=== PATIENT | female | born 1955 | race Caucasian/White ===

== ENCOUNTER 2019-12-24 14:16 | Outpatient (CLI) | payer MEDICARE, BC, SELFPAY ==
--- NOTE | ~2019-12-24 | CT_ITS ---
EXAMINATION: CT lung screening EXAM DATE: 12/24/2019 14:44 INDICATION: Personal history of nicotine dependence. TECHNIQUE: Spiral low dose CT of the chest without contrast. Axial, coronal and sagittal images were reviewed. The dose-length product (DLP) for this examination was 81.55 mGy-cm. The exposure was ta ilored according to patient size (auto mA exposure control), and iterative reconstruction (ASIR) was used as additional dose reduction technique. Comparison is made to prior examination from 12/05/2018. FINDINGS: Interval decrease in size of previously seen right upper lobe reticulonodular opacities. T here is moderate emphysema. Tracheobronchial tree is patent. There is no mediastinal, hilar or axi llary lymphadenopathy. There are no pleural or pericardial effusions. There is no pneumothorax. Heart normal in size. There is mild coronary arterial calcification, arterial sclerosis. Upper abd omen is unremarkable. There is mild to moderate thoracic spondylosis without osteoblastic or osteol ytic lesions identified. IMPRESSION: Lung-RADS category 2, benign appearance or behavior (<1% chance of malignancy); recommend continued LDCT screening in 1 year. Reviewed, dictated and finalized at location B. L CADD TECHNICIAN
== END 2019-12-24 14:17 | disposition home or self-care (01) ==
PROVIDERS: PCP Family Medicine; Visit Provider Nurse Practitioner Family
DX: Z12.2 Encounter for screening for malignant neoplasm of respiratory organs (principal); Z87.891 Personal history of nicotine dependence
CPT/HCPCS: G0297

== ENCOUNTER 2022-05-10 15:09 | Outpatient (CLI) | payer MEDICARE, OTHER, SELFPAY ==
--- NOTE | ~2022-05-10 | CT_ITS ---
EXAMINATION: CT lung screening DATE: 05/10/2022 15:40 INDICATION: Hypoxia. Shortness of breath. TECHNIQUE: Computed tomography (CT) of the chest was performed without intravenous contrast. The dose -length product was 67.67 mGy-cm. Automated exposure control and iterative reconstruction technique w ere employed. COMPARISON: CT dated 12/24/2019 FINDINGS: Heart size normal. No significant pleural or pericardial effusion. No thoracic lymphadenopa thy. Upper abdomen is unremarkable. There is atherosclerosis of the aorta and coronary arteries. Ther e are small nodules in the right upper lobe with peripheral scarring. Largest nodules measure approxi mately 2-3 mm. No endobronchial lesions. There is focal scarring/atelectasis in the right lower lobe which is unchanged. No endobronchial lesions. Severe bullous emphysema. There is evidence for chronic granulomatous disease. There is dextroscoliosis. No focal lytic or blastic lesions. Moderate thoraci c spondylosis. IMPRESSION: 1. Lung-RADS category 2: Benign appearance or behavior. Continue annual screening with noncontrast lo w-dose chest CT in 12 months. Reviewed, dictated and finalized at location A. IMPRESSION: 1. Lung-RADS category 2: Benign appearance or behavior. Continue annual screeni ng with noncontrast low-dose chest CT in 12 months.
== END 2022-05-10 15:10 | disposition home or self-care (01) ==
LOC: ANHIMG 15:10
PROVIDERS: PCP Nurse Practitioner Family; Visit Provider Nurse Practitioner Family
DX: Z12.2 Encounter for screening for malignant neoplasm of respiratory organs (principal); Z87.891 Personal history of nicotine dependence
CPT/HCPCS: 71271

== ENCOUNTER 2022-10-05 14:16 | Outpatient (CLI) | payer MEDICARE, OTHER, SELFPAY ==
[2022-10-05 19:11] LABS: Basophils Percent Auto 0.5 % (0.2-1.2); Eosinophils Absolute Auto 0.2 K/mm3 (0-0.3); Eosinophils Percent Auto 1.9 % (0-4.4); Hematocrit 38.1 % (37.0-47.0); Hemoglobin 11.3 g/dL (12.0-15.0); Immature Granulocyte Absolute 0.01 K/mm3 (0.00-0.031); Immature Granulocyte Percent A 0.1 % (0-0.5); Lymphocytes Absolute Auto 3.24 K/mm3 (0.9-3.2); Lymphocytes Percent Auto 41.8 % (18.3-44.2); Mean Corpuscular HGB Conc 29.7 g/dl (32-36); Mean Corpuscular Hemoglobin 26.6 pg (26-34); Mean Corpuscular Volume 89.6 fl (80-100); Mean Platelet Volume 11.7 fl (7.4-10.4); Monocytes Absolute Auto 0.7 K/mm3 (0.1-0.6); Monocytes Percent Auto 9.4 % (2.6-8.5); Neutrophils Absolute Auto 3.6 K/mm3 (1.3-6.7); Neutrophils Percent Auto 46.3 % (45.5-73.1); Platelet Count Result 248 k/mm3 (150-375); Red Blood Count 4.25 M/mm3 (4.2-5.4); Red Cell Distribution Width 14.1 % (11.5-14.5); White Blood Count 7.8 K/mm3 (4.5-10.0)
[2022-10-05 19:34] LABS: Hypochromasia 1+ (NORMAL); Platelet Estimate Adequate (Adequate)
[2022-10-05 19:38] LABS: Alanine Aminotransferase 17 U/L (6-35); Albumin Level 3.8 g/dL (3.5-5.1); Alkaline Phosphatase 107 U/L (38-126); Anion Gap 1 mmol/L (8-16); Aspartate Amino Transferase 31 U/L (14-36); Bilirubin,Total 0.2 mg/dL (0.2-1.3); Blood Urea Nitrogen 8 mg/dL (7-17); Calcium 8.5 mg/dL (8.4-10.2); Carbon Dioxide 39 mmol/L (22-30); Chloride 98 mmol/L (98-107); Cholesterol 156 mg/dL (0-200); Estimated Glomerular Filt Rate > 60; Glucose 93 mg/dL (65-110); HDL Direct 64 mg/dL; Potassium 4.1 mmol/L (3.4-5.0); Sodium 138 mmol/L (137-145); Triglycerides 77 mg/dL (<150)
[2022-10-05 19:49] LABS: LDL Cholesterol Direct 54 mg/dL
== END 2022-10-05 14:17 | disposition home or self-care (01) ==
LOC: ANHGOSHLAB 14:18
PROVIDERS: PCP Nurse Practitioner Family; Visit Provider Nurse Practitioner Family
DX: E78.5 Hyperlipidemia, unspecified (principal); I10 Essential (primary) hypertension
CPT/HCPCS: 36415; 80053; 80061; 84443; 85025

== ENCOUNTER 2022-12-03 14:47 | Outpatient (CLI) | payer MEDICARE, OTHER, SELFPAY ==
--- NOTE | ~2022-12-03 | MM_ITS ---
EXAMINATION: MM screening ana BI w sally HISTORY: Screening mammogram TECHNIQUE: Craniocaudal and mediolateral oblique 3-D tomosynthesis images were obtained and synthetic 2-D images were generated. CAD analysis was submitted and interpreted. COMPARISON: 10/08/2018, 10/26/2016 bilateral screening mammogram examinations BREAST PARENCHYMAL COMPOSITION: There are scattered areas of fibroglandular density. FINDINGS: There is no evidence of suspicious mass, calcification, or architectural distortion to sugg est malignancy in either breast. There has been no suspicious interval change. IMPRESSION: 1. No mammographic evidence of malignancy. 2. Recommend routine screening mammography in one year. BI-RADS Category 1: Negative Reviewed, dictated and finalized at location A. PULLER
--- NOTE | ~2022-12-03 | DEXA_ITS ---
Bone Density Report Name: KAROL DUNBAR Age: 67 Sex: Female Ethnicity: White Date of : 1955 Indication: postmenopausal; screening for osteoporosis; height loss; asthma or emphysema; secondary osteoporosis; Referring Provider: OLIVERIO RO Study: Bone densitometry was performed. Exam Date: December 03, 2022 Accession number: [id number] Bone Density: Region BMD T-score Z-score Classification AP Spine(L1-L4) 0.942 -1.0 1.0 Normal Femoral Neck (Left) 0.611 -2.1 -0.5 Osteopenia Total Hip (Left) 0.617 -2.7 -1.3 Osteoporosis Femoral Neck (Right) 0.436 -3.7 -2.1 Osteoporosis Total Hip (Right) 0.515 -3.5 -2.1 Osteoporosis Total Hip Mean 0.566 -3.1 -1.7 Osteoporosis World Health Organization criteria for BMD impression classify patients as: Normal (T-score at or above -1.0), Osteopenia (T-score between -1.0 and -2.5), or Osteoporosis (T-score at or below -2.5). 10-year Fracture Risk: FRAX not reported because: Some T-score for Spine Total or Hip Total or Femoral Neck at or below -2.5 Clinical Information Provided by Patient: Has secondary osteoporosis Has the following medical conditions: Asthma or Emphysema Patient maximum height was 62 Menopause Age: 44 No regular weight bearing exercise Drinks caffeinated beverages Onset of menses at age 11 Number of children 0 Impression: The patient has osteoporosis, based on the Right Femoral Neck T-score. Discussion: HIGH RISK OF FRACTURE. BONE DENSITY IS UNDESIRABLY LOW AT ONE OR MORE SKELETAL SITES, CONSISTENT WITH OSTEOPOROSIS. ALSO, BONE DENSITY IS LOWER THAN EXPECTED FOR AGE AND SEX AT ONE OR MORE SKELETAL SITES; RECOMMEND A DILIGENT SEARCH FOR SECONDARY CAUSES OF BONE LOSS. This patient's lowest T-score meets the World Health Organization's (WHO) criteria for osteoporosis at one or more sites (T-score -2.5 or below). In untreated patients, the risk of osteoporotic fracture increases approximately two-fold for each 1.0 SD decrease in T-score. Low bone density is not the only risk factor for fracture; also consider factors such as patient's age, frailty or poor health, risk of falling, risk of injury, previous osteoporotic fracture, family history of osteoporosis, cigarette smoking, low body weight, etc. Not everyone with low bone mineral density has osteoporosis; osteomalacia and other metabolic bone disorders should also be considered. Patients who have osteoporosis should be evaluated for specific diseases and conditions (secondary causes) that may cause or contribute to bone loss. The [place] Association of Clinical Endocrinologists (AACE) and National Osteoporosis Foundation (NOF) recommend pharmacologic intervention for all postmenopausal women whose T-score is in this range. Also, this patient's bone mineral density is below the range consid
== END 2022-12-03 14:48 | disposition home or self-care (01) ==
LOC: ANHIMG 14:48
PROVIDERS: PCP Nurse Practitioner Family; Visit Provider Nurse Practitioner Family
DX: Z12.31 Encounter for screening mammogram for malignant neoplasm of breast (principal); Z78.0 Asymptomatic menopausal state; M85.852 Other specified disorders of bone density and structure, left thigh; M81.0 Age-related osteoporosis without current pathological fracture
CPT/HCPCS: 77063; 77067; 77080

== ENCOUNTER 2023-04-17 13:59 | Outpatient (CLI) | payer MEDICARE, OTHER, SELFPAY ==
[2023-04-17 17:00] LABS: Basophils Absolute Auto 0.1 K/mm3 (0.0-0.1); Basophils Percent Auto 0.6 % (0.2-1.2); Eosinophils Absolute Auto 0.1 K/mm3 (0-0.3); Eosinophils Percent Auto 1.1 % (0-4.4); Hematocrit 38.9 % (37.0-47.0); Hemoglobin 11.7 g/dL (12.0-15.0); Immature Granulocyte Absolute 0.02 K/mm3 (0.00-0.031); Immature Granulocyte Percent A 0.2 % (0-0.5); Lymphocytes Absolute Auto 3.15 K/mm3 (0.9-3.2); Lymphocytes Percent Auto 38.5 % (18.3-44.2); Mean Corpuscular HGB Conc 30.1 g/dl (32-36); Mean Corpuscular Hemoglobin 26.7 pg (26-34); Mean Corpuscular Volume 88.6 fl (80-100); Monocytes Absolute Auto 0.9 K/mm3 (0.1-0.6); Monocytes Percent Auto 11.2 % (2.6-8.5); Neutrophils Percent Auto 48.4 % (45.5-73.1); Platelet Count Result 336 k/mm3 (150-375); Red Blood Count 4.39 M/mm3 (4.2-5.4); Red Cell Distribution Width 13.9 % (11.5-14.5); White Blood Count 8.2 K/mm3 (4.5-10.0)
[2023-04-17 17:16] LABS: Cholesterol 155 mg/dL (0-200); HDL Direct 70 mg/dL; Triglycerides 72 mg/dL (<150)
[2023-04-17 17:28] LABS: LDL Cholesterol Direct 63 mg/dL
[2023-04-17 17:48] LABS: Thyroid Stimulating Hormone 0.698 uIU/mL (0.465-4.680)
[2023-04-17 22:13] LABS: Vitamin D 25 Hydroxy < 12.8 ng/mL
== END 2023-04-17 14:00 | disposition home or self-care (01) ==
LOC: ANHGOSHLAB 14:01
PROVIDERS: PCP Nurse Practitioner Family; Visit Provider Nurse Practitioner Family
DX: Z00.00 Encounter for general adult medical examination without abnormal findings (principal); Z13.21 Encounter for screening for nutritional disorder; I10 Essential (primary) hypertension; Z13.220 Encounter for screening for lipoid disorders; Z13.29 Encounter for screening for other suspected endocrine disorder
CPT/HCPCS: 36415; 80061; 82306; 84443; 85025

== ENCOUNTER 2023-05-13 12:47 | Outpatient (CLI) | payer MEDICARE, OTHER, SELFPAY ==
--- NOTE | ~2023-05-13 | CT_ITS ---
CT Scan of the Chest without Contrast: Clinical Indication: Lung cancer screening, personal history of nicotine dependence Technique: Contiguous sections were acquired throughout the chest without intravenous contrast. Dose reduction technique was used on this scan by utilizing automated exposure control and iterative recon struction technique. The dose-length product (DLP) was 57.88 mGy-cm. COMPARISON: 05/10/2022, 12/24/2019 Findings: There is no evidence of any significant mediastinal, hilar or axillary lymphadenopathy. Small calcifi ed mediastinal and right hilar lymph nodes are present. There are atherosclerotic calcifications of t he aorta and coronary arteries. There is no evidence of pleural or pericardial effusion. There is severe emphysema. Stable focal areas of right pleural scarring. Calcified right lower lobe g ranuloma present. Images through the upper abdomen reveal no abnormalities. Impression: Lung RADS 2: Benign appearance. 12 month follow-up screening CT advised. Severe emphysema, unchanged. Reviewed, dictated and finalized at [facility]. Impression: Lung RADS 2: Benign appearance. 12 month follow-up screening CT advised. Severe emphysema, unchanged.
== END 2023-05-13 12:48 | disposition home or self-care (01) ==
PROVIDERS: PCP Nurse Practitioner Family; Visit Provider Nurse Practitioner Family
DX: Z12.2 Encounter for screening for malignant neoplasm of respiratory organs (principal); Z87.891 Personal history of nicotine dependence
CPT/HCPCS: 71271

== ENCOUNTER 2024-05-21 12:15 | Outpatient (CLI) | payer MEDICARE, OTHER, SELFPAY ==
--- NOTE | ~2024-05-21 | CT_ITS ---
CT Scan of the Chest without Contrast: Clinical Indication: Lung cancer screening, nicotine dependence COMPARISON: 05/13/2023 Technique: Contiguous sections were acquired throughout the chest without intravenous contrast. Dose reduction technique was used on this scan by utilizing automated exposure control and iterative recon struction technique. The dose-length product (DLP) was 63.34 mGy-cm. Findings: There is no evidence of any significant mediastinal, hilar or axillary lymphadenopathy. Small calcifi ed mediastinal lymph nodes are present. Mild coronary artery calcifications are present. There is no evidence of pleural or pericardial effusion. Advanced emphysema and right apical bullous changes are again present. Stable focal irregular probabl e scarring in the right upper lobe peripherally. Stable right lower lobe scarring. No suspicious pulm onary nodule seen. Images through the upper abdomen reveal no abnormalities. Impression: Lung RADS 2: Benign appearance. 12 month follow-up screening CT advised. Reviewed, dictated and finalized at [facility]. Impression: Lung RADS 2: Benign appearance. 12 month follow-up screening CT advised.
== END 2024-05-21 12:16 | disposition home or self-care (01) ==
LOC: ANHIMG 12:18
PROVIDERS: PCP Nurse Practitioner Family; Visit Provider Nurse Practitioner Family
DX: Z12.2 Encounter for screening for malignant neoplasm of respiratory organs (principal); Z87.891 Personal history of nicotine dependence
CPT/HCPCS: 71271

== ENCOUNTER 2025-02-25 12:29 | Outpatient (CLI) | payer MEDICARE, OTHER, SELFPAY ==
--- NOTE | ~2025-02-25 | XR_ITS ---
XR chest 2V 02/25/2025 12:52 Indication: Dyspnea Procedure: 2 view chest Comparison: 01/28/2012 Findings: The lungs are hyperinflated which is consistent with, but not diagnostic of chronic obstruc tive pulmonary disease. There is evidence of chronic granulomatous disease. Heart size normal. There is atherosclerosis of the aorta. No focal air space disease, pulmonary edema, pleural effusion or brian pected pneumothorax. There is scoliosis. There is moderate-severe thoracic spondylosis. Impression: 1: No acute cardiopulmonary disease. Reviewed, dictated and finalized at location A. Impression: 1: No acute cardiopulmonary disease.
== END 2025-02-25 12:30 | disposition home or self-care (01) ==
LOC: GOSHIMG 12:31
PROVIDERS: PCP Family Medicine; Visit Provider Nurse Practitioner Family
DX: R06.00 Dyspnea, unspecified (principal)
CPT/HCPCS: 71046

== ENCOUNTER 2025-05-03 14:22 | Outpatient (CLI) | payer MEDICARE, OTHER, SELFPAY ==
--- OUTSIDE RECORDS SUMMARY | 2025-05-03 14:29 | XMS_ITS | Clinical Summary ---
Author Organization [facility] Physician Office Building [address] [place] [id number] Care Team Providers Care Editorial Cartoonist Name Role Phone Gianna Cruz MD Primary Care Provider Allergies No known active allergies Medications roflumilast (DALIRESP) 500 mcg tabletIndications :Prevention of Bronchospasm with Chronic Bronchitis Take 1 tablet (500 mcg total) by mouth daily 90 tablet 3 0 Active buPROPion (WELLBUTRIN) 100 mg tablet Take 1 tablet (100 mg total) by mouth 2 (two) times a day 180 tablet 3 0 Active albuterol HFA (PROVENTIL HFA,VENTOLIN HFA,PROAIR HFA) 90 mcg/actuation inhaler Inhale 2 puffs every 6 (six) hours as needed for wheezing 1 Inhaler 3 0 Active aspirin 81 mg enteric coated tablet Take 1 tablet (81 mg total) by mouth daily 90 tablet 3 0 Active atorvastatin (LIPITOR) 80 mg tablet TAKE 1 TABLET(80 MG) BY MOUTH DAILY 90 tablet 3 4 Active carvediloL (COREG) 6.25 mg tablet TAKE 1 TABLET(6.25 MG) BY MOUTH TWICE DAILY WITH MEALS 180 tablet 1 5 Active lisinopriL (PRINIVIL,ZESTRIL ) 5 mg tablet TAKE 1 TABLET(5 MG) BY MOUTH DAILY 90 tablet 1 5 Active Active Problems Problem Noted Date Diagnosed Date Primary hypertension 04/16/2023 Assessment & Plan (05/04/2024 2:05 PM CDT): Well controlled with carvedilol and lisinopril. Continue to monitor blood pressure and may adjust as needed. Assessment & Plan (11/08/2023 2:54 PM CASE MANAGERS): Controlled with carvedilol and lisinopril. No changes recommended. Assessment & Plan (04/16/2023 3:20 PM CDT): Controlled. Continue carvedilol and lisinopril. Chronic obstructive pulmonary disease 11/14/2021 Assessment & Plan (11/14/2021 2:08 PM CASE MANAGERS): Stable on home O2. Hyperlipidemia 11/14/2021 Assessment & Plan (05/04/2024 2:05 PM CDT): Continue high-intensity statin, atorvastatin 80 mg daily. Assessment & Plan (11/08/2023 2:54 PM CASE MANAGERS): Continue high-intensity statin, atorvastatin 80 mg daily Assessment & Plan (04/16/2023 3:18 PM CDT): Stable, continue atorvastatin Assessment & Plan (09/14/2022 3:31 PM CASE MANAGERS): Continue atorvastatin. Assessment & Plan (11/14/2021 2:08 PM CASE MANAGERS): Check Lipids, continue atorvastatin Coronary artery disease invo lving [place] coronary artery of [place] heart without angina pectoris 05/17/2020 Assessment & Plan (05/04/2024 2:05 PM CDT): The patient remains asymptomatic. Continue aspirin and carvedilol. Assessment & Plan (11/08/2023 2:54 PM CASE MANAGERS): Doing well. Continue aspirin and carvedilol. Assessment & Plan (04/16/2023 3:18 PM CDT): No angina, continue ASA and carvedilol. Assessment & Plan (09/14/2022 3:31 PM CASE MANAGERS): Remains asymptomatic. Continue aspirin. Assessment & Plan (11/14/2021 2:08 PM CASE MANAGERS): Remains asymptomatic now a decade post stent. Assessment & Plan (05/16/2021 1:30 PM CDT): Cardiac stable. No changes recommended History of percutaneous coronary intervention Immunizations Immunization Administration Dates Next Due Pfizer SARS-CoV-2 Monovalent Vaccination (12+ Yrs) PURPLE 01/10/2021,12/20/2020 Social History Tobacco Use Types Packs/Day Years Used Date Smoking Tobacco: Former Smokeless Tobacco: Never Tobacco Cessation:Counseling Given: Not Answered Personal Safety Answer Date Recorded Getting School Help Needed Not on file 11/01 Comments Unknown Sex and Gender Information Value Date Recorded Sex Assigned at Not on file Legal Sex Female 11:02 AM CASE MANAGERS Gender Identity Not on file Sexual Orientation Not on file Obstetrics History Last Filed Vital Signs Vital Sign Reading Time Taken Comments Blood Pressure 134/69 05/04/2024 1:37 PM CDT Pulse 73 05/04/2024 1:37 PM CDT Temperature 36.6 C (97.8 F) 05/17/2020 1:04 PM CDT Respiratory Rate 16 05/04/2024 1:37 PM CDT Oxygen Saturation 98% 05/04/2024 1:37 PM CDT Inhaled Oxygen Concentration - - Weight 50.3 kg (111 lb) 05/04/2024 1:37 PM CDT Height 152.4 cm (5') 11/08/2023 2:01 PM CASE MANAGERS Body Mass Index 21.68 11/08/2023 2:01 PM CASE MANAGERS Plan of Treatment Health Maintenance Due Date Last Done Comments Breast Cancer Screening-Mammogram 1955 Colon Cancer Screening-Colonoscopy 1955 Depression Screening 1955 Fall Risk Assessment 1955 Hepatitis C Screening 1955 Osteoporosis Screening-Bone Density Scan 1955 Hepatitis B Screening 1973 Pneumococcal vaccine 65+ (1 of 2 - PCV) 1974 Zoster Vaccine (1 of 2) 2005 Well Visit 65+ 2020 DTaP/Tdap/Td Vaccine (2 - Td or Tdap) 10/28/2023 10/28/2013 Covid-19 Vaccine (3 - 2023-2 5 season) 2024 01/10/2021, 12/20/2020 Influenza Vaccine (Season Ended) 2025 08/16/2019, 08/25/2018, 08/30/2016, Additional history exists Insurance MEDICARE [facility] Address: [address] [address] [place] [address] [employer] [facility] Address: [address] [address] [facility] MEDICARE [facility] Independent Space INSURANCE [employer] Care Teams Editorial Cartoonist Relationship Specialty Start Date End Date Gianna Cruz MD PCP - General Family Practice 05/16/21
--- OUTSIDE RECORDS SUMMARY | 2025-05-03 14:29 | XMS_ITS | Referral Summary ---
Author Organization [facility] Physician Office Building [address] [place] [id number] Care Team Providers Care Manager Cardiovascular Name Role Phone Gianna Cruz MD Primary [...] needed. Assessment & Plan (11/08/2023 2:54 PM SUPERVISOR ADVICE): Controlled with carvedilol and lisinopril. No changes recommended. Assessment & Plan (04/16/2023 3:20 PM CDT): Controlled. Continue carvedilol and lisinopril. Chronic obstructive pulmonary disease 11/14/2021 Assessment & Plan (11/14/2021 2:08 PM SUPERVISOR ADVICE): Stable on home O2. Hyperlipidemia 11/14/2021 Assessment & Plan (05/04/2024 2:05 PM CDT): Continue high-intensity statin, atorvastatin 80 mg daily. Assessment & Plan (11/08/2023 2:54 PM SUPERVISOR ADVICE): Continue high-intensity statin, atorvastatin 80 mg daily Assessment & Plan (04/16/2023 3:18 PM CDT): Stable, continue atorvastatin Assessment & Plan (09/14/2022 3:31 PM SUPERVISOR ADVICE): Continue atorvastatin. Assessment & Plan (11/14/2021 2:08 PM SUPERVISOR ADVICE): Check Lipids, continue atorvastatin Coronary artery disease invo lving [place] coronary artery of [place] heart without angina pectoris 05/17/2020 Assessment & Plan (05/04/2024 2:05 PM CDT): The patient remains asymptomatic. Continue aspirin and carvedilol. Assessment & Plan (11/08/2023 2:54 PM SUPERVISOR ADVICE): Doing well. Continue aspirin and carvedilol. Assessment & Plan (04/16/2023 3:18 PM CDT): No angina, continue ASA and carvedilol. Assessment & Plan (09/14/2022 3:31 PM SUPERVISOR ADVICE): Remains asymptomatic. Continue aspirin. Assessment & Plan (11/14/2021 2:08 PM SUPERVISOR ADVICE): Remains asymptomatic now a decade post stent. [...] on file Legal Sex Female 11:02 AM SUPERVISOR ADVICE Gender Identity Not on file Sexual Orientation Not on file Last Filed Vital Signs Vital Sign Reading [...] Height 152.4 cm (5') 11/08/2023 2:01 PM SUPERVISOR ADVICE Body Mass Index 21.68 11/08/2023 2:01 PM SUPERVISOR ADVICE Plan of Treatment Not on file Insurance MEDICARE [employer] [facility] MEDICARE [facility] Member Subscriber Plan / Payer (Ef fective 2022-Present) Name:Abbey Benavides Relation to Subscriber:Spouse Name:MITCH BENAVIDES Date of :1953 (Home) Address: [address] [place] [address] Payer ID:[id number] (NAIC) Type:COMMERCIAL Address: [place] [id number] [employer] INSURANCE [employer] Care Teams Manager Cardiovascular Relationship Specialty Start Date End Date Gianna Cruz MD PCP - General Family Practice 05/16/21
[2025-05-03 18:39] LABS: Hematocrit 36.3 % (37.0-47.0); Hemoglobin 10.1 g/dL (12.0-15.0); Mean Corpuscular HGB Conc 27.8 g/dl (32-36); Mean Corpuscular Hemoglobin 28.4 pg (26-34); Mean Corpuscular Volume 102.0 fl (80-100); Platelet Count Result 202 k/mm3 (150-375); Red Blood Count 3.56 M/mm3 (4.2-5.4); White Blood Count 5.6 K/mm3 (4.5-10.0)
[2025-05-03 19:09] LABS: Alanine Aminotransferase 16 U/L (6-35); Albumin Level 3.3 g/dL (3.5-5.1); Alkaline Phosphatase 76 U/L (38-126); Aspartate Amino Transferase 29 U/L (14-36); Bilirubin,Total 0.1 mg/dL (0.2-1.3); Blood Urea Nitrogen 11 mg/dL (7-17); Calcium 8.7 mg/dL (8.4-10.2); Chloride 92 mmol/L (98-107); Cholesterol 158 mg/dL (0-200); Estimated Glomerular Filt Rate > 60; Glucose 93 mg/dL (65-110); HDL Direct 71 mg/dL; Potassium 4.2 mmol/L (3.4-5.0); Sodium 140 mmol/L (137-145); Total Protein 6.2 g/dL (6.3-8.2); Triglycerides 69 mg/dL (<150)
[2025-05-03 19:13] LABS: Carbon Dioxide > 40 mmol/L (22-30)
[2025-05-03 19:23] LABS: Hemoglobin A1C 4.9 % (<5.7)
[2025-05-03 19:42] LABS: Thyroid Stimulating Hormone 1.430 uIU/mL (0.465-4.680)
[2025-05-03 20:01] LABS: Vitamin B12 232.0 pg/mL (239-931)
[2025-05-08 15:48] LABS: Vitamin D 1,25 (OH)2 Total 46 pg/mL (18-72); Vitamin D2 1,25 (OH)2 <8 pg/mL; Vitamin D3 1,25 (OH)2 46 pg/mL
== END 2025-05-03 14:23 | disposition home or self-care (01) ==
LOC: ANHGOSHLAB 14:24
PROVIDERS: PCP Nurse Practitioner Family; Visit Provider Nurse Practitioner Family
DX: E55.9 Vitamin D deficiency, unspecified (principal); I10 Essential (primary) hypertension; R73.03 Prediabetes; R09.02 Hypoxemia; E78.5 Hyperlipidemia, unspecified; E53.8 Deficiency of other specified B group vitamins
CPT/HCPCS: 36415; 80053; 80061; 82607; 82652; 83036; 84443; 85027

== ENCOUNTER 2025-05-14 13:37 | Inpatient (IN) | payer MEDICARE, OTHER, SELFPAY ==
--- NOTE | ~2025-05-14 | XR_ITS ---
XR abdomen/kub 1V 05/19/2025 10:18 INDICATION: Obstruction versus constipation TECHNIQUE: KUB COMPARISON: None FINDINGS: Bowel gas pattern is normal. There is no evidence of free air, mass, organomegaly, ascites or obstruction. There is moderate fecal impaction in the colon. No abnormal calculi are seen. There is a intertrochanteric nail of the right femur. Severe osteoarthritis of the hips. There is moderate lower thoracic and lumbar spondylosis with levoscoliosis. IMPRESSION: 1: Moderate fecal impaction of the colon.. Reviewed, dictated and finalized at location A.
--- NOTE | ~2025-05-14 | XR_ITS ---
XR chest 1V 05/14/2025 14:29 Indication: Possible hip fracture Procedure: AP view of the chest Comparison: 02/25/2025 Findings: Heart size normal. No focal air space disease, pulmonary edema, pleural effusion or suspect ed pneumothorax. The lungs are hyperinflated which is consistent with, but not diagnostic of chronic obstructive pulmonary disease. No acute osseous abnormality. Impression: 1: No acute cardiopulmonary disease. Reviewed, dictated and finalized at location B. Impression: 1: No acute cardiopulmonary disease.
--- NOTE | ~2025-05-14 | XR_ITS ---
XR hip RT 2V w AP pelvis, XR femur RT min 2V 05/14/2025 14:29 Indication: Possible hip fracture. Procedure: AP pelvis and 2 views right hip and 2 views of the right femur Comparison: No prior studies for comparison. Findings: There is a displaced right femoral intertrochanteric fracture with varus angulation. Osteop enia. There is osteoarthritis of the hips which appear symmetric. There is lower lumbar spondylosis. Pelvic rings intact. No focal soft tissue abnormality. No foreign bodies. Impression: 1: Displaced right femoral intertrochanteric fracture with varus angulation. Reviewed, dictated and finalized at location B. Impression: 1: Displaced right femoral intertrochanteric fracture with varus angulation. Impression: 1: Displaced right femoral intertrochanteric fracture with varus angulation.
--- NOTE | ~2025-05-14 | XR_ITS ---
XR surgery orthopedic 05/15/2025 10:59 Indication: Right IT nail placement Procedure: 6 fluoroscopic images of the right hip. 1 minute 10 seconds of fluoroscopy time. Comparison: Right hip series dated 05/14/2025 Findings: Interval placement of intertrochanteric nail with dynamic compression screw transfixing the right femoral neck. Fracture fragments in near-anatomic alignment post reduction. There is a single distal interlocking screw. Impression: 1: Near-anatomic alignment of right femoral intertrochanteric fracture status post reduction with an IT nail. Reviewed, dictated and finalized at location A. Impression: 1: Near-anatomic alignment of right femoral intertrochanteric fracture status p ost reduction with an IT nail.
[2025-05-14 13:37] VITALS: BP 149/60; PULSE 81; RESP 18; TEMP 36.8; O2SAT 100
--- OUTSIDE RECORDS SUMMARY | 2025-05-14 14:06 | XMS_ITS | Referral Summary ---
Author Organization [facility] Physician Office Building [address] [place] [id number] Care Team Providers Care Web Master Name Role Phone Gianna Cruz MD Primary [...] needed. Assessment & Plan (11/08/2023 2:54 PM SPIRITUAL CARE COORDINATOR): Controlled with carvedilol and lisinopril. No changes recommended. Assessment & Plan (04/16/2023 3:20 PM CDT): Controlled. Continue carvedilol and lisinopril. Chronic obstructive pulmonary disease 11/14/2021 Assessment & Plan (11/14/2021 2:08 PM SPIRITUAL CARE COORDINATOR): Stable on home O2. Hyperlipidemia 11/14/2021 Assessment & Plan (05/04/2024 2:05 PM CDT): Continue high-intensity statin, atorvastatin 80 mg daily. Assessment & Plan (11/08/2023 2:54 PM SPIRITUAL CARE COORDINATOR): Continue high-intensity statin, atorvastatin 80 mg daily Assessment & Plan (04/16/2023 3:18 PM CDT): Stable, continue atorvastatin Assessment & Plan (09/14/2022 3:31 PM SPIRITUAL CARE COORDINATOR): Continue atorvastatin. Assessment & Plan (11/14/2021 2:08 PM SPIRITUAL CARE COORDINATOR): Check Lipids, continue atorvastatin Coronary artery disease invo lving [place] coronary artery of [place] heart without angina pectoris 05/17/2020 Assessment & Plan (05/04/2024 2:05 PM CDT): The patient remains asymptomatic. Continue aspirin and carvedilol. Assessment & Plan (11/08/2023 2:54 PM SPIRITUAL CARE COORDINATOR): Doing well. Continue aspirin and carvedilol. Assessment & Plan (04/16/2023 3:18 PM CDT): No angina, continue ASA and carvedilol. Assessment & Plan (09/14/2022 3:31 PM SPIRITUAL CARE COORDINATOR): Remains asymptomatic. Continue aspirin. Assessment & Plan (11/14/2021 2:08 PM SPIRITUAL CARE COORDINATOR): Remains asymptomatic now a decade post stent. [...] on file Legal Sex Female 11:02 AM SPIRITUAL CARE COORDINATOR Gender Identity Not on file Sexual Orientation [...] Height 152.4 cm (5') 11/08/2023 2:01 PM SPIRITUAL CARE COORDINATOR Body Mass Index 21.68 11/08/2023 2:01 PM SPIRITUAL CARE COORDINATOR Plan of Treatment Not on file Insurance MEDICARE [employer] [facility] MEDICARE [facility] Member Subscriber Plan / Payer (Ef fective 2022-Present) Name:Abbey Benavides Relation to Subscriber:Spouse Name:MITCH BENAVIDES Date of :1953 (Home) Address: [address] [place] [address] Payer ID:[id number] (NAIC) Type:COMMERCIAL Address: [place] [id number] [employer] INS[employer]ANCE [employer] Care Teams Web Master Relationship Specialty Start Date End Date Gianna Cruz MD PCP - General Family Practice 05/16/21
--- OUTSIDE RECORDS SUMMARY | 2025-05-14 14:06 | XMS_ITS | Clinical Summary ---
Author Organization [facility] Physician Office Building [address] [place] [phone] Care Team Providers Care Field Sales Representative Name Role Phone Gianna Cruz MD Primary [...] needed. Assessment & Plan (11/08/2023 2:54 PM HEALTH CARE ANALYST): Controlled with carvedilol and lisinopril. No changes recommended. Assessment & Plan (04/16/2023 3:20 PM CDT): Controlled. Continue carvedilol and lisinopril. Chronic obstructive pulmonary disease 11/14/2021 Assessment & Plan (11/14/2021 2:08 PM HEALTH CARE ANALYST): Stable on home O2. Hyperlipidemia 11/14/2021 Assessment & Plan (05/04/2024 2:05 PM CDT): Continue high-intensity statin, atorvastatin 80 mg daily. Assessment & Plan (11/08/2023 2:54 PM HEALTH CARE ANALYST): Continue high-intensity statin, atorvastatin 80 mg daily Assessment & Plan (04/16/2023 3:18 PM CDT): Stable, continue atorvastatin Assessment & Plan (09/14/2022 3:31 PM HEALTH CARE ANALYST): Continue atorvastatin. Assessment & Plan (11/14/2021 2:08 PM HEALTH CARE ANALYST): Check Lipids, continue atorvastatin Coronary artery disease invo lving [place] coronary artery of [place] heart without angina pectoris 05/17/2020 Assessment & Plan (05/04/2024 2:05 PM CDT): The patient remains asymptomatic. Continue aspirin and carvedilol. Assessment & Plan (11/08/2023 2:54 PM HEALTH CARE ANALYST): Doing well. Continue aspirin and carvedilol. Assessment & Plan (04/16/2023 3:18 PM CDT): No angina, continue ASA and carvedilol. Assessment & Plan (09/14/2022 3:31 PM HEALTH CARE ANALYST): Remains asymptomatic. Continue aspirin. Assessment & Plan (11/14/2021 2:08 PM HEALTH CARE ANALYST): Remains asymptomatic now a decade post stent. [...] on file Legal Sex Female 11:02 AM HEALTH CARE ANALYST Gender Identity Not on file Sexual Orientation [...] Height 152.4 cm (5') 11/08/2023 2:01 PM HEALTH CARE ANALYST Body Mass Index 21.68 11/08/2023 2:01 PM HEALTH CARE ANALYST Plan of Treatment Health Maintenance Due Date [...] 5 season) 2024 01/10/2021, 12/20/2020 Influenza Vaccine (#1) 2025 9, 08/25/2018, 08/30/2016, Additional history exists Insurance MEDICARE [facility] Address: [address] [address] [place] [address] [employer] [facility] Address: [address] [phone] [facility] Member Subscriber Plan / Payer (Ef fective 2022-Present) Name:Abbey Benavides Relation to Subscriber:Spouse Name:MITCH BENAVIDES Date of :1953 (Home) Address: [address] [place] [address] Payer ID:[id number] (NAIC) Type:COMMERCIAL Address: [place] [phone] MEDICARE [facility] [employer] Care Teams Field Sales Representative Relationship Specialty Start Date End Date Gianna Cruz MD PCP - General Family Practice 05/16/21
--- NOTE | 2025-05-14 14:49 | ECG_ITS ---
Test Date: 2025-05-14 15:05:29 Measurements Intervals [place] Rate: 80 P: 85 WA: 151 QRS: 60 QRSD: 89 T: 75 QT: 354 QTc: 409 Interpretive Statements SINUS RHYTHM NORMAL ELECTROCARDIOGRAM No previous ECG available for comparison Electronically Signed On 05-15-2025 08:44:39 CDT by Mir Rodriguez M.D.
--- NOTE | 2025-05-14 14:51 | ED.FALL ---
HPI - Fall General Chief Complaint: Fall <Promise Miles PA-C - Last Filed: 05/14/25 19:12> Stated Complaint: fall <Promise Miles PA-C - Last Filed: 05/14/25 19:12> Time Seen by Provider: 05/14/25 13:48 <Promise Miles PA-C - Last Filed: 05/14/25 19:12> Source: patient <KALEY Leone Last Filed: 05/14/25 19:12> Mode of arrival: EMS <Promise Miles PA-C - Last Filed: 05/14/25 19:12> Limitations: no limitations <Promise Miles PA-C - Last Filed: 05/14/25 19:12> History of Present Illness HPI Narrative: Patient is a 70-year-old female who presents the ED via EMS with report of a fall. Patient reports she fell around 1:00 a.m. this morning while going to the bathroom. She states she fell on to her right side/hip. She was able to ambulate initially after the fall back to bed, but has not been able to ambulate since waking up this morning. She did not hit her head or lose consciousness. She is not on any anticoagulation. Denies syncope. Sustained some abrasions to her right forearm, but denies pain. Denies numbness. Patient has history of hypertension, CAD, COPD, chronically wears 4 L nasal cannula at baseline. <Promise Miles PA-C - Last Filed: 05/14/25 19:12> Related Data Home Medications: Home Medications ?Medication ?Instructions ?Recorded ?Confirmed ?Last Taken ?Type aspirin 81 mg tablet,delayed 81 mg PO DAILY 12/23/19 05/14/25 Unknown History release (Adult Aspirin Regimen) atorvastatin 80 mg tablet (Lipitor) 80 mg PO DAILY 12/23/19 05/14/25 Unknown History vitamin B complex (B 1 tablet PO DAILY 12/23/19 05/14/25 Unknown History Complex-Vitamin B12 tablet) carvedilol 12.5 mg tablet 6.25 mg PO Q12H 02/21/21 05/14/25 Unknown History <Promise Miles PA-C - Last Filed: 05/14/25 19:12> Allergies/Adverse Reactions: Allergies Allergy/AdvReac Type Severity Reaction Status Date / Time No Known Allergies Allergy Verified 05/14/25 13:48 <Promise Miles PA-C - Last Filed: 05/14/25 19:12> Review of Systems Review of Systems: All systems reviewed & are unremarkable except as noted in HPI. <Promise Miles PA-C - Last Filed: 05/14/25 19:12> All systems reviewed & are unremarkable except as noted in HPI and below <Promise Miles PA-C - Last Filed: 05/14/25 19:12> [facility] Past Medical History Medical History: Medical History Post herpetic neuralgia Neck and shoulder pain Depression Essential (primary) hypertension Dependence on continuous supplemental oxygen Hx of myocardial infarction stent placement - Follows with Dr King Glenroy CRUZ cardiology Lung nodule Osteoporosis HLD (hyperlipidemia) CAD (coronary artery disease) Chronic obstructive pulmonary disease Hypoxemia Former smoker Quit smoking in 2009, 30 pack years. <Promise Miles PA-C - Last Filed: 05/14/25 19:12> Family History Family History: Family History Sibling Family history of cardiovascular disease Mother Family history of cardiovascular disease, Onset Age: 71 Family history of dementia, Onset Age: 71 <Promise Miles PA-C - Last Filed: 05/14/25 19:12> Social History Social History: Social History Smoking packs per day: 1 Smoking cigarettes per day: 20.0 Years smoked: 30 Smoking pack-years: 30.00 Smoking status: Former smoker Second hand tobacco smoke exposure: Yes Alcohol intake: current Do You Feel Safe in your Home?: Yes Lack of Transportation: No Lack of Food: Never True Current Housing: I Have Housing Concerned About Future Housing: No Difficulty Paying Gas/Electric Bills: No Difficulty Paying for Meds: No Currently Unemployed: No Education: Associate Degree Difficulty w/ Childcare or Family Care: No Spiritual care concerns: No <Promise Miles PA-C - Last Filed: 05/14/25 19:12> Exam Narrative: GENERAL: Elderly, chronically ill-appearing, frail/thin, non-toxic, in no acute distress. HEAD: Normocephalic, atraumatic. RESPIRATORY: Airway patent, respirations nonlabored. Coarse lung sounds bilaterally. Occasional wheezing. On 4 L nasal cannula. CARDIOVASCULAR: Regular rate and rhythm without murmurs, rubs, or gallops. Pedal pulses are intact and easily palpable. MUSCULOSKELETAL: Shortening and external rotation noted of right lower extremity. Unable to perform any range of motion at right hip joint. Tenderness to palpation right anterior lateral hip joint. Sensation intact throughout right lower extremity. Able to wiggle toes. Abrasions/bruising to right forearm without focal tenderness. No tenderness over wrist. SKIN: Warm, dry, normal color. NEURO: A&O X3. Speech clear. No ataxic movements. PSYCHIATRIC: Appropriate mood and affect. Normal interaction. <KALEY Leone Last Filed: 05/14/25 19:12> Course SENIOR SALES DIRECTOR/PA Physician Supervision For this patient encounter, I reviewed the SENIOR SALES DIRECTOR or PA documentation, treatment plan, and medical decision making; and I had [id number] time with this patient. <Jose Ritchie MD - Last Filed: 05/14/25 22:03> Vital Signs Vital signs: Vital Signs Temperature 98.3 F 05/14/25 13:37 Pulse Rate 81 05/14/25 13:37 Respiratory Rate 18 05/14/25 13:37 Blood Pressure 149/60 H 05/14/25 13:37 Pulse Oximetry 100 05/14/25 13:37 Oxygen Delivery Nasal Cannula 05/14/25 13:37 Oxygen Flow Rate 4 05/14/25 13:37 Temperature 97.7 F 05/14/25 19:38 Pulse Rate 80 05/14/25 19:38 Respiratory Rate 18 05/14/25 19:38 Blood Pressure 133/61 05/14/25 19:38 Pulse Oximetry 98 05/14/25 20:56 Oxygen Delivery Nasal Cannula 05/14/25 20:56 Oxygen Flow Rate 3 05/14/25 20:56 <Promise Miles PA-C - Last Filed: 05/14/25 19:12> Vital Signs Temperature 98.3 F 05/14/25 13:37 Pulse Rate 81 05/14/25 13:37 Respiratory Rate 18 05/14/25 13:37 Blood Pressure 149/60 H 05/14/25 13:37 Pulse Oximetry 100 05/14/25 13:37 Oxygen Delivery Nasal Cannula 05/14/25 13:37 Oxygen Flow Rate 4 05/14/25 13:37 Temperature 97.7 F 05/14/25 19:38 Pulse Rate 80 05/14/25 19:38 Respiratory Rate 18 05/14/25 19:38 Blood Pressure 133/61 05/14/25 19:38 Pulse Oximetry 98 05/14/25 20:56 Oxygen Delivery Nasal Cannula 05/14/25 20:56 Oxygen Flow Rate 3 05/14/25 20:56 <Jose Ritchie MD - Last Filed: 05/14/25 22:03> MDM - Fall MDM Narrative Medical decision making narrative: Patient presented to ED status post fall last night with pain to right hip. Unable to ambulate this morning. Denies any other injuries with the fall. Denies head injury or LOC. Vital signs are stable upon arrival. Patient chronically wears 4 L nasal cannula. Oxygen saturation is stable on this currently. Patient denying shortness breath. She did ask for something for pain, but reported that she does not handle IV pain medication well. She takes oxycodone at home. Given dose of this. X-ray of right hip: Displaced right femoral intertrochanteric fracture with varus angulation. Consistent with clinical picture. Preop workup obtained. Chest x-ray clear. Discussed case with Dr. Burch, orthopedics, down in the ED to see patient. Will consult with anesthesiology to determine timing of surgery. Laboratory studies were fairly unremarkable. CMP did show bicarb greater than 40 which does appear fairly chronic for patient. ABG was obtained and showing mostly chronic hypercapnic hypoxic respiratory failure with compensation. Patient is resting very comfortably on her home oxygen. She is not in any respiratory distress. Is fully awake and alert and oriented. Did not feel she requires BiPAP at this time. Per respiratory, will decrease oxygen down to 3 L given significantly elevated PO2. EKG is without ischemic changes. Troponin is undetectable. Discussed case with Angelina OSHEA Hospitalist, accepted patient for admission. Patient and family are in agreement with plan and admission. <Promise Miles PA-C - Last Filed: 05/14/25 19:12> Medical Records Attestation: I reviewed the patient's medical records. <Promise Miles PA-C - Last Filed: 05/14/25 19:12> Lab Data Attestation: I reviewed the patient's lab results. <Promise Miles PA-C - Last Filed: 05/14/25 19:12> Result diagrams: 05/14/25 14:59 05/14/25 14:59 <Promise Miles PA-C - Last Filed: 05/14/25 19:12> Labs: Lab Results 05/14/25 05/14/25 05/14/25 Range/Units 14:59 14:59 14:59 WBC 9.1 (4.5-10.0) K/mm3 RBC 3.59 L (4.2-5.4) M/mm3 Hgb 10.3 L (12.0-15.0) g/dL Hct 34.7 L (37.0-47.0) % MCV 96.7 (80-100) fl MCH 28.7 (26-34) pg MCHC 29.7 L (32-36) g/dl RDW 14.1 (11.5-14.5) % Plt Count 144 L (150-375) k/mm3 MPV 11.2 H (7.4-10.4) fl Immature Gran % (Auto) 0.4 (0-0.5) % Neut % (Auto) 75.5 H (45.5-73.1) % Lymph % (Auto) 14.4 L (18.3-44.2) % [place] % (Auto) 9.5 H (2.6-8.5) % Eos % (Auto) 0.1 (0-4.4) % Baso % (Auto) 0.1 L (0.2-1.2) % Lymph # (Auto) 1.31 (0.9-3.2) K/mm3 [place] # (Auto) 0.9 H (0.1-0.6) K/mm3 Eos # (Auto) 0.0 (0-0.3) K/mm3 Baso # (Auto) 0.0 (0.0-0.1) K/mm3 Abs Immat Gran (auto) 0.04 H (0.00-0.031) K/mm3 Absolute Neuts (auto) 6.9 H (1.3-6.7) K/mm3 Absolute Nucleated RBC 0.000 (0.0-0.012) K/mm3 Band Neutrophils % Not Reportable Nucleated RBC % 0.0 (0.0-0.2) % Platelet Estimate Decreased (Adequate) Hypochromasia 1+ Schistocytes None seen PT 12.1 (11.1-14.7) Seconds INR 0.9 APTT 25.8 (22.3-36.8) Seconds Methemoglobin (0-1.5) %THb Sodium 138 (137-145) mmol/L Potassium 4.5 (3.4-5.0) mmol/L Chloride 94 L (98-107) mmol/L Carbon Dioxide > 40 H (22-30) mmol/L Anion Gap (4-12) mmol/L BUN 15 (7-17) mg/dL Creatinine 0.56 L (0.7-1.0) mg/dL Estim Creat Clear Calc Not Reportable Estimated GFR > 60 (59 - ) Glucose 99 (65-110) mg/dL Calcium 8.5 (8.4-10.2) mg/dL Magnesium 1.9 Cancelled (1.6-2.3) mg/dL Total Bilirubin 0.2 (0.2-1.3) mg/dL AST 26 (14-36) U/L ALT 19 (6-35) U/L Alkaline Phosphatase 75 (38-126) U/L Troponin I < 0.012 Cancelled (0.000-0.034) ng/mL Total Protein 6.1 L (6.3-8.2) g/dL Albumin 3.2 L (3.5-5.1) g/dL // Range/Units 16:31 WBC (4.5-10.0) K/mm3 RBC (4.2-5.4) M/mm3 Hgb (12.0-15.0) g/dL Hct (37.0-47.0) % MCV (80-100) fl MCH (26-34) pg MCHC (32-36) g/dl RDW (11.5-14.5) % Plt Count (150-375) k/mm3 MPV (7.4-10.4) fl Immature Gran % (Auto) (0-0.5) % Neut % (Auto) (45.5-73.1) % Lymph % (Auto) (18.3-44.2) % [place] % (Auto) (2.6-8.5) % Eos % (Auto) (0-4.4) % Baso % (Auto) (0.2-1.2) % Lymph # (Auto) (0.9-3.2) K/mm3 [place] # (Auto) (0.1-0.6) K/mm3 Eos # (Auto) (0-0.3) K/mm3 Baso # (Auto) (0.0-0.1) K/mm3 Abs Immat Gran (auto) (0.00-0.031) K/mm3 Absolute Neuts (auto) (1.3-6.7) K/mm3 Absolute Nucleated RBC (0.0-0.012) K/mm3 Band Neutrophils % Nucleated RBC % (0.0-0.2) % Platelet Estimate (Adequate) Hypochromasia Schistocytes PT (11.1-14.7) Seconds INR APTT (22.3-36.8) Seconds Methemoglobin 0.3 (0-1.5) %THb Sodium (137-145) mmol/L Potassium (3.4-5.0) mmol/L Chloride (98-107) mmol/L Carbon Dioxide (22-30) mmol/L Anion Gap (4-12) mmol/L BUN (7-17) mg/dL Creatinine (0.7-1.0) mg/dL Estim Creat Clear Calc Estimated GFR (59 - ) Glucose (65-110) mg/dL Calcium (8.4-10.2) mg/dL Magnesium (1.6-2.3) mg/dL Total Bilirubin (0.2-1.3) mg/dL AST (14-36) U/L ALT (6-35) U/L Alkaline Phosphatase (38-126) U/L Troponin I (0.000-0.034) ng/mL Total Protein (6.3-8.2) g/dL Albumin (3.5-5.1) g/dL <Promise Miles PA-C - Last Filed: 05/14/25 19:12> Lab Results 05/14/25 05/14/25 05/14/25 Range/Units 14:59 14:59 14:59 WBC 9.1 (4.5-10.0) K/mm3 RBC 3.59 L (4.2-5.4) M/mm3 Hgb 10.3 L (12.0-15.0) g/dL Hct 34.7 L (37.0-47.0) % MCV 96.7 (80-100) fl MCH 28.7 (26-34) pg MCHC 29.7 L (32-36) g/dl RDW 14.1 (11.5-14.5) % Plt Count 144 L (150-375) k/mm3 MPV 11.2 H (7.4-10.4) fl Immature Gran % (Auto) 0.4 (0-0.5) % Neut % (Auto) 75.5 H (45.5-73.1) % Lymph % (Auto) 14.4 L (18.3-44.2) % [place] % (Auto) 9.5 H (2.6-8.5) % Eos % (Auto) 0.1 (0-4.4) % Baso % (Auto) 0.1 L (0.2-1.2) % Lymph # (Auto) 1.31 (0.9-3.2) K/mm3 [place] # (Auto) 0.9 H (0.1-0.6) K/mm3 Eos # (Auto) 0.0 (0-0.3) K/mm3 Baso # (Auto) 0.0 (0.0-0.1) K/mm3 Abs Immat Gran (auto) 0.04 H (0.00-0.031) K/mm3 Absolute Neuts (auto) 6.9 H (1.3-6.7) K/mm3 Absolute Nucleated RBC 0.000 (0.0-0.012) K/mm3 Band Neutrophils % Not Reportable Nucleated RBC % 0.0 (0.0-0.2) % Platelet Estimate Decreased (Adequate) Hypochromasia 1+ Schistocytes None seen PT 12.1 (11.1-14.7) Seconds INR 0.9 APTT 25.8 (22.3-36.8) Seconds Methemoglobin (0-1.5) %THb Sodium 138 (137-145) mmol/L Potassium 4.5 (3.4-5.0) mmol/L Chloride 94 L (98-107) mmol/L Carbon Dioxide > 40 H (22-30) mmol/L Anion Gap (4-12) mmol/L BUN 15 (7-17) mg/dL Creatinine 0.56 L (0.7-1.0) mg/dL Estim Creat Clear Calc Not Reportable Estimated GFR > 60 (59 - ) Glucose 99 (65-110) mg/dL Calcium 8.5 (8.4-10.2) mg/dL Magnesium 1.9 Cancelled (1.6-2.3) mg/dL Total Bilirubin 0.2 (0.2-1.3) mg/dL AST 26 (14-36) U/L ALT 19 (6-35) U/L Alkaline Phosphatase 75 (38-126) U/L Troponin I < 0.012 Cancelled (0.000-0.034) ng/mL Total Protein 6.1 L (6.3-8.2) g/dL Albumin 3.2 L (3.5-5.1) g/dL 05/14/25 Range/Units 16:31 WBC (4.5-10.0) K/mm3 RBC (4.2-5.4) M/mm3 Hgb (12.0-15.0) g/dL Hct (37.0-47.0) % MCV (80-100) fl MCH (26-34) pg MCHC (32-36) g/dl RDW (11.5-14.5) % Plt Count (150-375) k/mm3 MPV (7.4-10.4) fl Immature Gran % (Auto) (0-0.5) % Neut % (Auto) (45.5-73.1) % Lymph % (Auto) (18.3-44.2) % [place] % (Auto) (2.6-8.5) % Eos % (Auto) (0-4.4) % Baso % (Auto) (0.2-1.2) % Lymph # (Auto) (0.9-3.2) K/mm3 [place] # (Auto) (0.1-0.6) K/mm3 Eos # (Auto) (0-0.3) K/mm3 Baso # (Auto) (0.0-0.1) K/mm3 Abs Immat Gran (auto) (0.00-0.031) K/mm3 Absolute Neuts (auto) (1.3-6.7) K/mm3 Absolute Nucleated RBC (0.0-0.012) K/mm3 Band Neutrophils % Nucleated RBC % (0.0-0.2) % Platelet Estimate (Adequate) Hypochromasia Schistocytes PT (11.1-14.7) Seconds INR APTT (22.3-36.8) Seconds Methemoglobin 0.3 (0-1.5) %THb Sodium (137-145) mmol/L Potassium (3.4-5.0) mmol/L Chloride (98-107) mmol/L Carbon Dioxide (22-30) mmol/L Anion Gap (4-12) mmol/L BUN (7-17) mg/dL Creatinine (0.7-1.0) mg/dL Estim Creat Clear Calc Estimated GFR (59 - ) Glucose (65-110) mg/dL Calcium (8.4-10.2) mg/dL Magnesium (1.6-2.3) mg/dL Total Bilirubin (0.2-1.3) mg/dL AST (14-36) U/L ALT (6-35) U/L Alkaline Phosphatase (38-126) U/L Troponin I (0.000-0.034) ng/mL Total Protein (6.3-8.2) g/dL Albumin (3.5-5.1) g/dL <Jose Ritchie MD - Last Filed: 05/14/25 22:03> ABG Data ABG results: 05/14/25 16:31 Puncture Site Left brachial ABG pH 7.329 L ABG pCO2 80.7 H* ABG pO2 144.6 H ABG PO2/FiO2 Ratio 4.02 ABG HCO3 41.5 H ABG O2 Saturation 98.6 ABG O2 Content 15.2 L ABG Base Excess 12.7 A-a Gradient 18.5 Oxyhemoglobin 97.6 Carboxyhemoglobin 1.0 Reduced Hemoglobin 1.1 Total Hemoglobin 10.9 L O2 Delivery Device Nasal cannula O2 Liters/Min 4.0 FiO2 36 <Promise Miles PA-C - Last Filed: 05/14/25 19:12> 05/14/25 16:31 Puncture Site Left brachial ABG pH 7.329 L ABG pCO2 80.7 H* ABG pO2 144.6 H ABG PO2/FiO2 Ratio 4.02 ABG HCO3 41.5 H ABG O2 Saturation 98.6 ABG O2 Content 15.2 L ABG Base Excess 12.7 A-a Gradient 18.5 Oxyhemoglobin 97.6 Carboxyhemoglobin 1.0 Reduced Hemoglobin 1.1 Total Hemoglobin 10.9 L O2 Delivery Device Nasal cannula O2 Liters/Min 4.0 FiO2 36 <Jose Ritchie MD - Last Filed: 05/14/25 22:03> Attestation: I personally reviewed and interpreted this ABG as follows: <Promise Miles PA-C - Last Filed: 05/14/25 19:12> Imaging Data Attestation: I personally reviewed and interpreted this imaging study as follows: <KALEY Leone Last Filed: 05/14/25 19:12> Radiologist's impression: ITS Impressions Femur X-Ray 05/14/25 14:32 Impression: 1: Displaced right femoral intertrochanteric fracture with varus angulation. Hip/Pelvis X-Ray 05/14/25 14:32 Impression: 1: Displaced right femoral intertrochanteric fracture with varus angulation. Chest X-Ray 05/14/25 14:34 Impression: 1: No acute cardiopulmonary disease. <Promise Miles PA-C - Last Filed: 05/14/25 19:12> ECG Data EKG #1: Attestation: I personally reviewed and interpreted this ECG as follows: <KALEY Leone Last Filed: 05/14/25 19:12> ECG completion date: 05/14/25 <Promise Miles PA-C - Last Filed: 05/14/25 19:12> ECG completion time: 15:05 <KALEY Leone Last Filed: 05/14/25 19:12> EKG Interpretation: normal rate (80), sinus rhythm, PVCs and no ST changes <KALEY Leone Last Filed: 05/14/25 19:12> Discharge Plan Discharge Clinical Impression: Fall from ground level, Chronic respiratory failure with hypoxia and hypercapnia Closed intertrochanteric fracture of femur Qualifiers: Encounter type: initial encounter Fracture alignment: displaced Laterality: right Qualified Code(s): S72.141A - Displaced intertrochanteric fracture of right femur, initial encounter for closed fracture <KALEY Leone Last Filed: 05/14/25 19:12> Patient Disposition: Still a Patient <KALEY Leone Last Filed: 05/14/25 19:12> Condition: Stable <KALEY Leone Last Filed: 05/14/25 19:12>
[2025-05-14 15:12] LABS: Hematocrit 34.7 % (37.0-47.0); Hemoglobin 10.3 g/dL (12.0-15.0); Immature Granulocyte Percent A 0.4 % (0-0.5); Lymphocytes Absolute Auto 1.31 K/mm3 (0.9-3.2); Mean Corpuscular HGB Conc 29.7 g/dl (32-36); Mean Corpuscular Hemoglobin 28.7 pg (26-34); Mean Corpuscular Volume 96.7 fl (80-100); Nucleated Red Blood Cells Absolute Auto 0.000 K/mm3 (0.0-0.012); Nucleated Red Blood Cells Perc 0.0 % (0.0-0.2); Platelet Count Result 144 k/mm3 (150-375); Red Blood Count 3.59 M/mm3 (4.2-5.4); White Blood Count 9.1 K/mm3 (4.5-10.0)
[2025-05-14 15:33] LABS: INR 0.9; Partial Thromboplastin Time 25.8 Seconds (22.3-36.8); Prothrombin Time 12.1 Seconds (11.1-14.7)
[2025-05-14 15:35] LABS: Alanine Aminotransferase 19 U/L (6-35); Albumin Level 3.2 g/dL (3.5-5.1); Alkaline Phosphatase 75 U/L (38-126); Aspartate Amino Transferase 26 U/L (14-36); Bilirubin,Total 0.2 mg/dL (0.2-1.3); Blood Urea Nitrogen 15 mg/dL (7-17); Calcium 8.5 mg/dL (8.4-10.2); Chloride 94 mmol/L (98-107); Estimated Glomerular Filt Rate > 60; Glucose 99 mg/dL (65-110); Magnesium 1.9 mg/dL (1.6-2.3); Potassium 4.5 mmol/L (3.4-5.0); Sodium 138 mmol/L (137-145); Total Protein 6.1 g/dL (6.3-8.2)
[2025-05-14 15:36] LABS: Carbon Dioxide > 40 mmol/L (22-30)
[2025-05-14 15:42] LABS: Troponin I < 0.012 ng/mL (0.000-0.034)
[2025-05-14 16:07] LABS: Hypochromasia 1+; Schistocytes None Seen
[2025-05-14 16:36] LABS: Alveolar/Arterial O2 Gradient 18.5 mmHg; Carboxyhemoglobin 1.0 % THb (0-2.0); Fractional Inspired Oxygen 36 %; HCO3 ABG 41.5 mEq/l (22.0-26.0); Methemoglobin ABG 0.3 %THb (0-1.5); Oxygen Content ABG 15.2 %vol (16.0-22.0); Oxygen Saturation ABG 98.6 % (95.0-100.0); PO2 ABG 144.6 mmHg (80.0-100.0); PO2 FiO2 Ratio Arterial Blood 4.02 %; Reduced Hemoglobin 1.1 %THb (0-5.0)
[2025-05-14 16:40] VITALS: O2SAT 100
[2025-05-14 16:40] LABS: Liters per Minute 4.0 LPM; PCO2 ABG 80.7 mmHg (35.0-45.0); Site Drawn LEFT BRACHIAL
--- NOTE | 2025-05-14 16:54 | PC.NURSE ---
2 RN's attempted narvaez insertion as well as one PCT. No narvaez was able to be placed at this time.
[2025-05-14 17:00] VITALS: O2SAT 98
[2025-05-14] MEDS: HYDROcodone/acetaminophen (*CRX) 5-325 MG TABLET 1 TAB PO (17:05)
--- NOTE | 2025-05-14 17:11 | P.HP_ITS ---
H&P: HPI History of Present Illness Date/Time: 05/14/25 17:11 Chief Complaint: Fall with hip pain Narrative: 70-year-old female past medical history of severe COPD, CAD, hypertension, hyperlipidemia, home O2, history of NE with stent placement presents the hospital with hip pain after fall. She states that she got up in the middle the night go the bathroom when she fell landing on her right side. Patient states that she was unable to get up by herself the fall the fire department they had recommended that she go to the hospital she had refused at that time. They placed her on her couch which is where she spent all night. After house edema from his chemo appointment she let EMS taken to the hospital. Right lower extremity is shortened and externally rotated. Patient has not been able walk on it since the fall. Lab work shows anemia at 10.3 which is around baseline, ABG is 7.32 pCO2 80, PO2 144, bicarb 41.5, chloride 49 carbon dioxide over 40 creatinine 0.56, chest x- ray shows no acute process. Right femur x-ray shows displaced right femoral intertrochanteric fracture with varus angulation. EKG shows sinus rhythm with PVCs. Review of Systems Review of Systems: 12 systems were reviewed and are negativ e except for as per HPI. [facility] Past Medical History Medical History Post herpetic neuralgia Neck and shoulder pain Depression Essential (primary) hypertension Dependence on continuous supplemental oxygen Hx of myocardial infarction stent placement - Follows with Dr King [place] [facility] cardiology Lung nodule Osteoporosis HLD (hyperlipidemia) CAD (coronary artery disease) Chronic obstructive pulmonary disease Hypoxemia Former smoker Quit smoking in 2009, 30 pack years. Family History Family History Sibling Family history of cardiovascular disease Mother Family history of cardiovascular disease, Onset Age: 71 Family history of dementia, Onset Age: 71 Social History Social History Smoking packs per day: 1 Smoking cigarettes per day: 20.0 Years smoked: 30 Smoking pack-years: 30.00 Smoking status: Former smoker Second hand tobacco smoke exposure: Yes Alcohol intake: current Do You Feel Safe in your Home?: Yes Lack of Transportation: No Lack of Food: Never True Current Housing: I Have Housing Concerned About Future Housing: No Difficulty Paying Gas/Electric Bills: No Difficulty Paying for Meds: No Currently Unemployed: No Education: Associate Degree Difficulty w/ Childcare or Family Care: No Spiritual care concerns: No Meds Home Medications and Allergies Home Medications ?Medication ?Instructions ?Recorded ?Confirmed ?Type aspirin 81 mg tablet,delayed 81 mg PO DAILY 12/23/19 05/14/25 History release (Adult Aspirin Regimen) atorvastatin 80 mg tablet (Lipitor) 80 mg PO DAILY 12/23/19 05/14/25 History vitamin B complex (B 1 tablet PO DAILY 12/23/19 05/14/25 History Complex-Vitamin B12 tablet) carvedilol 12.5 mg tablet 6.25 mg PO Q12H 02/21/21 05/14/25 History bupropion HCl 300 mg 24 hr tablet, 300 mg PO QAM #90 tabs 06/15/24 05/14/25 Rx extended release levalbuterol HCl 1.25 mg/3 mL See Rx Instructions .Route 07/08/24 05/14/25 Rx solution for nebulization .COMPLEX #750 mL albuterol sulfate 90 mcg/actuation See Rx Instructions .Route 12/17/24 05/14/25 Rx aerosol inhaler .COMPLEX #25.5 grams Ohtuvayre 3 mg/2.5 mL suspension 2.5 ml inhalation QAM AND QPM #150 12/21/24 05/14/25 Rx for nebulization (ensifentrine) mL Breztri Aerosphere 160 2 inh inhalation QAM AND QPM #10.7 04/23/25 05/14/25 Rx mcg-9mcg-4.8mcg/actuation HFA grams aerosol inhaler (sbbwevjmmy-hsrxytny-ikwedxcwkz) hydrocodone 5 mg-acetaminophen 325 1 tablet PO BID PRN pain #40 tabs 05/03/25 05/14/25 Rx mg tablet ferrous sulfate 325 mg (65 mg 325 mg PO DAILY #90 tabs 05/07/25 05/14/25 Rx iron) tablet Allergies Allergy/AdvReac Type Severity Reaction Status Date / Time No Known Allergies Allergy Verified 05/14/25 13:48 Vital Signs Vital Signs - 24 hr 05/14/25 13:37 Temperature 98.3 F Pulse Rate 81 Respiratory Rate 18 Blood Pressure 149/60 H Pulse Oximetry 100 Oxygen Delivery Nasal Cannula Oxygen Flow Rate 4 Exam Narrative: General: No distress noted, cachectic HEENT: normocephalic, atraumatic. Mucous membranes moist. EOMI, PERRLA, bilateral sclera anicteric, no conjunctival injection. Neck supple without JVD, lymphadenopathy, or bruit. Respiratory: clear to ascultation bilaterally. No rales/rhonic/wheezes. Cardiovascular: Regular rate and rhythm, normal S1-S2 upon ascultation. No murmurs, rubs, or clicks. PMI is nondisplaced, capillary refill less than 3 second. Abdomen: Soft, round, no pulsatile masses, nondistended and nontender. No rebound, no guarding. No CVA tenderness, no hepatosplenomegaly. Bowel sounds present to all four quadrants. No high pitch or tinkling sounds, resonant to percussion. Extremities: No cyanosis, clubbing, or edema present. Pulses are palpable 2/2. Right lower extremity shortened and externally rotated limited range of motion Neuro: Alert and orientated x 4. PERRLA. Cranial nerves 2-12 intact without focal deficit. Skin: Warm, dry, and intact, without rash, erythema, or lesion. Psych: pleasant, cooperative, normal speech, normal affect, no hallucinations, no dysarthia H&P: Results Labs Labs: Short CBC 05/14/25 Range/Units 14:59 WBC 9.1 (4.5-10.0) K/mm3 Hgb 10.3 L (12.0-15.0) g/dL Hct 34.7 L (37.0-47.0) % Plt Count 144 L (150-375) k/mm3 BMP 05/14/25 14:59 Sodium 138 Potassium 4.5 Chloride 94 L Carbon Dioxide > 40 H BUN 15 Creatinine 0.56 L Glucose 99 Calcium 8.5 Cardiac Enzymes 05/14/25 05/14/25 Range/Units 14:59 14:59 Troponin I < 0.012 Cancelled (0.000-0.034) ng/mL Liver Function 05/14/25 Range/Units 14:59 Total Bilirubin 0.2 (0.2-1.3) mg/dL AST 26 (14-36) U/L ALT 19 (6-35) U/L Alkaline Phosphatase 75 (38-126) U/L Albumin 3.2 L (3.5-5.1) g/dL Assessment and Plan Assessment and plan (1) Fall from ground level: Code(s): W18.30XA - Fall on same level, unspecified, initial encounter Status: Acute Assessment and Plan: PT and OT after surgery Urine is negative for infection (2) Closed intertrochanteric fracture of femur: Qualifiers: Encounter type: initial encounter Fracture alignment: displaced Laterality: right Qualified Code(s): S72.141A - Displaced intertrochanteric fracture of right femur, initial encounter for closed fracture Code(s): S72.143A - Displaced intertrochanteric fracture of unspecified femur, initial encounter for closed fracture Status: Acute Assessment and Plan: Orthopedics consulted Plan for OR tomorrow morning NPO status with meds Pain management bowel protocol (3) CAD (coronary artery disease): Qualifiers: Associated angina: without angina Coronary Disease-Associated Artery/Lesion type: unspecified vessel or lesion type [place] vs. transplanted heart: [place] heart Qualified Code(s): I25.10 - Atherosclerotic heart disease of [place] coronary artery without angina pectoris Code(s): I25.10 - Atherosclerotic heart disease of [place] coronary artery without angina pectoris Status: Acute Assessment and Plan: Continue aspirin, Lipitor, and Coreg Telemetry monitoring (4) Chronic hypoxic respiratory failure, on home oxygen therapy: Code(s): J96.11 - Chronic respiratory failure with hypoxia; Z99.81 - Dependence on supplemental oxygen Assessment and Plan: ABG shows the patient is compensated however she is also over oxygen needed will decrease home O2 from 4 L to 2 L Home meds restarted (5) Depression: Qualifiers: Depression Type: unspecified Qualified Code(s): F32.9 - Major depressive disorder, single episode, unspecified Code(s): F32.9 - Major depressive disorder, single episode, unspecified Status: Acute Assessment and Plan: Continue Wellbutrin Quality VTE Prophylaxis VTE prophylaxis: mechanical ordered Hospitalist MIPS Advance Care Plan I have confirmed that the patient's Advanced Care Plan is present, code status is documented, or surrogate decision maker is listed in patient medical record.: Yes Medication Reconciliation I have utilized all available resources to obtain, update and review the patients current medications (includes all prescriptions, OTC, herbals, cannabis, and nutritional supplements).: Yes
[2025-05-14 18:37] VITALS: BMI 18.1
[2025-05-14 19:38] VITALS: BP 133/61; PULSE 80; RESP 18; TEMP 36.5; O2SAT 100
[2025-05-14 20:00] VITALS: PULSE 90; O2SAT 95
--- NOTE | 2025-05-14 20:21 | PM.CNOR ---
Assessment and Plan Assessment and plan (1) Closed intertrochanteric fracture of femur: Qualifiers: Encounter type: initial encounter Fracture alignment: displaced Laterality: right Qualified Code(s): S72.141A - Displaced intertrochanteric fracture of right femur, initial encounter for closed fracture Code(s): S72.143A - Displaced intertrochanteric fracture of unspecified femur, initial encounter for closed fracture Status: Acute Plan Displaced intertrochanteric fracture. Increased risk due to COPD. I reviewed the proposed procedure. Risks, benefits, and alternatives discussed. Proceed with ORIF right hip with IM nail. History of Present Illness HPI Consult date: 05/14/25 Chief complaint: R Intertrochanteric Femur F/Chronic Hypoxic/Hyperc Narrative: Patient complains of acute hip pain. Fell from standing height. Admitted through the emergency room for definitive management. No previous hip pain. Comfortable at rest. No numbness, tingling, or other associated symptoms. COPD with chronic 4L O2 at home. Review of Systems Review of Systems: Denies loss of consciousness. All systems reviewed & are unremarkable except as noted in HPI and below PMFSH Past Medical History Medical History Post herpetic neuralgia Neck and shoulder pain Depression Essential (primary) hypertension Dependence on continuous supplemental oxygen Hx of myocardial infarction stent placement - Follows with Dr King [place] [facility] cardiology Lung nodule Osteoporosis HLD (hyperlipidemia) CAD (coronary artery disease) Chronic obstructive pulmonary disease Hypoxemia Former smoker Quit smoking in 2009, 30 pack years. Family History Family History Sibling Family history of cardiovascular disease Mother Family history of cardiovascular disease, Onset Age: 71 Family history of dementia, Onset Age: 71 Social History Social History Smoking packs per day: 1 Smoking cigarettes per day: 20.0 Years smoked: 30 Smoking pack-years: 30.00 Smoking status: Former smoker Second hand tobacco smoke exposure: Yes Alcohol intake: current Do You Feel Safe in your Home?: Yes Lack of Transportation: No Lack of Food: Never True Current Housing: I Have Housing Concerned About Future Housing: No Difficulty Paying Gas/Electric Bills: No Difficulty Paying for Meds: No Currently Unemployed: No Education: Associate Degree Difficulty w/ Childcare or Family Care: No Spiritual care concerns: No Meds Home Medications and Allergies Home Medications ?Medication ?Instructions ?Recorded ?Confirmed ?Type aspirin 81 mg tablet,delayed 81 mg PO DAILY 12/23/19 05/14/25 History release (Adult Aspirin Regimen) atorvastatin 80 mg tablet (Lipitor) 80 mg PO DAILY 12/23/19 05/14/25 History vitamin B complex (B 1 tablet PO DAILY 12/23/19 05/14/25 History Complex-Vitamin B12 tablet) carvedilol 12.5 mg tablet 6.25 mg PO Q12H 02/21/21 05/14/25 History bupropion HCl 300 mg 24 hr tablet, 300 mg PO QAM #90 tabs 06/15/24 05/14/25 Rx extended release levalbuterol HCl 1.25 mg/3 mL See Rx Instructions .Route 07/08/24 05/14/25 Rx solution for nebulization .COMPLEX #750 mL albuterol sulfate 90 mcg/actuation See Rx Instructions .Route 12/17/24 05/14/25 Rx aerosol inhaler .COMPLEX #25.5 grams Ohtuvayre 3 mg/2.5 mL suspension 2.5 ml inhalation QAM AND QPM #150 12/21/24 05/14/25 Rx for nebulization (ensifentrine) mL Breztri Aerosphere 160 2 inh inhalation QAM AND QPM #10.7 04/23/25 05/14/25 Rx mcg-9mcg-4.8mcg/actuation HFA grams aerosol inhaler (dgnjfxzcsw-gpqaaeze-pshdgogyvb) hydrocodone 5 mg-acetaminophen 325 1 tablet PO BID PRN pain #40 tabs 05/03/25 05/14/25 Rx mg tablet ferrous sulfate 325 mg (65 mg 325 mg PO DAILY #90 tabs 05/07/25 05/14/25 Rx iron) tablet Allergies Allergy/AdvReac Type Severity Reaction Status Date / Time No Known Allergies Allergy Verified 05/14/25 13:48 Vital Signs Vital Signs - 24 hr 05/14/25 13:37 05/14/25 16:40 05/14/25 17:00 Temperature 36.8 C Pulse Rate 81 Respiratory Rate 18 Blood Pressure 149/60 H Pulse Oximetry 100 100 98 Oxygen Delivery Nasal Cannula Nasal Cannula Nasal Cannula Oxygen Flow Rate 4 4 3 05/14/25 19:38 Temperature 36.5 C Pulse Rate 80 Respiratory Rate 18 Blood Pressure 133/61 Pulse Oximetry 100 Oxygen Delivery Oxygen Flow Rate Exam Narrative: Lower extremity shortened and externally rotated. Const: General: no acute distress Eyes: General: appearance normal, both eyes and all related structures GI: GI Palp: Yes Soft to palpation and No Guarding due to palpation present (GI) Urinary Catheter: Urinary Catheter: patent and draining and urine clear Skin: General skin exam: no rashes or lesions noted Neuro: Speech: normal speech Other: Wiggles toes well. Capillary refill brisk. Distal light touch sensation intact. Dorsalis pedis pulse palpable. Extrem: Other: No edema. Psych: Mental Status: mental status grossly normal Results Labs 05/14/25 14:59 05/14/25 14:59 Labs: Abnormal lab results 05/14/25 05/14/25 Range/Units 14:59 16:31 RBC 3.59 L (4.2-5.4) M/mm3 Hgb 10.3 L (12.0-15.0) g/dL Hct 34.7 L (37.0-47.0) % MCHC 29.7 L (32-36) g/dl Plt Count 144 L (150-375) k/mm3 MPV 11.2 H (7.4-10.4) fl Neut % (Auto) 75.5 H (45.5-73.1) % Lymph % (Auto) 14.4 L (18.3-44.2) % [place] % (Auto) 9.5 H (2.6-8.5) % Baso % (Auto) 0.1 L (0.2-1.2) % [place] # (Auto) 0.9 H (0.1-0.6) K/mm3 Abs Immat Gran (auto) 0.04 H (0.00-0.031) K/mm3 Absolute Neuts (auto) 6.9 H (1.3-6.7) K/mm3 ABG pH 7.329 L (7.350-7.450) ABG pCO2 80.7 H* (35.0-45.0) mmHg ABG pO2 144.6 H (80.0-100.0) mmHg ABG HCO3 41.5 H (22.0-26.0) mEq/l ABG O2 Content 15.2 L (16.0-22.0) %vol Total Hemoglobin 10.9 L (12.0-18.0) g/dL Chloride 94 L (98-107) mmol/L Carbon Dioxide > 40 H (22-30) mmol/L Creatinine 0.56 L (0.7-1.0) mg/dL Total Protein 6.1 L (6.3-8.2) g/dL Albumin 3.2 L (3.5-5.1) g/dL H & H 05/14/25 Range/Units 14:59 Hgb 10.3 L (12.0-15.0) g/dL Hct 34.7 L (37.0-47.0) % Coagulation 05/14/25 Range/Units 14:59 INR 0.9 All other labs normal. Quality VTE Prophylaxis VTE prophylaxis: mechanical ordered
[2025-05-14] MEDS: KETOROLAC 15 MG/ML VIAL (*BKC) IV PUSH (20:33)
[2025-05-14 20:56] VITALS: O2SAT 98
[2025-05-14 22:20] LABS: Add Urine Microscopic? YES; Appearance Urine Clear (Clear); Glucose Urine UA Negative (Negative); Leukocyte Esterase Ur Negative LEU/UL (Negative); Need Manual Microscopic Reviewed; Nitrate Urine Negative (Negative); Non Pathogenic Casts 0-2; Specific Grav Ur 1.021 (1.001-1.035)
[2025-05-15] VITALS (18 sets, daily range): BP systolic 111–155; BP diastolic 58–98; PULSE 70–109; RESP 12–18; TEMP 36.2–36.7; O2SAT 95–100
[2025-05-15] MEDS: ACETAMINOPHEN 325 MG TABLET 650 MG PO ×2 (02:05→13:03)
--- NOTE | 2025-05-15 08:15 | WPDHPUPDATE1 ---
History and Physical Update Update Date/Time: 05/15/25 08:15 History and Physical has been reviewed, including an updated exam of the patient. There are NO changes in the patient's condition. Risks, benefits, and alternatives have been discussed and questions answered. Patient agrees to proceed with procedure.
--- NOTE | 2025-05-15 09:04 | P.PNAN_ITS ---
Anes - Initial Pre Proc Eval Procedure: Operation Date: 05/15/25 08:00 Proposed Procedures p Right Intertrochanteric Nail - Hermilo Burch MD Date/Time: 05/15/25 09:04 Surgeon: Dior Woodruff MD Pre Op Diagnosis: R Intertrochanteric Femur F/Chronic Hypoxic/Hyperc Patient Data Age: 70 Gender: F Height: 1.57 m Weight: 45 kg Last Vital Signs Temp 36.5 C 05/15/25 05:08 Pulse 79 05/15/25 05:08 Resp 16 05/15/25 05:08 BP 111/58 L 05/15/25 05:08 Pulse Ox 100 05/15/25 05:08 O2 Del Method Nasal Cannula 05/14/25 20:56 O2 Flow Rate 3 05/14/25 20:56 Allergies Allergy/AdvReac Type Severity Reaction Status Date / Time No Known Allergies Allergy Verified 05/14/25 13:48 Home Medications ?Medication ?Instructions ?Recorded ?Confirmed ?Type aspirin 81 mg tablet,delayed 81 mg PO DAILY 12/23/19 05/14/25 History release (Adult Aspirin Regimen) atorvastatin 80 mg tablet (Lipitor) 80 mg PO DAILY 12/23/19 05/14/25 History vitamin B complex (B 1 tablet PO DAILY 12/23/19 05/14/25 History Complex-Vitamin B12 tablet) carvedilol 12.5 mg tablet 6.25 mg PO Q12H 02/21/21 05/14/25 History bupropion HCl 300 mg 24 hr tablet, 300 mg PO QAM #90 tabs 06/15/24 05/14/25 Rx extended release levalbuterol HCl 1.25 mg/3 mL See Rx Instructions .Route 07/08/24 05/14/25 Rx solution for nebulization .COMPLEX #750 mL albuterol sulfate 90 mcg/actuation See Rx Instructions .Route 12/17/24 05/14/25 Rx aerosol inhaler .COMPLEX #25.5 grams Ohtuvayre 3 mg/2.5 mL suspension 2.5 ml inhalation QAM AND QPM #150 12/21/24 05/14/25 Rx for nebulization (ensifentrine) mL Breztri Aerosphere 160 2 inh inhalation QAM AND QPM #10.7 04/23/25 05/14/25 Rx mcg-9mcg-4.8mcg/actuation HFA grams aerosol inhaler (jsxnrlfvwm-wqaaexmi-cwmkrxnzom) hydrocodone 5 mg-acetaminophen 325 1 tablet PO BID PRN pain #40 tabs 05/03/25 05/14/25 Rx mg tablet ferrous sulfate 325 mg (65 mg 325 mg PO DAILY #90 tabs 05/07/25 05/14/25 Rx iron) tablet Laboratory Tests 05/14/25 05/14/25 05/14/25 14:59 14:59 14:59 WBC 9.1 K/mm3 (4.5-10.0) RBC 3.59 L M/mm3 (4.2-5.4) Hgb 10.3 L g/dL (12.0-15.0) Hct 34.7 L % (37.0-47.0) MCV 96.7 fl (80-100) MCH 28.7 pg (26-34) MCHC 29.7 L g/dl (32-36) RDW 14.1 % (11.5-14.5) Plt Count 144 L k/mm3 (150-375) MPV 11.2 H fl (7.4-10.4) Immature Gran % (Auto) 0.4 % (0-0.5) Neut % (Auto) 75.5 H % (45.5-73.1) Lymph % (Auto) 14.4 L % (18.3-44.2) [place] % (Auto) 9.5 H % (2.6-8.5) Eos % (Auto) 0.1 % (0-4.4) Baso % (Auto) 0.1 L % (0.2-1.2) Lymph # (Auto) 1.31 K/mm3 (0.9-3.2) [place] # (Auto) 0.9 H K/mm3 (0.1-0.6) Eos # (Auto) 0.0 K/mm3 (0-0.3) Baso # (Auto) 0.0 K/mm3 (0.0-0.1) Abs Immat Gran (auto) 0.04 H K/mm3 (0.00-0.031) Absolute Neuts (auto) 6.9 H K/mm3 (1.3-6.7) Absolute Nucleated RBC 0.000 K/mm3 (0.0-0.012) Band Neutrophils % Not Reportable Nucleated RBC % 0.0 % (0.0-0.2) Platelet Estimate Decreased (Adequate) Hypochromasia 1+ Schistocytes None seen PT 12.1 Seconds (11.1-14.7) INR 0.9 APTT 25.8 Seconds (22.3-36.8) Puncture Site ABG pH ABG pCO2 ABG pO2 ABG PO2/FiO2 Ratio ABG HCO3 ABG O2 Saturation ABG O2 Content ABG Base Excess A-a Gradient Oxyhemoglobin Carboxyhemoglobin Methemoglobin Reduced Hemoglobin Total Hemoglobin O2 Delivery Device O2 Liters/Min FiO2 Sodium 138 mmol/L (137-145) Potassium 4.5 mmol/L (3.4-5.0) Chloride 94 L mmol/L (98-107) Carbon Dioxide > 40 H mmol/L (22-30) Anion Gap mmol/L (4-12) BUN 15 mg/dL (7-17) Creatinine 0.56 L mg/dL (0.7-1.0) Estim Creat Clear Calc Not Reportable Estimated GFR > 60 (59 - ) Glucose 99 mg/dL (65-110) Calcium 8.5 mg/dL (8.4-10.2) Magnesium 1.9 mg/dL Cancelled (1.6-2.3) Total Bilirubin 0.2 mg/dL (0.2-1.3) AST 26 U/L (14-36) ALT 19 U/L (6-35) Alkaline Phosphatase 75 U/L (38-126) Troponin I < 0.012 ng/mL Cancelled (0.000-0.034) Total Protein 6.1 L g/dL (6.3-8.2) Albumin 3.2 L g/dL (3.5-5.1) Urine Color Urine Appearance Urine pH Ur Specific [place] Urine Protein Urine Glucose (UA) Urine Ketones Ur Blood (Man) Urine Nitrate Urine Bilirubin Urine Urobilinogen Add Ur Microanalysis Leukocyte Esterase Rfl Urine RBC Urine WBC Ur Squamous Epith Cells Urine Bacteria Urine Casts Urine Mucus Blood Type Antibody Screen 05/14/25 05/14/25 05/14/25 16:31 20:44 22:02 WBC RBC Hgb Hct MCV MCH MCHC RDW Plt Count MPV Immature Gran % (Auto) Neut % (Auto) Lymph % (Auto) [place] % (Auto) Eos % (Auto) Baso % (Auto) Lymph # (Auto) [place] # (Auto) Eos # (Auto) Baso # (Auto) Abs Immat Gran (auto) Absolute Neuts (auto) Absolute Nucleated RBC Band Neutrophils % Nucleated RBC % Platelet Estimate Hypochromasia Schistocytes PT INR APTT Puncture Site Left brachial ABG pH 7.329 L (7.350-7.450) ABG pCO2 80.7 H* mmHg (35.0-45.0) ABG pO2 144.6 H mmHg (80.0-100.0) ABG PO2/FiO2 Ratio 4.02 % ABG HCO3 41.5 H mEq/l (22.0-26.0) ABG O2 Saturation 98.6 % (95.0-100.0) ABG O2 Content 15.2 L %vol (16.0-22.0) ABG Base Excess 12.7 mEq/l (+/-2.0) A-a Gradient 18.5 mmHg Oxyhemoglobin 97.6 % THb (90.0-100.0) Carboxyhemoglobin 1.0 % THb (0-2.0) Methemoglobin 0.3 %THb (0-1.5) Reduced Hemoglobin 1.1 %THb (0-5.0) Total Hemoglobin 10.9 L g/dL (12.0-18.0) O2 Delivery Device Nasal cannula O2 Liters/Min 4.0 LPM FiO2 36 % Sodium Potassium Chloride Carbon Dioxide Anion Gap BUN Creatinine Estim Creat Clear Calc Estimated GFR Glucose Calcium Magnesium Total Bilirubin AST ALT Alkaline Phosphatase Troponin I Total Protein Albumin Urine Color Yellow (Yellow) Urine Appearance Clear (Clear) Urine pH 6.5 (5.0-9.0) Ur Specific [place] 1.021 (1.001-1.035) Urine Protein Trace mg/dL (Negative) Urine Glucose (UA) Negative mg/dL (Negative) Urine Ketones 1+ H mg/dL (Negative) Ur Blood (Man) Negative (Negative) Urine Nitrate Negative (Negative) Urine Bilirubin Negative (Negative) Urine Urobilinogen 1.0 mg/dL (<2.0) Add Ur Microanalysis Reviewed Leukocyte Esterase Rfl Negative AIDEN/UL (Negative) Urine RBC 0-2 /hpf (0-2) Urine WBC 0-5 /hpf (0-3) Ur Squamous Epith Cells None seen /hpf (Few) Urine Bacteria None seen /hpf Urine Casts 0-2 Urine Mucus Present /lpf Blood Type A Positive Antibody Screen Negative Patient hx anesthesia problems: none Family hx anesthesia problems: none Results Review: All pre-operative results and documents have been reviewed as part of the pre-op erative evaluation. [facility] Past Medical History Medical History Post herpetic neuralgia Neck and shoulder pain Depression Essential (primary) hypertension Dependence on continuous supplemental oxygen Hx of myocardial infarction stent placement - Follows with Dr King [place] CRUZ cardiology Lung nodule Osteoporosis HLD (hyperlipidemia) CAD (coronary artery disease) Chronic obstructive pulmonary disease Hypoxemia Former smoker Quit smoking in 2009, 30 pack years. Family History Family History Sibling Family history of cardiovascular disease Mother Family history of cardiovascular disease, Onset Age: 71 Family history of dementia, Onset Age: 71 Social History Social History Smoking packs per day: 1 Smoking cigarettes per day: 20.0 Years smoked: 30 Smoking pack-years: 30.00 Smoking status: Former smoker Second hand tobacco smoke exposure: Yes Alcohol intake: current Do You Feel Safe in your Home?: Yes Lack of Transportation: No Lack of Food: Never True Current Housing: I Have Housing Concerned About Future Housing: No Difficulty Paying Gas/Electric Bills: No Difficulty Paying for Meds: No Currently Unemployed: No Education: Associate Degree Difficulty w/ Childcare or Family Care: No Spiritual care concerns: No Anes - Eval Final PreProcedure Day of Procedure 05/15/25 09:04 Patient weight: cachectic Heart: regular rate and rhythm Lungs: clear to auscultation Airway: Mallampati scale class II Neurological: alert and oriented Last oral intake: >/= 8 hours ASA classification: IV Emergent: no Anesthetic plan: proceed Anesthesia type and monitoring: general LMA and standard monitoring Results Review: All pre-operative results and documents have been reviewed as part of the pre- operative evaluation. Informed Consent: The patient's anesthetic plan and its attendant risks and benefits were discussed with the patient/family/POA. Questions were solicited and answers provided to the satisfaction of the patient/family/POA.
[2025-05-15] MEDS: BUPIVACAINE/EPINEPHRINE 0.5% 50 ML VIAL 30 ML INFILTRATE (10:29)
--- NOTE | 2025-05-15 11:05 | W.PM.PROC2 ---
Procedure Note - Detailed Date of Procedure 05/15/25 Pre-op Diagnosis Right Displaced intertrochanteric hip fracture Post-op Diagnosis Same Procedure Performed ORIF femur intertrochanteric fracture with cephalomedullary nail, right. Surgeon Hermilo Burch MD Anesthesia General Description of Procedure The patient was given a general anesthetic, then carefully placed in fracture table. Sterile prep and drape performed in the usual fashion. Sterile curtain was used. Gentle traction was utilized to reduce the fracture. Fluoroscopy was used to confirm anatomic reduction and a proper placement of the implants. A longitudinal incision was created at the tip of the trochanter. The deep fascia was incised. The cannulated awl was used to open the proximal femur. The guidewire was placed across the fracture. The reamer was used to open the canal. The nail was placed across the fracture site. A separate incision was made for placement of the cannulated guide sleeve. The guide pin was placed in the center of the femoral head. Appropriate measurement was taken. The pin was over reamed. The screw was placed with excellent purchase. The mid-shaft locking screw was placed through the jig. The jig was removed. The wounds were irrigated and closed. The deep fascia was closed with #1 Vicryl suture followed by 2-0 Vicryl suture and pranay. Sterile dressing was applied. The patient was transferred to the recovery room in stable condition. There were no complications. Implants Arthrex hip short trochanteric fracture nail 10 x 380 mm. 130?. 80 mm lag screw. 32 mm locking screw. Estimated Blood Loss 50 Drains No Packing No Pathology None sent Complications No immediate complications Condition Stable Disposition PACU [facility] Billing Surgery - Charge Forward: Surgery Billing
[2025-05-15] MEDS: LACTATED RINGERS 1,000 ML 30 ML IV CONT (11:14)
[2025-05-15] MEDS: buPROPion HCL XL (24 HR) 150 MG TABCR 300 MG PO (13:01)
[2025-05-15] MEDS: FERROUS SULFATE 325 MG TABLET DR PO (13:03)
--- NOTE | 2025-05-15 15:47 | P.PNIM_ITS ---
Progress Note: A&P Assessment and Plan (1) Fall from ground level: Code(s): W18.30XA - Fall on same level, unspecified, initial encounter Status: Acute Assessment and Plan: PT and OT after surgery Urine is negative for infection (2) Closed intertrochanteric fracture of femur: Qualifiers: Encounter type: initial encounter Fracture alignment: displaced Laterality: right Qualified Code(s): S72.141A - Displaced intertrochanteric fracture of right femur, initial encounter for closed fracture Code(s): S72.143A - Displaced intertrochanteric fracture of unspecified femur, initial encounter for closed fracture Status: Acute Assessment and Plan: Orthopedics consulted Plan for OR tomorrow morning NPO status with meds Pain management bowel protocol (3) CAD (coronary artery disease): Qualifiers: Coronary Disease-Associated Artery/Lesion type: unspecified vessel or lesion type [place] vs. transplanted heart: [place] heart Associated angina: without angina Qualified Code(s): I25.10 - Atherosclerotic heart disease of [place] coronary artery without angina pectoris Code(s): I25.10 - Atherosclerotic heart disease of [place] coronary artery without angina pectoris Status: Acute Assessment and Plan: Continue aspirin, Lipitor, and Coreg Telemetry monitoring (4) Chronic hypoxic respiratory failure, on home oxygen therapy: Code(s): J96.11 - Chronic respiratory failure with hypoxia; Z99.81 - Dependence on supplemental oxygen Assessment and Plan: ABG shows the patient is compensated however she is also over oxygen needed will decrease home O2 from 4 L to 2 L Home meds restarted (5) Depression: Qualifiers: Depression Type: unspecified Qualified Code(s): F32.9 - Major depressive disorder, single episode, unspecified Code(s): F32.9 - Major depressive disorder, single episode, unspecified Status: Acute Assessment and Plan: Continue Wellbutrin Plan patient with fall, x-ray showed displaced right femoral intertrochanteric fracture with varus angulation. patient was seen by Dr. Burch, an orthopedic surgeon, and patient had ORIF today, patient stats feels much better compared to when she arrived, currently sitting in the chair, did participate with PT, will monitor and have healthcare business analyst arrange for rehab. Subjective Date/time seen: 05/15/25 15:47 Interval history: Fall with hip pain H&P-Narrative: 70-year-old female past medical history of severe COPD, CAD, hypertension, hyperlipidemia, home O2, history of NV with stent placement presents the hospital with hip pain after fall. She states that she got up in the middle the night go the bathroom when she fell landing on her right side. Patient states that she was unable to get up by herself the fall the fire department they had recommended that she go to the hospital she had refused at that time. They plac ed her on her couch which is where she spent all night. After house edema from his chemo appointment she let EMS taken to the hospital. Right lower extremity is shortened and externally rotated. Patient has not been able walk on it since the fall. Lab work shows anemia at 10.3 which is around baseline, ABG is 7.32 pCO2 80, PO2 144, bicarb 41.5, chloride 49 carbon dioxide over 40 creatinine 0.56, chest x- ray shows no acute process. Right femur x-ray shows displaced right femoral intertrochanteric fracture with varus angulation. EKG shows sinus rhythm with PVCs. patient with fall, x-ray showed displaced right femoral intertrochanteric fracture with varus angulation. patient was seen by Dr. Burch, an orthopedic surgeon, and patient had ORIF today, patient stats feels much better compared to when she arrived, currently sitting in the chair, did participate with PT, will monitor and have healthcare business analyst arrange for rehab. Review of Systems Review of Systems: Denies loss of consciousness. All systems reviewed & are unremarkable except as noted in HPI and below Exam Narrative: Patient is comfortable, NAD HEENT: eyes are clear and none icteric LUNGS:CTA HEART: RR S1S2 ABD: BS+, Soft and nontender Lower extremities: no edema SKIN: nonjaundiced Neuro: grossly intact. Objective Data Vital Signs Vital Signs: Vital Signs - 24 hr 05/14/25 16:40 05/14/25 17:00 05/14/25 19:38 Temperature 36.5 C Pulse Rate 80 Respiratory Rate 18 Blood Pressure 133/61 Pulse Oximetry 100 98 100 Oxygen Delivery Nasal Cannula Nasal Cannula Oxygen Flow Rate 4 3 05/14/25 20:00 05/14/25 20:00 05/14/25 20:56 Temperature Pulse Rate 90 Respiratory Rate Blood Pressure Pulse Oximetry 95 98 Oxygen Delivery Nasal Cannula Nasal Cannula Oxygen Flow Rate 4 3 05/15/25 00:00 05/15/25 04:00 05/15/25 05:08 Temperature 36.5 C Pulse Rate 78 83 79 Respiratory Rate 16 Blood Pressure 111/58 L Pulse Oximetry 100 Oxygen Delivery Oxygen Flow Rate 05/15/25 08:00 05/15/25 11:14 05/15/25 11:25 Temperature 36.3 C L Pulse Rate 82 73 73 Respiratory Rate 12 16 Blood Pressure 140/63 145/64 H Pulse Oximetry 100 95 Oxygen Delivery Room Air Nasal Cannula Oxygen Flow Rate 4 05/15/25 11:40 05/15/25 11:55 05/15/25 12:10 Temperature Pulse Rate 72 70 71 Respiratory Rate 16 14 18 Blood Pressure 150/60 H 144/98 H 144/98 H Pulse Oximetry 100 100 100 Oxygen Delivery Nasal Cannula Nasal Cannula Nasal Cannula Oxygen Flow Rate 4 4 4 05/15/25 12:19 05/15/25 12:37 05/15/25 12:53 Temperature 36.2 C L 36.2 C L 36.3 C L Pulse Rate 72 80 82 Respiratory Rate 16 16 18 Blood Pressure 143/66 H 147/69 H 155/72 H Pulse Oximetry 100 98 99 Oxygen Delivery Nasal Cannula Oxygen Flow Rate 4 05/15/25 13:02 05/15/25 13:25 05/15/25 13:49 Temperature Pulse Rate 82 Respiratory Rate Blood Pressure Pulse Oximetry Oxygen Delivery Nasal Cannula Nasal Cannula Oxygen Flow Rate 4 4 Intake/Output Intake/Output: Intake & Output 05/12/25 05/13/25 05/14/25 05/15/25 23:59 23:59 23:59 23:59 Intake Total 290 Output Total 200 Balance 90 Meds/Results Medications: Active Medications Generic Name Dose Route Start Last Admin Trade Name Freq PRN Reason Stop Dose Admin Acetaminophen 650 mg 05/15/25 02:00 05/15/25 13:03 Acetaminophen 325 Mg Tablet PO 650 mg Q12H PRASANTH Administration Hydrocodone Bitart/Acetaminophen 1 tab 05/14/25 16:52 05/14/25 17:05 Hydrocodone/Acetaminophen (*Crx) 5-325 Mg Tablet PO 1 tab Q4H PRN Administration Pain Rated 4-6 Albuterol 0 puff 05/14/25 20:05 Albuterol Sulfate (*Sp) Aerosol 1 Puff INHALATION Q6H PRN Wheezing Aspirin 81 mg 05/15/25 09:00 05/15/25 13:08 Aspirin 81 Mg Enteric Tablet PO Not Given DAILY PRASANTH Atorvastatin Calcium 80 mg 05/15/25 21:00 Atorvastatin 40 Mg Tablet PO HS PRASANTH Bupropion HCl 300 mg 05/15/25 09:00 05/15/25 13:01 Bupropion Hcl Xl (24 Hr) 150 Mg Tabcr PO 300 mg QAM PRASANTH Administration Carvedilol 6.25 mg 05/14/25 21:00 05/15/25 13:02 Carvedilol 6.25 Mg Tablet PO 6.25 mg Q12H PRASANTH Administration Dextrose 12.5 gm 05/14/25 16:56 Dextrose 50% 25 Gm/50 Ml Syringe IV PUSH PRN PRN Hypoglycemia Protocol Fentanyl Citrate 25 mcg 05/15/25 10:41 Fentanyl Citrate Inj (*Crx) 100 Mcg/2 Ml Vial IV PUSH Q2M PRN Pain Ferrous Sulfate 325 mg 05/15/25 09:00 05/15/25 13:03 Ferrous Sulfate [address] PO 325 mg DAILY PRASANTH Administration Glucagon 1 mg 05/14/25 16:56 Glucagon For Inj 1 Mg Vial IM PRN PRN Hypoglycemia Protocol Glucose 15 gm 05/14/25 16:56 Glucose Oral Gel 15 Gm Of Glucse In 37.5 Gm Tube PO PRN PRN Hypoglycemia Protocol Dextrose 1,000 mls @ 100 mls/hr 05/14/25 16:56 Dextrose 5% 1,000 Ml IVPB PRN PRN Hypoglycemia Protocol Lactated Ringer's 1,000 mls @ 30 mls/hr 05/15/25 07:00 05/15/25 13:03 Lr - Lactated Ringers Iv IV CONT Not Given .Q24H PRASANTH Lactated Ringer's 1,000 mls @ 30 mls/hr 05/15/25 10:45 05/15/25 12:12 Lr - Lactated Ringers Iv IV CONT Infused .Q24H PRASANTH Infusion Cefazolin Sodium 1 gm/ Sodium 50 mls @ 100 mls/hr 05/15/25 18:00 Chloride IVPB 05/16/25 10:29 Q8H PRASANTH Ketorolac Tromethamine 15 mg 05/15/25 08:00 05/15/25 12:55 Ketorolac 15 Mg/Ml Vial (*Bkc) IV PUSH Not Given Q12H PRASANTH Levalbuterol HCl 1.25 mg 05/15/25 00:00 Levalbuterol Neb 1.25 Mg/3 Ml INHALATION Q8HRT PRN SHORTNESS OF BREATH/WHEEZING Miscellaneous Information 1 each 05/15/25 00:01 Please Send Home Med Breztri Inhaler To Pharmacy For Verification When Available XX 06/14/25 00:00 CLARIFY PRASANTH Miscellaneous Information 1 each 05/15/25 00:01 [place]/Oxycodone Duplicate Pain Scales XX 06/14/25 00:00 CLARIFY [facility] Miscellaneous Information 1 each 05/14/25 00:01 Please Send Levalbuterol Neb 1.25 Mg/3 Ml To Pharmacy For Verification If Using From Home XX 06/13/25 00:00 CLARIFY [facility] Miscellaneous Information 1 each 05/14/25 00:01 Ensifentrine [Ohtuvayre] 3 Mg/2.5 Ml Suspension For Nebulization - Please Send To Pharmacy XX 06/13/25 00:00 CLARIFY [facility] Naloxone HCl 0.1 mg 05/15/25 12:21 Naloxone Hcl 0.4 Mg/Ml Vial IV PUSH Q2M PRN Opiate Reversal Non-Formulary Medication 2 inhalation 05/14/25 20:15 Lauvnkhjui-Iahyypnv-Elxwmfnxkh [Breztri Aerosphere] INHALATION 06/13/25 20:14 QAM AND QPM [facility] Non-Formulary Medication 2.5 ml 05/14/25 23:00 Ensifentrine [[place]htuvayre] INHALATION 06/13/25 22:59 QAM AND QPM [facility] Ondansetron HCl 4 mg 05/14/25 16:52 Ondansetron Inj 4 Mg/2 Ml Vial IV PUSH Q4H PRN Nausea Ondansetron HCl 4 mg 05/15/25 10:41 Ondansetron Inj 4 Mg/2 Ml Vial IV PUSH ONCE PRN Nausea Oxycodone HCl 5 mg 05/14/25 20:06 Oxycodone Hcl (*Crx) 5 Mg Tab Ir PO Q4H PRN Pain Rated 5 or Less Oxycodone HCl 10 mg 05/14/25 20:06 Oxycodone Hcl (*Crx) 5 Mg Tab Ir PO Q4H PRN Pain Rated 6 or Greater Perflutren Lipid Microsphere 0 ml 05/14/25 17:34 Perflutren Lipid Microspheres 1.5 Ml Vial Diluted To 10 Ml Total Volume IV PUSH 05/17/25 17:34 ONCE PRN adequate visualization Protocol Polyethylene Glycol 17 gm 05/16/25 09:00 Polyethylene Glycol 3350 17 Gm Powd.Pack PO QAM PRASANTH Senna/Docusate Sodium 2 tab 05/15/25 17:00 Senna/Docusate Sodium Tablet PO BID [facility] Radiology Results: ITS Impressions Femur X-Ray 05/14/25 14:32 Impression: 1: Displaced right femoral intertrochanteric fracture with varus angulation. Hip/Pelvis X-Ray 05/14/25 14:32 Impression: 1: Displaced right femoral intertrochanteric fracture with varus angulation. Chest X-Ray 05/14/25 14:34 Impression: 1: No acute cardiopulmonary disease. Labs Labs: Laboratory Results - last 24 hr 05/14/25 05/14/25 05/14/25 14:59 16:31 20:44 Band Neutrophils % Not Reportable Platelet Estimate Decreased Hypochromasia 1+ Schistocytes None seen Puncture Site Left brachial ABG pH 7.329 L ABG pCO2 80.7 H* ABG pO2 144.6 H ABG PO2/FiO2 Ratio 4.02 ABG HCO3 41.5 H ABG O2 Saturation 98.6 ABG O2 Content 15.2 L ABG Base Excess 12.7 A-a Gradient 18.5 Oxyhemoglobin 97.6 Carboxyhemoglobin 1.0 Methemoglobin 0.3 Reduced Hemoglobin 1.1 Total Hemoglobin 10.9 L O2 Delivery Device Nasal cannula O2 Liters/Min 4.0 FiO2 36 Urine Color Urine Appearance Urine pH Ur Specific [place] Urine Protein Urine Glucose (UA) Urine Ketones Ur Blood (Man) Urine Nitrate Urine Bilirubin Urine Urobilinogen Add Ur Microanalysis Leukocyte Esterase Rfl Urine RBC Urine WBC Ur Squamous Epith Cells Urine Bacteria Urine Casts Urine Mucus Blood Type A Positive Antibody Screen Negative 05/14/25 22:02 Band Neutrophils % Platelet Estimate Hypochromasia Schistocytes Puncture Site ABG pH ABG pCO2 ABG pO2 ABG PO2/FiO2 Ratio ABG HCO3 ABG O2 Saturation ABG O2 Content ABG Base Excess A-a Gradient Oxyhemoglobin Carboxyhemoglobin Methemoglobin Reduced Hemoglobin Total Hemoglobin O2 Delivery Device O2 Liters/Min FiO2 Urine Color Yellow Urine Appearance Clear Urine pH 6.5 Ur Specific [place] 1.021 Urine Protein Trace Urine Glucose (UA) Negative Urine Ketones 1+ H Ur Blood (Man) Negative Urine Nitrate Negative Urine Bilirubin Negative Urine Urobilinogen 1.0 Add Ur Microanalysis Reviewed Leukocyte Esterase Rfl Negative Urine RBC 0-2 Urine WBC 0-5 Ur Squamous Epith Cells None seen Urine Bacteria None seen Urine Casts 0-2 Urine Mucus Present Blood Type Antibody Screen Quality VTE Prophylaxis VTE prophylaxis: mechanical ordered
--- NOTE | 2025-05-15 17:42 | PHAR ---
The following home meds have been verified by pharmacy: Levalbuterol 1.25 mg/3 ml nebulizer soln Breztri Aerosphere 160 mcg/9 mcg/4.8 mcg MDI Ensifentrine 3 mg/2.5 ml Inhalation susp.
[2025-05-15] MEDS: ceFAZolin 1 GM in SODIUM CHLORIDE 0.9% IV 50 ML 100 ML IVPB (17:52)
[2025-05-15] MEDS: ATORVASTATIN 40 MG TABLET 80 MG PO (20:12)
[2025-05-15] MEDS: KETOROLAC 15 MG/ML VIAL (*BKC) IV PUSH (20:13)
[2025-05-16] VITALS (13 sets, daily range): BP systolic 113–134; BP diastolic 47–60; PULSE 70–86; RESP 16–20; TEMP 36.1–36.8; O2SAT 98–100
[2025-05-16] MEDS: ACETAMINOPHEN 325 MG TABLET 650 MG PO ×2 (01:57→16:30)
[2025-05-16] MEDS: ceFAZolin 1 GM in SODIUM CHLORIDE 0.9% IV 50 ML 100 ML IVPB ×2 (02:00→09:30)
[2025-05-16 05:01] LABS: Hematocrit 29.4 % (37.0-47.0); Hemoglobin 8.5 g/dL (12.0-15.0); Immature Granulocyte Percent A 0.4 % (0-0.5); Immature Platelet Fraction Pct 11.7 % (0.9-11.2); Lymphocytes Absolute Auto 1.10 K/mm3 (0.9-3.2); Mean Corpuscular HGB Conc 28.9 g/dl (32-36); Mean Corpuscular Hemoglobin 28.4 pg (26-34); Mean Corpuscular Volume 98.3 fl (80-100); Nucleated Red Blood Cells Absolute Auto 0.000 K/mm3 (0.0-0.012); Nucleated Red Blood Cells Perc 0.0 % (0.0-0.2); Platelet Count Result 120 k/mm3 (150-375); Red Blood Count 2.99 M/mm3 (4.2-5.4); White Blood Count 9.9 K/mm3 (4.5-10.0)
[2025-05-16 05:28] LABS: Blood Urea Nitrogen 30 mg/dL (7-17); Calcium 8.1 mg/dL (8.4-10.2); Chloride 92 mmol/L (98-107); Estimated CRCL calculation 48 ml/min; Estimated Glomerular Filt Rate > 60; Glucose 135 mg/dL (65-110); Potassium 4.5 mmol/L (3.4-5.0); Sodium 132 mmol/L (137-145)
[2025-05-16 05:30] LABS: Carbon Dioxide > 40 mmol/L (22-30); Hypochromasia 1+
[2025-05-16 05:31] LABS: Anisocytosis 1+; Ovalocytes 1+; Schistocytes None Seen
[2025-05-16] MEDS: FERROUS SULFATE 325 MG TABLET DR PO (08:26)
[2025-05-16] MEDS: ASPIRIN 81 MG ENTERIC TABLET PO (08:26)
[2025-05-16] MEDS: buPROPion HCL XL (24 HR) 150 MG TABCR 300 MG PO (08:26)
[2025-05-16] MEDS: KETOROLAC 15 MG/ML VIAL (*BKC) IV PUSH ×2 (08:26→20:43)
--- NOTE | 2025-05-16 09:17 | P.CONCA_ITS ---
Assessment and Plan Assessment and plan (1) CAD (coronary artery disease): Qualifiers: Coronary Disease-Associated Artery/Lesion type: unspecified vessel or lesion type [place] vs. transplanted heart: [place] heart Associated angina: w ithout angina Qualified Code(s): I25.10 - Atherosclerotic heart disease of [place] coronary artery without angina pectoris Code(s): I25.10 - Atherosclerotic heart disease of [place] coronary artery without angina pectoris Status: Acute Plan Upon arrival to see this patient as consult was requested yesterday she was already out of the room and in the operating room he is undergoing hip surgery. Obviously it was decided that preop consultation/clearance was not necessary. The patient was therefore not seen and will not be seen in charge for consultation since it was he apparently determined to be unnecessary Mir Rodriguez MD [facility] History of Present Illness History of Present Illness Consult date/time: 05/16/25 09:17 Reason For Visit: R Intertrochanteric Femur F/Chronic Hypoxic/Hyperc PMFSH Past Medical History Medical History Post herpetic neuralgia Neck and shoulder pain Depression Essential (primary) hypertension Dependence on continuous supplemental oxygen Hx of myocardial infarction stent placement - Follows with Dr King [place] CRUZ cardiology Lung nodule Osteoporosis HLD (hyperlipidemia) CAD (coronary artery disease) Chronic obstructive pulmonary disease Hypoxemia Former smoker Quit smoking in 2009, 30 pack years. Family History Family History Sibling Family history of cardiovascular disease Mother Family history of cardiovascular disease, Onset Age: 71 Family history of dementia, Onset Age: 71 Social History Social History Smoking packs per day: 1 Smoking cigarettes per day: 20.0 Years smoked: 30 Smoking pack-years: 30.00 Smoking status: Former smoker Second hand tobacco smoke exposure: Yes Alcohol intake: current Do You Feel Safe in your Home?: Yes Lack of Transportation: No Lack of Food: Never True Current Housing: I Have Housing Concerned About Future Housing: No Difficulty Paying Gas/Electric Bills: No Difficulty Paying for Meds: No Currently Unemployed: No Education: Associate Degree Difficulty w/ Childcare or Family Care: No Spiritual care concerns: No Meds Home Medications and Allergies Home Medications ?Medication ?Instructions ?Recorded ?Confirmed ?Type aspirin 81 mg tablet,delayed 81 mg PO DAILY 12/23/19 05/14/25 History release (Adult Aspirin Regimen) atorvastatin 80 mg tablet (Lipitor) 80 mg PO DAILY 12/23/19 05/14/25 History vitamin B complex (B 1 tablet PO DAILY 12/23/19 05/14/25 History Complex-Vitamin B12 tablet) carvedilol 12.5 mg tablet 6.25 mg PO Q12H 02/21/21 05/14/25 History bupropion HCl 300 mg 24 hr tablet, 300 mg PO QAM #90 tabs 06/15/24 05/14/25 Rx extended release levalbuterol HCl 1.25 mg/3 mL See Rx Instructions .Route 07/08/24 05/14/25 Rx solution for nebulization .COMPLEX #750 mL albuterol sulfate 90 mcg/actuation See Rx Instructions .Route 12/17/24 05/14/25 Rx aerosol inhaler .COMPLEX #25.5 grams Ohtuvayre 3 mg/2.5 mL suspension 2.5 ml inhalation QAM AND QPM #150 12/21/24 05/14/25 Rx for nebulization (ensifentrine) mL Breztri Aerosphere 160 2 inh inhalation QAM AND QPM #10.7 04/23/25 05/14/25 Rx mcg-9mcg-4.8mcg/actuation HFA grams aerosol inhaler (bsqdxmmnyp-rjmvakqx-rpfhvihngd) hydrocodone 5 mg-acetaminophen 325 1 tablet PO BID PRN pain #40 tabs 05/03/25 05/14/25 Rx mg tablet ferrous sulfate 325 mg (65 mg 325 mg PO DAILY #90 tabs 05/07/25 05/14/25 Rx iron) tablet Allergies Allergy/AdvReac Type Severity Reaction Status Date / Time No Known Allergies Allergy Verified 05/14/25 13:48 Vital Signs Vital Signs - 24 hr 05/15/25 11:14 05/15/25 11:25 05/15/25 11:40 Temperature 36.3 C L Pulse Rate 73 73 72 Respiratory Rate 12 16 16 Blood Pressure 140/63 145/64 H 150/60 H Pulse Oximetry 100 95 100 Oxygen Delivery Room Air Nasal Cannula Nasal Cannula Oxygen Flow Rate 4 4 05/15/25 11:55 05/15/25 12:10 05/15/25 12:19 Temperature 36.2 C L Pulse Rate 70 71 72 Respiratory Rate 14 18 16 Blood Pressure 144/98 H 144/98 H 143/66 H Pulse Oximetry 100 100 100 Oxygen Delivery Nasal Cannula Nasal Cannula Nasal Cannula Oxygen Flow Rate 4 4 4 05/15/25 12:37 05/15/25 12:53 05/15/25 13:02 Temperature 36.2 C L 36.3 C L Pulse Rate 80 82 82 Respiratory Rate 16 18 Blood Pressure 147/69 H 155/72 H Pulse Oximetry 98 99 Oxygen Delivery Oxygen Flow Rate 05/15/25 13:25 05/15/25 13:49 05/15/25 16:00 Temperature Pulse Rate 100 Respiratory Rate Blood Pressure Pulse Oximetry Oxygen Delivery Nasal Cannula Nasal Cannula Oxygen Flow Rate 4 4 05/15/25 17:10 05/15/25 20:00 05/15/25 20:00 Temperature 36.7 C Pulse Rate 100 97 Respiratory Rate 18 Blood Pressure 141/65 H Pulse Oximetry 95 99 Oxygen Delivery Nasal Cannula Oxygen Flow Rate 4 05/15/25 20:12 05/15/25 20:41 05/16/25 00:00 Temperature 36.6 C Pulse Rate 109 H 90 70 Respiratory Rate 16 Blood Pressure 142/73 H Pulse Oximetry 99 Oxygen Delivery Oxygen Flow Rate 05/16/25 00:45 05/16/25 04:00 05/16/25 04:25 Temperature 36.1 C L 36.2 C L Pulse Rate 76 79 79 Respiratory Rate 20 20 Blood Pressure 115/51 L 134/50 L Pulse Oximetry 100 100 Oxygen Delivery Oxygen Flow Rate Results Labs and Meds 05/16/25 04:05 05/16/25 04:05 Lab results: CBC 05/16/25 Range/Units 04:05 WBC 9.9 (4.5-10.0) K/mm3 RBC 2.99 L (4.2-5.4) M/mm3 Hgb 8.5 L (12.0-15.0) g/dL Hct 29.4 L (37.0-47.0) % Plt Count 120 L (150-375) k/mm3 Lymph # (Auto) 1.10 (0.9-3.2) K/mm3 [place] # (Auto) 1.2 H (0.1-0.6) K/mm3 Eos # (Auto) 0.0 (0-0.3) K/mm3 Baso # (Auto) 0.0 (0.0-0.1) K/mm3 Comprehensive Metabolic Panel 05/16/25 Range/Units 04:05 Sodium 132 L (137-145) mmol/L Potassium 4.5 (3.4-5.0) mmol/L Chloride 92 L (98-107) mmol/L Carbon Dioxide > 40 H (22-30) mmol/L BUN 30 H D (7-17) mg/dL Creatinine 0.66 L (0.7-1.0) mg/dL Glucose 135 H (65-110) mg/dL Calcium 8.1 L (8.4-10.2) mg/dL Intake and Output 05/15/25 05/16/25 05/16/25 23:59 07:59 15:59 Intake Total 1080 100 Output Total 250 Balance 1080 -150 Intake: IV 50 ceFAZolin 1 gm In Sodium 50 Chloride 0.9% IV 50 ml @ 100 mls/hr IVPB Q8H [facility] Rx#: [id number] Oral 1030 100 Output: Catheter Urine 250 External/Condom 250
[2025-05-16] MEDS: GLYCOPYRROLATE INHALATION ×2 (13:43→21:00)
[2025-05-16] MEDS: [UNRECOGNIZED DRUG - OTHER] INHALATION ×2 (13:43→21:00)
[2025-05-16] MEDS: ENSIFENTRINE INHALATION ×2 (13:43→21:00)
[2025-05-16] MEDS: FORMOTEROL FUMARATE INHALATION ×2 (13:43→21:00)
[2025-05-16] MEDS: BUDESONIDE INHALATION ×2 (13:43→21:00)
--- NOTE | 2025-05-16 17:01 | P.PNIM_ITS ---
Progress Note: A&P Assessment and Plan (1) Fall from ground level: Code(s): W18.30XA - Fall on same level, unspecified, initial encounter Status: Acute Assessment and Plan: PT and OT after surgery Urine is negative for infection (2) Closed intertrochanteric fracture of femur: Qualifiers: Encounter type: initial encounter Fracture alignment: displaced Laterality: right Qualified Code(s): S72.141A - Displaced intertrochanteric fracture of right femur, initial encounter for closed fracture Code(s): S72.143A - Displaced intertrochanteric fracture of unspecified femur, initial encounter for closed fracture Status: Acute Assessment and Plan: Orthopedics consulted Plan for OR tomorrow morning NPO status with meds Pain management bowel protocol (3) CAD (coronary artery disease): Qualifiers: Coronary Disease-Associated Artery/Lesion type: unspecified vessel or lesion type [place] vs. transplanted heart: [place] heart Associated angina: without angina Qualified Code(s): I25.10 - Atherosclerotic heart disease of [place] coronary artery without angina pectoris Code(s): I25.10 - Atherosclerotic heart disease of [place] coronary artery without angina pectoris Status: Acute Assessment and Plan: Continue aspirin, Lipitor, and Coreg Telemetry monitoring (4) Chronic hypoxic respiratory failure, on home oxygen therapy: Code(s): J96.11 - Chronic respiratory failure with hypoxia; Z99.81 - Dependence on supplemental oxygen Assessment and Plan: ABG shows the patient is compensated however she is also over oxygen needed will decrease home O2 from 4 L to 2 L Home meds restarted (5) Depression: Qualifiers: Depression Type: unspecified Qualified Code(s): F32.9 - Major depressive disorder, single episode, unspecified Code(s): F32.9 - Major depressive disorder, single episode, unspecified Status: Acute Assessment and Plan: Continue Wellbutrin Plan patient with fall, x-ray showed displaced right femoral intertrochanteric fracture with varus angulation. patient was seen by Dr. Burch, an orthopedic surgeon, and patient had ORIF on 05/15 POD#1, patient stats feels much better compared to when she arrived, laying down in the bed, stats was able to take few steps, with PT, patient is encouraged to work with PT, and increase calorie intake to help heal the wound and more energy to work with PT. patient has agreed. Subjective Date/time seen: 05/16/25 17:01 Interval history: Fall with hip pain H&P-Narrative: 70-year-old female past medical history of severe COPD, CAD, hypertension, hyperlipidemia, home O2, history of RI with stent placement presents the hospital with hip pain after fall. She states that she got up in the middle the night go the bathroom when she fell landing on her right side. Patient states that she was unable to get up by herself the fall the fire department they had recommended that she go to the hospital she had refused at that time. They placed her on her couch which is where she spent all night. After house edema from his chemo appointment she let EMS taken to the hospital. Right lower extremity is shortened and externally rotated. Patient has not been able walk on it since the fall. Lab work shows anemia at 10.3 which is around baseline, ABG is 7.32 pCO2 80, PO2 144, bicarb 41.5, chloride 49 carbon dioxide over 40 creatinine 0.56, chest x- ray shows no acute process. Right femur x-ray shows displaced right femoral intertrochanteric fracture with varus angulation. EKG shows sinus rhythm with PVCs. patient with fall, x-ray showed displaced right femoral intertrochanteric fracture with varus angulation. patient was seen by Dr. Burch, an orthopedic surgeon, and patient had ORIF on 05/15 POD#1, patient stats feels much better compared to when she arrived, laying down in the bed, stats was able to take few steps, with PT, patient is encouraged to work with PT, and increase calorie intake to help heal the wound and more energy to work with PT. patient has agreed. Review of Systems Review of Systems: Denies loss of consciousness. All systems reviewed & are unremarkable except as noted in HPI and below Exam Narrative: Patient is comfortable, NAD HEENT: eyes are clear and none icteric LUNGS:CTA HEART: RR S1S2 ABD: BS+, Soft and nontender Lower extremities: no edema SKIN: nonjaundiced Neuro: grossly intact. Objective Data Vital Signs Vital Signs: Vital Signs - 24 hr 05/15/25 17:10 05/15/25 20:00 05/15/25 20:00 Temperature 36.7 C Pulse Rate 100 97 Respiratory Rate 18 Blood Pressure 141/65 H Pulse Oximetry 95 99 Oxygen Delivery Nasal Cannula Oxygen Flow Rate 4 05/15/25 20:12 05/15/25 20:41 05/16/25 00:00 Temperature 36.6 C Pulse Rate 109 H 90 70 Respiratory Rate 16 Blood Pressure 142/73 H Pulse Oximetry 99 Oxygen Delivery Oxygen Flow Rate 05/16/25 00:45 05/16/25 04:00 05/16/25 04:25 Temperature 36.1 C L 36.2 C L Pulse Rate 76 79 79 Respiratory Rate 20 20 Blood Pressure 115/51 L 134/50 L Pulse Oximetry 100 100 Oxygen Delivery Oxygen Flow Rate 05/16/25 07:55 05/16/25 08:00 05/16/25 08:00 Temperature Pulse Rate 70 79 Respiratory Rate 16 Blood Pressure Pulse Oximetry 100 Oxygen Delivery Nasal Cannula Nasal Cannula Oxygen Flow Rate 4 4 05/16/25 08:30 05/16/25 10:06 05/16/25 12:00 Temperature 36.8 C Pulse Rate 82 82 83 Respiratory Rate 18 Blood Pressure 119/50 L Pulse Oximetry 98 Oxygen Delivery Oxygen Flow Rate 05/16/25 14:06 Temperature 36.3 C L Pulse Rate 86 Respiratory Rate 18 Blood Pressure 127/47 L Pulse Oximetry 98 Oxygen Delivery Oxygen Flow Rate Intake/Output Intake/Output: Intake & Output 05/13/25 05/14/25 05/15/25 05/16/25 23:59 23:59 23:59 23:59 Intake Total 1370 560 Output Total 200 250 Balance 1170 310 Meds/Results Medications: Active Medications Generic Name Dose Route Start Last Admin Trade Name Freq PRN Reason Stop Dose Admin Acetaminophen 650 mg 05/15/25 02:00 05/16/25 16:30 Acetaminophen 325 Mg Tablet PO 650 mg Q12H PRASANTH Administration Hydrocodone Bitart/Acetaminophen 1 tab 05/14/25 16:52 05/14/25 17:05 Hydrocodone/Acetaminophen (*Crx) 5-325 Mg Tablet PO 1 tab Q4H PRN Administration Pain Rated 4-6 Albuterol 0 puff 05/14/25 20:05 Albuterol Sulfate (*Sp) Aerosol 1 Puff INHALATION Q6H PRN Wheezing Aspirin 81 mg 05/15/25 09:00 05/16/25 08:26 Aspirin 81 Mg Enteric Tablet PO 81 mg DAILY PRASANTH Administration Atorvastatin Calcium 80 mg 05/15/25 21:00 05/15/25 20:12 Atorvastatin 40 Mg Tablet PO 80 mg HS PRASANTH Administration Bupropion HCl 300 mg 05/15/25 09:00 05/16/25 08:26 Bupropion Hcl Xl (24 Hr) 150 Mg Tabcr PO 300 mg QAM PRASANTH Administration Carvedilol 6.25 mg 05/14/25 21:00 05/16/25 08:30 Carvedilol 6.25 Mg Tablet PO 6.25 mg Q12H PRASANTH Administration Dextrose 12.5 gm 05/14/25 16:56 Dextrose 50% 25 Gm/50 Ml Syringe IV PUSH PRN PRN Hypoglycemia Protocol Fentanyl Citrate 25 mcg 05/15/25 10:41 Fentanyl Citrate Inj (*Crx) 100 Mcg/2 Ml Vial IV PUSH Q2M PRN Pain Ferrous Sulfate 325 mg 05/15/25 09:00 05/16/25 08:26 Ferrous Sulfate [address] PO 325 mg DAILY PRASANTH Administration Glucagon 1 mg 05/14/25 16:56 Glucagon For Inj 1 Mg Vial IM PRN PRN Hypoglycemia Protocol Glucose 15 gm 05/14/25 16:56 Glucose Oral Gel 15 Gm Of Glucse In 37.5 Gm Tube PO PRN PRN Hypoglycemia Protocol Dextrose 1,000 mls @ 100 mls/hr 05/14/25 16:56 Dextrose 5% 1,000 Ml IVPB PRN PRN Hypoglycemia Protocol Lactated Ringer's 1,000 mls @ 30 mls/hr 05/15/25 07:00 05/16/25 13:45 Lr - Lactated Ringers Iv IV CONT Not Given .Q24H PRASANTH Lactated Ringer's 1,000 mls @ 30 mls/hr 05/15/25 10:45 05/16/25 13:45 Lr - Lactated Ringers Iv IV CONT Not Given .Q24H PRASANTH Ketorolac Tromethamine 15 mg 05/15/25 08:00 05/16/25 08:26 Ketorolac 15 Mg/Ml Vial (*Bkc) IV PUSH 15 mg Q12H PRASANTH Administration Levalbuterol HCl 1.25 mg 05/15/25 17:45 Home Medication: Levalbuterol Neb 1.25 Mg/3 Ml INHALATION Q8HRT PRN SHORTNESS OF BREATH/WHEEZING Miscellaneous Information 1 each 05/15/25 00:01 [place]/Oxycodone Duplicate Pain Scales XX 06/14/25 00:00 CLARIFY PRASANTH Naloxone HCl 0.1 mg 05/15/25 12:21 Naloxone Hcl 0.4 Mg/Ml Vial IV PUSH Q2M PRN Opiate Reversal Non-Formulary ( 0 each 05/15/25 20:00 05/16/25 13:46 Budesonide/ INHALATION 06/14/25 19:59 Not Given Glycopyrrolate/ Q12HRT [facility] Formoterol Fumarate 160 Mcg-9 Mcg-4.8 Mcg...) Non-Formulary ( 0 each 05/15/25 20:00 05/16/25 13:46 Ensifentrine 3 Mg/2. INHALATION 06/14/25 19:59 Not Given 5 Ml Inhalation Q12HRT [facility] Ampul For Nebulization) Ondansetron HCl 4 mg 05/14/25 16:52 Ondansetron Inj 4 Mg/2 Ml Vial IV PUSH Q4H PRN Nausea Ondansetron HCl 4 mg 05/15/25 10:41 Ondansetron Inj 4 Mg/2 Ml Vial IV PUSH ONCE PRN Nausea Oxycodone HCl 5 mg 05/14/25 20:06 Oxycodone Hcl (*Crx) 5 Mg Tab Ir PO Q4H PRN Pain Rated 5 or Less Oxycodone HCl 10 mg 05/14/25 20:06 Oxycodone Hcl (*Crx) 5 Mg Tab Ir PO Q4H PRN Pain Rated 6 or Greater Perflutren Lipid Microsphere 0 ml 05/14/25 17:34 Perflutren Lipid Microspheres 1.5 Ml Vial Diluted To 10 Ml Total Volume IV PUSH 05/17/25 17:34 ONCE PRN adequate visualization Protocol Polyethylene Glycol 17 gm 05/16/25 09:00 05/16/25 13:45 Polyethylene Glycol 3350 17 Gm Powd.Pack PO Not Given QAM [facility] Senna/Docusate Sodium 2 tab 05/15/25 17:00 05/16/25 08:32 Senna/Docusate Sodium Tablet PO Not Given BID [facility] Radiology Results: ITS Impressions Femur X-Ray 05/14/25 14:32 Impression: 1: Displaced right femoral intertrochanteric fracture with varus angulation. Hip/Pelvis X-Ray 05/14/25 14:32 Impression: 1: Displaced right femoral intertrochanteric fracture with varus angulation. Chest X-Ray 05/14/25 14:34 Impression: 1: No acute cardiopulmonary disease. Intraoperative X-Ray 05/16/25 11:34 Impression: 1: Near-anatomic alignment of right femoral intertrochanteric fracture status post reduction with an IT nail. Labs Labs: Laboratory Results - last 24 hr 05/16/25 04:05 WBC 9.9 RBC 2.99 L Hgb 8.5 L Hct 29.4 L MCV 98.3 MCH 28.4 MCHC 28.9 L RDW 14.2 Plt Count 120 L MPV 12.2 H Immature Gran % (Auto) 0.4 Neut % (Auto) 76.8 H Lymph % (Auto) 11.1 L [place] % (Auto) 11.6 H Eos % (Auto) 0.0 Baso % (Auto) 0.1 L Lymph # (Auto) 1.10 [place] # (Auto) 1.2 H Eos # (Auto) 0.0 Baso # (Auto) 0.0 Abs Immat Gran (auto) 0.04 H Absolute Neuts (auto) 7.6 H Absolute Nucleated RBC 0.000 Band Neutrophils % Not Reportable Nucleated RBC % 0.0 Platelet Estimate Decreased % Immature Plt Fraction 11.7 H Hypochromasia 1+ Anisocytosis 1+ Ovalocytes 1+ Schistocytes None seen Sodium 132 L Potassium 4.5 Chloride 92 L Carbon Dioxide > 40 H Anion Gap BUN 30 H D Creatinine 0.66 L Estim Creat Clear Calc 48 Estimated GFR > 60 Glucose 135 H Calcium 8.1 L Quality VTE Prophylaxis VTE prophylaxis: mechanical ordered
[2025-05-16] MEDS: ATORVASTATIN 40 MG TABLET 80 MG PO (20:43)
[2025-05-17] VITALS (13 sets, daily range): BP systolic 104–116; BP diastolic 49–59; PULSE 60–82; RESP 18–20; TEMP 36.1–36.8; O2SAT 96–100; BMI 18.1
[2025-05-17] MEDS: ACETAMINOPHEN 325 MG TABLET 650 MG PO ×2 (01:56→15:07)
[2025-05-17 05:22] LABS: Hematocrit 25.2 % (37.0-47.0); Hemoglobin 7.3 g/dL (12.0-15.0); Mean Corpuscular HGB Conc 29.0 g/dl (32-36); Mean Corpuscular Hemoglobin 28.5 pg (26-34); Mean Corpuscular Volume 98.4 fl (80-100); Platelet Count Result 116 k/mm3 (150-375); Red Blood Count 2.56 M/mm3 (4.2-5.4); White Blood Count 7.9 K/mm3 (4.5-10.0)
[2025-05-17 05:49] LABS: Blood Urea Nitrogen 29 mg/dL (7-17); Calcium 7.9 mg/dL (8.4-10.2); Chloride 95 mmol/L (98-107); Estimated CRCL calculation 51 ml/min; Estimated Glomerular Filt Rate > 60; Glucose 93 mg/dL (65-110); Magnesium 2.3 mg/dL (1.6-2.3); Potassium 4.1 mmol/L (3.4-5.0); Sodium 136 mmol/L (137-145)
[2025-05-17 05:51] LABS: Carbon Dioxide > 40 mmol/L (22-30)
[2025-05-17] MEDS: buPROPion HCL XL (24 HR) 150 MG TABCR 300 MG PO (08:52)
[2025-05-17] MEDS: [UNRECOGNIZED DRUG - OTHER] INHALATION ×2 (08:53→21:20)
[2025-05-17] MEDS: ASPIRIN 81 MG ENTERIC TABLET PO (08:53)
[2025-05-17] MEDS: GLYCOPYRROLATE INHALATION ×2 (08:53→21:20)
[2025-05-17] MEDS: SENNA/DOCUSATE SODIUM TABLET 2 TAB PO (08:53)
[2025-05-17] MEDS: FERROUS SULFATE 325 MG TABLET DR PO (08:53)
[2025-05-17] MEDS: KETOROLAC 15 MG/ML VIAL (*BKC) IV PUSH ×2 (08:53→20:33)
[2025-05-17] MEDS: ENSIFENTRINE INHALATION ×2 (08:53→21:21)
[2025-05-17] MEDS: BUDESONIDE INHALATION ×2 (08:53→21:20)
[2025-05-17] MEDS: FORMOTEROL FUMARATE INHALATION ×2 (08:53→21:20)
--- NOTE | 2025-05-17 11:11 | PCPTNOTE ---
Attempted to see patient for PT, however patient was working with OT.
--- NOTE | 2025-05-17 14:25 | P.PNIM_ITS ---
Progress Note: A&P Assessment and Plan (1) Fall from ground level: Code(s): W18.30XA - Fall on same level, unspecified, initial encounter Status: Acute Assessment and Plan: PT and OT after surgery Urine is negative for infection (2) Closed intertrochanteric fracture of femur: Qualifiers: Encounter type: initial encounter Fracture alignment: displaced Laterality: right Qualified Code(s): S72.141A - Displaced intertrochanteric fracture of right femur, initial encounter for closed fracture Code(s): S72.143A - Displaced intertrochanteric fracture of unspecified femur, initial encounter for closed fracture Status: Acute Assessment and Plan: Orthopedics consulted Plan for OR tomorrow morning NPO status with meds Pain management bowel protocol (3) CAD (coronary artery disease): Qualifiers: Coronary Disease-Associated Artery/Lesion type: unspecified vessel or lesion type [place] vs. transplanted heart: [place] heart Associated angina: without angina Qualified Code(s): I25.10 - Atherosclerotic heart disease of [place] coronary artery without angina pectoris Code(s): I25.10 - Atherosclerotic heart disease of [place] coronary artery without angina pectoris Status: Acute Assessment and Plan: Continue aspirin, Lipitor, and Coreg Telemetry monitoring (4) Chronic hypoxic respiratory failure, on home oxygen therapy: Code(s): J96.11 - Chronic respiratory failure with hypoxia; Z99.81 - Dependence on supplemental oxygen Assessment and Plan: ABG shows the patient is compensated however she is also over oxygen needed will decrease home O2 from 4 L to 2 L Home meds restarted (5) Depression: Qualifiers: Depression Type: unspecified Qualified Code(s): F32.9 - Major depressive disorder, single episode, unspecified Code(s): F32.9 - Major depressive disorder, single episode, unspecified Status: Acute Assessment and Plan: Continue Wellbutrin Plan patient with fall, x-ray showed displaced right femoral intertrochanteric fracture with varus angulation. patient was seen by Dr. Burch, an orthopedic surgeon, and patient had ORIF on 05/15 POD#1, patient stats feels much better compared to when she arrived, laying down in the bed, stats was able to take few steps, with PT, patient is encouraged to work with PT, and increase calorie intake to help heal the wound and more energy to work with PT. patient has agreed. today patient ate her whole, lunch and drank protein shake, was able to walk with PT, patient will benefit going acute rehab as patient has severe COPD will need close monitoring by an MD. Subjective Date/time seen: 05/17/25 14:25 Interval history: Fall with hip pain H&P-Narrative: 70-year-old female past medical history of severe COPD, CAD, hypertension, hyperlipidemia, home O2, history of [place] with stent placement presents the hospital with hip pain after fall. She states that she got up in the middle the night go the bathroom when she fell landing on her right side. Patient states that she was unable to get up by herself the fall the fire department they had recommended that she go to the hospital she had refused at that time. They placed her on her couch which is where she spent all night. After house edema from his chemo appointment she let EMS taken to the hospital. Right lower extremity is shortened and externally rotated. Patient has not been able walk on it since the fall. Lab work shows anemia at 10.3 which is around baseline, ABG is 7.32 pCO2 80, PO2 144, bicarb 41.5, chloride 49 carbon dioxide over 40 creatinine 0.56, chest x- ray shows no acute process. Right femur x-ray shows displaced right femoral intertrochanteric fracture with varus angulation. EKG shows sinus rhythm with PVCs. patient with fall, x-ray showed displaced right femoral intertrochanteric fracture with varus angulation. patient was seen by Dr. Burch, an orthopedic surgeon, and patient had ORIF on 05/15 POD#1, patient stats feels much better compared to when she arrived, laying down in the bed, stats was able to take few steps, with PT, patient is encouraged to work with PT, and increase calorie intake to help heal the wound and more energy to work with PT. patient has agreed. today patient ate her whole, lunch and drank protein shake, was able to walk with PT, patient will benefit going acute rehab as patient has severe COPD will need close monitoring by an MD. Review of Systems Review of Systems: Denies loss of consciousness. All systems reviewed & are unremarkable except as noted in HPI and below Exam Narrative: Patient is comfortable, NAD HEENT: eyes are clear and none icteric LUNGS:CTA HEART: RR S1S2 ABD: BS+, Soft and nontender Lower extremities: no edema SKIN: nonjaundiced Neuro: grossly intact. Objective Data Vital Signs Vital Signs: Vital Signs - 24 hr 05/16/25 16:00 05/16/25 20:00 05/16/25 20:00 Temperature Pulse Rate 83 76 76 Respiratory Rate 20 Blood Pressure Pulse Oximetry 100 Oxygen Delivery Nasal Cannula Oxygen Flow Rate 4 05/16/25 20:43 05/16/25 20:52 05/17/25 00:00 Temperature 36.6 C Pulse Rate 71 84 76 Respiratory Rate 20 Blood Pressure 113/60 Pulse Oximetry 100 Oxygen Delivery Oxygen Flow Rate 05/17/25 04:00 05/17/25 06:00 05/17/25 08:00 Temperature 36.1 C L Pulse Rate 71 77 73 Respiratory Rate 20 Blood Pressure 114/52 L Pulse Oximetry 96 Oxygen Delivery Oxygen Flow Rate 05/17/25 08:50 05/17/25 08:53 05/17/25 12:00 Temperature Pulse Rate 82 77 Respiratory Rate Blood Pressure Pulse Oximetry 96 Oxygen Delivery Nasal Cannula Oxygen Flow Rate 4 05/17/25 13:37 Temperature 36.8 C Pulse Rate 82 Respiratory Rate 18 Blood Pressure 104/49 L Pulse Oximetry 99 Oxygen Delivery Oxygen Flow Rate Intake/Output Intake/Output: Intake & Output 05/14/25 05/15/25 05/16/25 05/17/25 23:59 23:59 23:59 23:59 Intake Total 1370 800 770 Output Total 200 550 150 Balance 1170 250 620 Meds/Results Medications: Active Medications Generic Name Dose Route Start Last Admin Trade Name Freq PRN Reason Stop Dose Admin Acetaminophen 650 mg 05/15/25 02:00 05/17/25 01:56 Acetaminophen 325 Mg Tablet PO 650 mg Q12H PRASANTH Administration Hydrocodone Bitart/Acetaminophen 1 tab 05/14/25 16:52 05/14/25 17:05 Hydrocodone/Acetaminophen (*Crx) 5-325 Mg Tablet PO 1 tab Q4H PRN Administration Pain Rated 4-6 Albuterol 0 puff 05/14/25 20:05 Albuterol Sulfate (*Sp) Aerosol 1 Puff INHALATION Q6H PRN Wheezing Aspirin 81 mg 05/15/25 09:00 05/17/25 08:53 Aspirin 81 Mg Enteric Tablet PO 81 mg DAILY PRASANTH Administration Atorvastatin Calcium 80 mg 05/15/25 21:00 05/16/25 20:43 Atorvastatin 40 Mg Tablet PO 80 mg HS PRASANTH Administration Bupropion HCl 300 mg 05/15/25 09:00 05/17/25 08:52 Bupropion Hcl Xl (24 Hr) 150 Mg Tabcr PO 300 mg QAM PRASANTH Administration Carvedilol 6.25 mg 05/14/25 21:00 05/17/25 08:53 Carvedilol 6.25 Mg Tablet PO 6.25 mg Q12H PRASANTH Administration Dextrose 12.5 gm 05/14/25 16:56 Dextrose 50% 25 Gm/50 Ml Syringe IV PUSH PRN PRN Hypoglycemia Protocol Ferrous Sulfate 325 mg 05/15/25 09:00 05/17/25 08:53 Ferrous Sulfate [address] PO 325 mg DAILY PRASANTH Administration Glucagon 1 mg 05/14/25 16:56 Glucagon For Inj 1 Mg Vial IM PRN PRN Hypoglycemia Protocol Glucose 15 gm 05/14/25 16:56 Glucose Oral Gel 15 Gm Of Glucse In 37.5 Gm Tube PO PRN PRN Hypoglycemia Protocol Dextrose 1,000 mls @ 100 mls/hr 05/14/25 16:56 Dextrose 5% 1,000 Ml IVPB PRN PRN Hypoglycemia Protocol Ketorolac Tromethamine 15 mg 05/15/25 08:00 05/17/25 08:53 Ketorolac 15 Mg/Ml Vial (*[facility]) IV PUSH 15 mg Q12H PRASANTH Administration Levalbuterol HCl 1.25 mg 05/15/25 17:45 Home Medication: Levalbuterol Neb 1.25 Mg/3 Ml INHALATION Q8HRT PRN SHORTNESS OF BREATH/WHEEZING Miscellaneous Information 1 each 05/15/25 00:01 [place]/Oxycodone Duplicate Pain Scales XX 06/14/25 00:00 CLARIFY PRASANTH Naloxone HCl 0.1 mg 05/15/25 12:21 Naloxone Hcl 0.4 Mg/Ml Vial IV PUSH Q2M PRN Opiate Reversal Non-Formulary ( 0 each 05/15/25 20:00 05/16/25 21:00 Budesonide/ INHALATION 06/14/25 19:59 2 each Glycopyrrolate/ Q12HRT PRASANTH Administration Formoterol Fumarate 160 Mcg-9 Mcg-4.8 Mcg...) Non-Formulary ( 0 each 05/15/25 20:00 05/16/25 21:00 Ensifentrine 3 Mg/2. INHALATION 06/14/25 19:59 3 each 5 Ml Inhalation Q12HRT PRASANTH Administration Ampul For Nebulization) Ondansetron HCl 4 mg 05/14/25 16:52 Ondansetron Inj 4 Mg/2 Ml Vial IV PUSH Q4H PRN Nausea Oxycodone HCl 5 mg 05/14/25 20:06 Oxycodone Hcl (*Crx) 5 Mg Tab Ir PO Q4H PRN Pain Rated 5 or Less Oxycodone HCl 10 mg 05/14/25 20:06 Oxycodone Hcl (*Crx) 5 Mg Tab Ir PO Q4H PRN Pain Rated 6 or Greater Perflutren Lipid Microsphere 0 ml 05/14/25 17:34 Perflutren Lipid Microspheres 1.5 Ml Vial Diluted To 10 Ml Total Volume IV PUSH 05/17/25 17:34 ONCE PRN adequate visualization Protocol Polyethylene Glycol 17 gm 05/16/25 09:00 05/17/25 08:54 Polyethylene Glycol 3350 17 Gm Powd.Pack PO 17 gm QAM PRASANTH Administration Senna/Docusate Sodium 2 tab 05/15/25 17:00 05/17/25 08:53 Senna/Docusate Sodium Tablet PO 2 tab BID PRASANTH Administration Radiology Results: ITS Impressions Femur X-Ray 05/14/25 14:32 Impression: 1: Displaced right femoral intertrochanteric fracture with varus angulation. Hip/Pelvis X-Ray 05/14/25 14:32 Impression: 1: Displaced right femoral intertrochanteric fracture with varus angulation. Chest X-Ray 05/14/25 14:34 Impression: 1: No acute cardiopulmonary disease. Intraoperative X-Ray 05/16/25 11:34 Impression: 1: Near-anatomic alignment of right femoral intertrochanteric fracture status post reduction with an IT nail. Labs Labs: Laboratory Results - last 24 hr 05/17/25 04:12 WBC 7.9 RBC 2.56 L Hgb 7.3 L Hct 25.2 L MCV 98.4 MCH 28.5 MCHC 29.0 L RDW 14.6 H Plt Count 116 L MPV 12.1 H Sodium 136 L Potassium 4.1 Chloride 95 L Carbon Dioxide > 40 H Anion Gap BUN 29 H Creatinine 0.62 L Estim Creat Clear Calc 51 Estimated GFR > 60 Glucose 93 Calcium 7.9 L Magnesium 2.3 Quality VTE Prophylaxis VTE prophylaxis: mechanical ordered
[2025-05-17] MEDS: ONDANSETRON INJ 4 MG/2 ML VIAL IV PUSH (20:33)
[2025-05-17] MEDS: ATORVASTATIN 40 MG TABLET 80 MG PO (20:33)
[2025-05-18] VITALS (20 sets, daily range): BP systolic 116–158; BP diastolic 47–87; PULSE 67–85; RESP 12–20; TEMP 36.4–37.3; O2SAT 93–100
[2025-05-18] MEDS: ACETAMINOPHEN 325 MG TABLET 650 MG PO ×2 (01:39→13:27)
[2025-05-18 04:56] LABS: Hematocrit 24.5 % (37.0-47.0); Hemoglobin 7.1 g/dL (12.0-15.0); Mean Corpuscular HGB Conc 29.0 g/dl (32-36); Mean Corpuscular Hemoglobin 28.5 pg (26-34); Mean Corpuscular Volume 98.4 fl (80-100); Platelet Count Result 126 k/mm3 (150-375); Red Blood Count 2.49 M/mm3 (4.2-5.4); White Blood Count 6.7 K/mm3 (4.5-10.0)
[2025-05-18 05:16] LABS: Blood Urea Nitrogen 22 mg/dL (7-17); Calcium 7.8 mg/dL (8.4-10.2); Carbon Dioxide > 40 mmol/L (22-30); Chloride 97 mmol/L (98-107); Estimated CRCL calculation 53 ml/min; Estimated Glomerular Filt Rate > 60; Glucose 104 mg/dL (65-110); Magnesium 2.4 mg/dL (1.6-2.3); Potassium 4.5 mmol/L (3.4-5.0); Sodium 136 mmol/L (137-145)
[2025-05-18] MEDS: oxyCODONE HCL (*CRX) 5 MG TAB IR PO (06:35)
[2025-05-18] MEDS: [UNRECOGNIZED DRUG - OTHER] INHALATION ×2 (07:46→21:11)
[2025-05-18] MEDS: BUDESONIDE INHALATION ×2 (07:46→21:11)
[2025-05-18] MEDS: GLYCOPYRROLATE INHALATION ×2 (07:46→21:11)
[2025-05-18] MEDS: FORMOTEROL FUMARATE INHALATION ×2 (07:46→21:11)
[2025-05-18] MEDS: ENSIFENTRINE INHALATION ×2 (07:47→21:11)
[2025-05-18] MEDS: ASPIRIN 81 MG ENTERIC TABLET PO (08:28)
[2025-05-18] MEDS: KETOROLAC 15 MG/ML VIAL (*BKC) IV PUSH ×2 (08:28→20:24)
[2025-05-18] MEDS: SENNA/DOCUSATE SODIUM TABLET 2 TAB PO ×2 (08:28→18:07)
[2025-05-18] MEDS: FERROUS SULFATE 325 MG TABLET DR PO (08:28)
[2025-05-18] MEDS: buPROPion HCL XL (24 HR) 150 MG TABCR 300 MG PO (08:28)
--- NOTE | 2025-05-18 13:11 | P.PNIM_ITS ---
Progress Note: A&P Assessment and Plan (1) Fall from ground level: Code(s): W18.30XA - Fall on same level, unspecified, initial encounter Status: Acute Assessment and Plan: PT and OT after surgery Urine is negative for infection (2) Closed intertrochanteric fracture of femur: Qualifiers: Encounter type: initial encounter Fracture alignment: displaced Laterality: right Qualified Code(s): S72.141A - Displaced intertrochanteric fracture of right femur, initial encounter for closed fracture Code(s): S72.143A - Displaced intertrochanteric fracture of unspecified femur, initial encounter for closed fracture Status: Acute Assessment and Plan: Orthopedics consulted Plan for OR tomorrow morning NPO status with meds Pain management bowel protocol (3) CAD (coronary artery disease): Qualifiers: Associated angina: without angina Coronary Disease-Associated Artery/Lesion type: unspecified vessel or lesion type [place] vs. transplanted heart: [place] heart Qualified Code(s): I25.10 - Atherosclerotic heart disease of [place] coronary artery without angina pectoris Code(s): I25.10 - Atherosclerotic heart disease of [place] coronary artery without angina pectoris Status: Acute Assessment and Plan: Continue aspirin, Lipitor, and Coreg Telemetry monitoring (4) Chronic hypoxic respiratory failure, on home oxygen therapy: Code(s): J96.11 - Chronic respiratory failure with hypoxia; Z99.81 - Dependence on supplemental oxygen Assessment and Plan: ABG shows the patient is compensated however she is also over oxygen needed will decrease home O2 from 4 L to 2 L Home meds restarted (5) Depression: Qualifiers: Depression Type: unspecified Qualified Code(s): F32.9 - Major depressive disorder, single episode, unspecified Code(s): F32.9 - Major depressive disorder, single episode, unspecified Status: Acute Assessment and Plan: Continue Wellbutrin Plan patient with fall, x-ray showed displaced right femoral intertrochanteric fracture with varus angulation. patient was seen by Dr. Burch, an orthopedic surgeon, and patient had ORIF on 05/15 POD#3, patient stats feels much better compared to when she arrived, sitting down in the bed, today patient walk with the PT, was not as short of breath, and patient is encourage to increase calorie intake to help heal the wound and more energy to work with PT. patient has agreed. today patient ate her whole, lunch and drank protein shake, again was able to walk with PT, today patient Hgb is 7.1 compared to 10.3 when he arrived, most likely due to acute lose during surgery and some hemodilution, will give 1 units of PRBC, patient will benefit going acute rehab as patient has severe COPD will need close monitoring by an MD. Subjective Date/time seen: 05/18/25 13:11 Interval history: Fall with hip pain H&P-Narrative: 70-year-old female past medical history of severe COPD, CAD, hypertension, hyperlipidemia, home O2, history of [place] with stent placement presents the hospital with hip pain after fall. She states that she got up in the middle the night go the bathroom when she fell landing on her right side. Patient states that she was unable to get up by herself the fall the fire department they had recommended that she go to the hospital she had refused at that time. They placed her on her couch which is where she spent all night. After house edema from his chemo appointment she let EMS taken to the hospital. Right lower extremity is shortened and externally rotated. Patient has not been able walk on it since the fall. Lab work shows anemia at 10.3 which is around baseline, ABG is 7.32 pCO2 80, PO2 144, bicarb 41.5, chloride 49 carbon dioxide over 40 creatinine 0.56, chest x- ray shows no acute process. Right femur x-ray shows displaced right femoral intertrochanteric fracture with varus angulation. EKG shows sinus rhythm with PVCs. patient with fall, x-ray showed displaced right femoral intertrochanteric fracture with varus angulation. patient was seen by Dr. Burch, an orthopedic surgeon, and patient had ORIF on 05/15 POD#3, patient stats feels much better compared to when she arrived, sitting down in the bed, today patient walk with the PT, was not as short of breath, and patient is encourage to increase calorie intake to help heal the wound and more energy to work with PT. patient has agreed. today patient ate her whole, lunch and drank protein shake, again was able to walk with PT, today patient Hgb is 7.1 compared to 10.3 when he arrived, most likely due to acute lose during surgery and some hemodilution, will give 1 units of PRBC, patient will benefit going acute rehab as patient has severe COPD will need close monitoring by an MD. Review of Systems Review of Systems: Denies loss of consciousness. All systems reviewed & are unremarkable except as noted in HPI and below Exam Narrative: Patient is comfortable, NAD HEENT: eyes are clear and none icteric LUNGS:CTA HEART: RR S1S2 ABD: BS+, Soft and nontender Lower extremities: no edema SKIN: nonjaundiced Neuro: grossly intact. Objective Data Vital Signs Vital Signs: Vital Signs - 24 hr 05/17/25 13:37 05/17/25 16:00 05/17/25 20:00 Temperature 36.8 C Pulse Rate 82 80 60 Respiratory Rate 18 20 Blood Pressure 104/49 L Pulse Oximetry 99 100 Oxygen Delivery Nasal Cannula Oxygen Flow Rate 4 05/17/25 20:00 05/17/25 20:17 05/17/25 20:34 Temperature 36.3 C L Pulse Rate 80 79 79 Respiratory Rate 18 Blood Pressure 116/59 L Pulse Oximetry 100 Oxygen Delivery Oxygen Flow Rate 05/17/25 21:26 05/18/25 00:00 05/18/25 04:00 Temperature Pulse Rate 60 71 73 Respiratory Rate 20 Blood Pressure Pulse Oximetry Oxygen Delivery Oxygen Flow Rate 05/18/25 06:00 05/18/25 07:49 05/18/25 08:00 Temperature 36.6 C Pulse Rate 67 68 Respiratory Rate 20 Blood Pressure 116/50 L Pulse Oximetry 100 100 Oxygen Delivery Nasal Cannula Oxygen Flow Rate 4 05/18/25 08:28 05/18/25 08:30 05/18/25 12:00 Temperature Pulse Rate 76 81 Respiratory Rate Blood Pressure Pulse Oximetry 99 Oxygen Delivery Nasal Cannula Oxygen Flow Rate 4 Intake/Output Intake/Output: Intake & Output 05/15/25 05/16/25 05/17/25 05/18/25 23:59 23:59 23:59 23:59 Intake Total 7480 516 6396 290 Output Total 200 550 150 200 Balance 9343 381 5869 90 Meds/Results Medications: Active Medications Generic Name Dose Route Start Last Admin Trade Name Jerryq PRN Reason Stop Dose Admin Acetaminophen 650 mg 05/15/25 02:00 05/18/25 01:39 Acetaminophen 325 Mg Tablet PO 650 mg Q12H PRASANTH Administration Albuterol 0 puff 05/14/25 20:05 Albuterol Sulfate (*Sp) Aerosol 1 Puff INHALATION Q6H PRN Wheezing Aspirin 81 mg 05/15/25 09:00 05/18/25 08:28 Aspirin 81 Mg Enteric Tablet PO 81 mg DAILY PRASANTH Administration Atorvastatin Calcium 80 mg 05/15/25 21:00 05/17/25 20:33 Atorvastatin 40 Mg Tablet PO 80 mg HS PRASANTH Administration Bupropion HCl 300 mg 05/15/25 09:00 05/18/25 08:28 Bupropion Hcl Xl (24 Hr) 150 Mg Tabcr PO 300 mg QAM PRASANTH Administration Carvedilol 6.25 mg 05/14/25 21:00 05/18/25 08:28 Carvedilol 6.25 Mg Tablet PO 6.25 mg Q12H PRASANTH Administration Dextrose 12.5 gm 05/14/25 16:56 Dextrose 50% 25 Gm/50 Ml Syringe IV PUSH PRN PRN Hypoglycemia Protocol Ferrous Sulfate 325 mg 05/15/25 09:00 05/18/25 08:28 Ferrous Sulfate [address] PO 325 mg DAILY PRASANTH Administration Glucagon 1 mg 05/14/25 16:56 Glucagon For Inj 1 Mg Vial IM PRN PRN Hypoglycemia Protocol Glucose 15 gm 05/14/25 16:56 Glucose Oral Gel 15 Gm Of Glucse In 37.5 Gm Tube PO PRN PRN Hypoglycemia Protocol Dextrose 1,000 mls @ 100 mls/hr 05/14/25 16:56 Dextrose 5% 1,000 Ml IVPB PRN PRN Hypoglycemia Protocol Sodium Chloride 250 mls @ 30 mls/hr 05/18/25 12:02 Normal Saline Iv IV CONT 05/18/25 20:21 .Q8H20M STA Ketorolac Tromethamine 15 mg 05/15/25 08:00 05/18/25 08:28 Ketorolac 15 Mg/Ml Vial (*[facility]) IV PUSH 15 mg Q12H PRASANTH Administration Levalbuterol HCl 1.25 mg 05/15/25 17:45 Home Medication: Levalbuterol Neb 1.25 Mg/3 Ml INHALATION Q8HRT PRN SHORTNESS OF BREATH/WHEEZING Naloxone HCl 0.1 mg 05/15/25 12:21 Naloxone Hcl 0.4 Mg/Ml Vial IV PUSH Q2M PRN Opiate Reversal Non-Formulary ( 0 each 05/15/25 20:00 05/18/25 07:46 Budesonide/ INHALATION 06/14/25 19:59 2 each Glycopyrrolate/ Q12HRT PRASANTH Administration Formoterol Fumarate 160 Mcg-9 Mcg-4.8 Mcg...) Non-Formulary ( 0 each 05/15/25 20:00 05/18/25 07:47 Ensifentrine 3 Mg/2. INHALATION 06/14/25 19:59 3 each 5 Ml Inhalation Q12HRT PRASANTH Administration Ampul For Nebulization) Ondansetron HCl 4 mg 05/14/25 16:52 05/17/25 20:33 Ondansetron Inj 4 Mg/2 Ml Vial IV PUSH 4 mg Q4H PRN Administration Nausea Oxycodone HCl 5 mg 05/14/25 20:06 05/18/25 06:35 Oxycodone Hcl (*Crx) 5 Mg Tab Ir PO 5 mg Q4H PRN Administration Pain Rated 5 or Less Oxycodone HCl 10 mg 05/14/25 20:06 Oxycodone Hcl (*Crx) 5 Mg Tab Ir PO Q4H PRN Pain Rated 6 or Greater Polyethylene Glycol 17 gm 05/16/25 09:00 05/18/25 08:28 Polyethylene Glycol 3350 17 Gm Powd.Pack PO 17 gm QAM PRASANTH Administration Senna/Docusate Sodium 2 tab 05/15/25 17:00 05/18/25 08:28 Senna/Docusate Sodium Tablet PO 2 tab BID PRASANTH Administration Radiology Results: ITS Impressions Femur X-Ray 05/14/25 14:32 Impression: 1: Displaced right femoral intertrochanteric fracture with varus angulation. Hip/Pelvis X-Ray 05/14/25 14:32 Impression: 1: Displaced right femoral intertrochanteric fracture with varus angulation. Chest X-Ray 05/14/25 14:34 Impression: 1: No acute cardiopulmonary disease. Intraoperative X-Ray 05/16/25 11:34 Impression: 1: Near-anatomic alignment of right femoral intertrochanteric fracture status post reduction with an IT nail. Labs Labs: Laboratory Results - last 24 hr 05/17/25 05/18/25 05/18/25 20:26 04:18 12:23 WBC 6.7 RBC 2.49 L Hgb 7.1 L Hct 24.5 L MCV 98.4 MCH 28.5 MCHC 29.0 L RDW 14.6 H Plt Count 126 L MPV 11.9 H Sodium 136 L Potassium 4.5 Chloride 97 L Carbon Dioxide > 40 H Anion Gap BUN 22 H Creatinine 0.60 L Estim Creat Clear Calc 53 Estimated GFR > 60 Glucose 104 POC Capillary Glucose 124 H Calcium 7.8 L Magnesium 2.4 H Crossmatch See Detail Quality VTE Prophylaxis VTE prophylaxis: mechanical ordered
[2025-05-18] MEDS: SODIUM CHLORIDE 0.9% IV 250 ML 30 ML IV CONT (13:27)
[2025-05-18] MEDS: ATORVASTATIN 40 MG TABLET 80 MG PO (20:34)
[2025-05-19] VITALS (12 sets, daily range): BP systolic 121–137; BP diastolic 53–56; PULSE 61–86; RESP 16; TEMP 36.1–36.7; O2SAT 93–100
[2025-05-19] MEDS: ACETAMINOPHEN 325 MG TABLET 650 MG PO (02:02)
[2025-05-19 05:11] LABS: Hematocrit 30.6 % (37.0-47.0); Hemoglobin 9.3 g/dL (12.0-15.0); Immature Platelet Fraction Pct 10.0 % (0.9-11.2); Mean Corpuscular HGB Conc 30.4 g/dl (32-36); Mean Corpuscular Hemoglobin 29.4 pg (26-34); Mean Corpuscular Volume 96.8 fl (80-100); Platelet Count Result 138 k/mm3 (150-375); Red Blood Count 3.16 M/mm3 (4.2-5.4); White Blood Count 6.9 K/mm3 (4.5-10.0)
[2025-05-19 05:33] LABS: Blood Urea Nitrogen 23 mg/dL (7-17); Calcium 8.3 mg/dL (8.4-10.2); Chloride 96 mmol/L (98-107); Estimated CRCL calculation 56 ml/min; Estimated Glomerular Filt Rate > 60; Glucose 90 mg/dL (65-110); Magnesium 2.4 mg/dL (1.6-2.3); Potassium 4.6 mmol/L (3.4-5.0); Sodium 134 mmol/L (137-145)
[2025-05-19 05:35] LABS: Carbon Dioxide > 40 mmol/L (22-30)
[2025-05-19] MEDS: ASPIRIN 81 MG ENTERIC TABLET PO (08:41)
[2025-05-19] MEDS: KETOROLAC 15 MG/ML VIAL (*BKC) IV PUSH (08:41)
[2025-05-19] MEDS: buPROPion HCL XL (24 HR) 150 MG TABCR 300 MG PO (08:41)
[2025-05-19] MEDS: SENNA/DOCUSATE SODIUM TABLET 2 TAB PO ×2 (08:41→17:23)
[2025-05-19] MEDS: FERROUS SULFATE 325 MG TABLET DR PO (08:41)
[2025-05-19] MEDS: ONDANSETRON INJ 4 MG/2 ML VIAL IV PUSH (08:45)
[2025-05-19] MEDS: BUDESONIDE INHALATION (09:36)
[2025-05-19] MEDS: [UNRECOGNIZED DRUG - OTHER] INHALATION (09:36)
[2025-05-19] MEDS: GLYCOPYRROLATE INHALATION (09:36)
[2025-05-19] MEDS: FORMOTEROL FUMARATE INHALATION (09:36)
[2025-05-19] MEDS: ENSIFENTRINE INHALATION (09:37)
[2025-05-19] MEDS: BISACODYL 10 MG SUPPOSITORY RECTAL (13:13)
[2025-05-19] MEDS: oxyCODONE HCL (*CRX) 5 MG TAB IR PO (17:23)
[2025-05-19] MEDS: ATORVASTATIN 40 MG TABLET 80 MG PO (21:01)
[2025-05-20] MEDS: oxyCODONE HCL (*CRX) 5 MG TAB IR 10 MG PO (01:06)
[2025-05-20 05:44] LABS: Hematocrit 32.3 % (37.0-47.0); Hemoglobin 9.6 g/dL (12.0-15.0); Mean Corpuscular HGB Conc 29.7 g/dl (32-36); Mean Corpuscular Hemoglobin 29.1 pg (26-34); Mean Corpuscular Volume 97.9 fl (80-100); Platelet Count Result 182 k/mm3 (150-375); Red Blood Count 3.30 M/mm3 (4.2-5.4); White Blood Count 6.1 K/mm3 (4.5-10.0)
[2025-05-20 06:06] LABS: Blood Urea Nitrogen 16 mg/dL (7-17); Calcium 8.5 mg/dL (8.4-10.2); Carbon Dioxide > 40 mmol/L (22-30); Chloride 95 mmol/L (98-107); Estimated CRCL calculation 55 ml/min; Estimated Glomerular Filt Rate > 60; Glucose 85 mg/dL (65-110); Magnesium 2.3 mg/dL (1.6-2.3); Potassium 4.9 mmol/L (3.4-5.0); Sodium 137 mmol/L (137-145)
[2025-05-20 07:00] VITALS: BP 127/54; PULSE 75; RESP 16; TEMP 36.5; O2SAT 92
[2025-05-20] MEDS: BUDESONIDE INHALATION (09:37)
[2025-05-20] MEDS: FORMOTEROL FUMARATE INHALATION (09:37)
[2025-05-20] MEDS: ENSIFENTRINE INHALATION (09:37)
[2025-05-20] MEDS: [UNRECOGNIZED DRUG - OTHER] INHALATION (09:37)
[2025-05-20] MEDS: GLYCOPYRROLATE INHALATION (09:37)
[2025-05-20 09:38] VITALS: O2SAT 94
[2025-05-20 09:56] VITALS: O2SAT 94
[2025-05-20] MEDS: FERROUS SULFATE 325 MG TABLET DR PO (09:56)
[2025-05-20] MEDS: SENNA/DOCUSATE SODIUM TABLET 2 TAB PO (09:56)
[2025-05-20] MEDS: buPROPion HCL XL (24 HR) 150 MG TABCR 300 MG PO (09:56)
[2025-05-20 09:57] VITALS: PULSE 75
[2025-05-20] MEDS: ASPIRIN 81 MG ENTERIC TABLET PO (09:57)
[2025-05-20] MEDS: ACETAMINOPHEN 325 MG TABLET 650 MG PO (14:04)
[2025-05-20 15:08] VITALS: BP 107/57; PULSE 82; RESP 18; TEMP 36.4; O2SAT 100
--- NOTE | 2025-05-20 15:15 | P.DS_ITS ---
DS: Admitting Diagnosis Discharge Date 05/20/25 Admitting Diagnosis Fall with hip pain DS: Discharge Diagnosis Discharge Diagnosis (1) Fall from ground level: Code(s): W18.30XA - Fall on same level, unspecified, initial encounter Status: Acute Assessment and Plan: PT and OT after surgery Urine is negative for infection (2) Closed intertrochanteric fracture of femur: Qualifiers: Encounter type: initial encounter Fracture alignment: displaced Laterality: right Qualified Code(s): S72.141A - Displaced intertrochanteric fracture of right femur, initial encounter for closed fracture Code(s): S72.143A - Displaced intertrochanteric fracture of unspecified femur, initial encounter for closed fracture Status: Acute Assessment and Plan: Orthopedics consulted Plan for OR tomorrow morning NPO status with meds Pain management bowel protocol (3) CAD (coronary artery disease): Qualifiers: Coronary Disease-Associated Artery/Lesion type: unspecified vessel or lesion type [place] vs. transplanted heart: [place] heart Associated angina: without angina Qualified Code(s): I25.10 - Atherosclerotic heart disease of [place] coronary artery without angina pectoris Code(s): I25.10 - Atherosclerotic heart disease of [place] coronary artery without angina pectoris Status: Acute Assessment and Plan: Continue aspirin, Lipitor, and Coreg Telemetry monitoring (4) Chronic hypoxic respiratory failure, on home oxygen therapy: Code(s): J96.11 - Chronic respiratory failure with hypoxia; Z99.81 - Dependence on supplemental oxygen Assessment and Plan: ABG shows the patient is compensated however she is also over oxygen needed will decrease home O2 from 4 L to 2 L Home meds restarted (5) Depression: Qualifiers: Depression Type: unspecified Qualified Code(s): F32.9 - Major depressive disorder, single episode, unspecified Code(s): F32.9 - Major depressive disorder, single episode, unspecified Status: Acute Assessment and Plan: Continue Wellbutrin Plan patient with fall, x-ray showed displaced right femoral intertrochanteric fracture with varus angulation. patient was seen by Dr. Burch, an orthopedic surgeon, and patient had ORIF on 05/15 POD#3, patient stats feels much better compared to when she arrived, sitting down in the bed, today patient walk with the PT, was not as short of breath, and patient is encourage to increase calorie intake to help heal the wound and more energy to work with PT. patient has agreed. today patient ate her whole, lunch and drank protein shake, again was able to walk with PT, today patient Hgb is 7.1 compared to 10.3 when he arrived, most likely due to acute lose during surgery and some hemodilution, will give 1 units of PRBC, patient will benefit going acute rehab as patient has severe COPD will need close monitoring by an MD. DS: Summary Hospital Course Hospital Course: patient with fall, x-ray showed displaced right femoral intertrochanteric fracture with varus angulation. patient was seen by Dr. Burch, an orthopedic surgeon, and patient had ORIF on 05/15 POD#3, patient stats feels much better compared to when she arrived, sitting down in the bed, today patient walk with the PT, was not as short of breath, and patient is encourage to increase calorie intake to help heal the wound and more energy to work with PT. patient has agreed. today patient ate her whole, lunch and drank protein shake, again was able to walk with PT, today patient Hgb is 7.1 compared to 10.3 when he arrived, most likely due to acute lose during surgery and some hemodilution, will give 1 units of PRBC, patient will benefit going acute rehab as patient has severe COPD will need close monitoring by an MD. Patient is clinically stable, will discharge patient to inpatient acute rehab. Time Spent with Patient Time attestation: Total time spent providing and/or coordinating discharge services: Exam Narrative: Patient is comfortable, NAD HEENT: eyes are clear and none icteric LUNGS:CTA HEART: RR S1S2 ABD: BS+, Soft and nontender Lower extremities: no edema SKIN: nonjaundiced Neuro: grossly intact. DS: Data Data Completed and Pending Labs on day of discharge: Labs from last 24 hours 05/20/25 04:53 WBC 6.1 RBC 3.30 L Hgb 9.6 L Hct 32.3 L MCV 97.9 MCH 29.1 MCHC 29.7 L RDW 14.4 Plt Count 182 MPV 11.6 H Sodium 137 Potassium 4.9 Chloride 95 L Carbon Dioxide > 40 H Anion Gap BUN 16 Creatinine 0.57 L Estim Creat Clear Calc 55 Estimated GFR > 60 Glucose 85 Calcium 8.5 Magnesium 2.3 Discharge Plan Discharge Attending physician on discharge: Dior Woodruff Consulting providers: Hermilo Burch; Mir Rodriguez; Jose Ritchie; Angelina Golden; Osiel Sanches; Dagoberto Shelton Discharging Clinician: Dior Woodruff Patient Disposition: Inpatient Rehab Facility Activity: as tolerated Diet: heart healthy Discharge Instructions: patient is being discharged to [facility] Patient Language: Guatemalan Follow-up/Referrals: Sandy Taylor NP [Primary Care Provider] - Hermilo Burch MD [Physician] - Discharge Medications: New sennosides-docusate sodium [Senokot-S] 8.6-50 mg Tablet 2 tab-cap PO BID Qty: 30 0RF polyethylene glycol 3350 [Miralax] 17 gram Powder In Packet 17 g PO QAM Qty: 14 0RF Continued vitamin B complex [B Complex-Vitamin B12] Tablet 1 tablet PO DAILY levalbuterol HCl 1.25 mg/3 mL solution for nebulization See Rx Instructions .ROUTE .COMPLEX Qty: 750 2RF Dose Instruction: USE 1 VIAL VIA NEBULIZER THREE TIMES DAILY NEEDED FOR SHORTNESS OF BREATH OR WHEEZING Rx Instructions: USE 1 VIAL VIA NEBULIZER THREE TIMES DAILY NEEDED FOR SHORTNESS OF BREATH OR WHEEZING bupropion HCl 300 mg tablet extended release 24 hr 300 mg PO QAM Qty: 90 2RF Ohtuvayre 3 mg/2.5 mL suspension for nebulization 2.5 ml inhalation QAM AND QPM Qty: 150 11RF Breztri Aerosphere 160-9-4.8 mcg/actuation HFA aerosol inhaler 2 inh inhalation QAM AND QPM Qty: 10.7 11RF Rx Instructions: Rinse mouth and spit after each use. ferrous sulfate 325 mg (65 mg iron) tablet 325 mg PO DAILY Qty: 90 0RF No Action albuterol sulfate 90 mcg/actuation HFA aerosol inhaler See Rx Instructions .ROUTE .COMPLEX Qty: 25.5 2RF Dose Instruction: INHALE 1 TO 2 PUFFS BY MOUTH EVERY 4 TO 6 HOURS NEEDED FOR WHEEZING Rx Instructions: INHALE 1 TO 2 PUFFS BY MOUTH EVERY 4 TO 6 HOURS NEEDED FOR WHEEZING atorvastatin 80 mg tablet 80 mg PO DAILY Qty: 30 0RF carvedilol 12.5 mg tablet 6.25 mg PO Q12H Qty: 30 0RF Rx Instructions: must administer with a meal/food hydrocodone-acetaminophen 5-325 mg tablet 1 tablet PO BID PRN (Reason: pain) Qty: 15 0RF aspirin [Adult Aspirin Regimen] 81 mg tablet,delayed release (DR/EC) 81 mg PO DAILY Qty: 30 0RF Date of admission: 05/14/25 20:27 Primary Care Provider: Sandy Taylor Admitting Provider: Dior Woodruff Attending physician on admission: Dior Woodruff Condition: Stable
== END 2025-05-20 18:00 | DRG 481 ==
LOC: ANHED 18:02 → ANH2MED 18:06
PROVIDERS: Nurse Practitioner Gerontology; Orthopaedic Surgery; Admitting Provider Family Medicine; Emergency Provider Physician Assistant; PCP Nurse Practitioner Family; Visit Provider Family Medicine
PROC: 0QS636Z Reposition Right Upper Femur with Intramedullary Internal Fixation Device, Percutaneous Approach (ICD-10-PCS; CPT 27245; principal; 2025-05-15 08:00)
DX: S72.141A Displaced intertrochanteric fracture of right femur, initial encounter for closed fracture (principal); J96.11 Chronic respiratory failure with hypoxia; W18.30XA Fall on same level, unspecified, initial encounter; J44.9 Chronic obstructive pulmonary disease, unspecified; I25.10 Atherosclerotic heart disease of native coronary artery without angina pectoris; I10 Essential (primary) hypertension; Z95.5 Presence of coronary angioplasty implant and graft; E78.5 Hyperlipidemia, unspecified; F32.9 Major depressive disorder, single episode, unspecified; I25.2 Old myocardial infarction; Z99.81 Dependence on supplemental oxygen; Z87.891 Personal history of nicotine dependence; Z79.82 Long term (current) use of aspirin
CPT/HCPCS: 36415; 36430; 36600; 71045; 73502; 73552; 74018; 80048; 80053; 81001; 82375; 82805; 82948; 83050; 83735; 84484; 85018; 85025; 85027; 85055; 85610; 85730; 86850; 86900; 86901; 86923; 93005; 94640; 96374; 96375; 97110; 97161; 97165; 97530; 97535; 99199; 99285; A9270; C1713; G0378; J0690; J1100; J1885; J2003; J2405; J2704; J3010; J7050; J7120; P9016

== ENCOUNTER 2025-07-24 14:25 | Emergency (ER) | payer MEDICARE, OTHER, SELFPAY ==
[2025-07-24] VITALS (7 sets, daily range): BP systolic 53–214; BP diastolic 36–141; PULSE 122–140; RESP 16–30; TEMP 36.8; O2SAT 68–100
--- NOTE | ~2025-07-24 | XR_ITS ---
EXAMINATION: XR chest 1V portable COMPARISON: No comparisons available. HISTORY: Shortness of breath FINDINGS: COPD changes with large left upper and left lower lobe infiltrates. No pneumothorax. Heart is normal size. Calcified mediastinal lymph nodes. Bony thorax no acute abnormality. Miscellaneous: None Impression: Left-sided pneumonia. Reviewed, dictated and finalized at location P. Impression: Left-sided pneumonia.
--- NOTE | 2025-07-24 14:28 | ED_ITS ---
HPI - SOB/Dyspnea General Chief Complaint: Shortness of Breath/Dyspnea Stated Complaint: SOB Time Seen by Provider: 07/24/25 14:27 Source: patient and EMS Mode of arrival: EMS Limitations: clinical condition History of Present Illness HPI Narrative: 70 years old white female came from by ambulance with shortness of breath. History of COPD on chronic 4 L oxygen by nasal cannula. Productive cough of brownish sputum, No fever or chills or nausea or vomiting or chest pain patient had recent hip surgery 2 weeks ago and is not on any blood thinners Related Data Home Medications ?Medication ?Instructions ?Recorded ?Confirmed ?Last Taken ?Type vitamin B complex (B 1 tablet PO DAILY 12/23/19 0 07/22/25 Unknown History Complex-Vitamin B12 tablet) Allergies Allergy/AdvReac Type Severity Reaction Status Date / Time No Known Allergies Allergy Verified 07/24/25 15:41 Review of Systems 2 Review of Systems: ROS unobtainable: Yes unobtainable due to medical condition PMFSH Past Medical History Medical History Chronic respiratory failure Post herpetic neuralgia Neck and shoulder pain Depression Essential (primary) hypertension Dependence on continuous supplemental oxygen Hx of myocardial infarction stent placement - Follows with Dr King Glenroy CRUZ cardiology Lung nodule Osteoporosis HLD (hyperlipidemia) CAD (coronary artery disease) Chronic obstructive pulmonary disease Hypoxemia Former smoker Quit smoking in 2009, 30 pack years. Family History Family History Sibling Family history of cardiovascular disease Mother Family history of cardiovascular disease, Onset Age: 71 Family history of dementia, Onset Age: 71 Social History Social History Smoking packs per day: 1 Smoking cigarettes per day: 20.0 Years smoked: 30 Smoking pack-years: 30.00 Smoking status: Former smoker Tobacco type: cigarettes Second hand tobacco smoke exposure: Yes Smoking end date: 05/21/10 Alcohol intake: never Substance use: never Substance use type: does not use Do You Feel Safe in your Home?: Yes Lack of Transportation: No Lack of Food: Never True Current Housing: I Have Housing Concerned About Future Housing: No Difficulty Paying Gas/Electric Bills: No Difficulty Paying for Meds: No Currently Unemployed: No Education: Associate Degree Difficulty w/ Childcare or Family Care: No Spiritual care concerns: No Exam 2 Narrative: General appearance: Well-developed, malnourished, 100% rebreather on, lethargic Skin: Normal color scattered ecchymosis Head: Normocephalic, nontraumatic Eyes: Clear conjunctiva ENT: Oropharynx normal, ears normal, nose normal Neck: Supple, nontender Chest and respiratory: Marked diminution of air entry bilaterally Heart: Tachycardia Abdomen: Soft, nontender, no organomegaly, quiet bowel sounds Vascular: Normal peripheral pulses, normal capillary refill. Neurologic: Unable to finish 1 sentence because of the severity of shortness of breath Course Vital Signs Vital signs: Vital Signs Pulse Rate 122 H 07/24/25 14:27 Respiratory Rate 20 07/24/25 14:27 Blood Pressure 214/141 H 07/24/25 14:27 Pulse Oximetry 68 L 07/24/25 14:27 Oxygen Delivery Nasal Cannula 07/24/25 14:27 Oxygen Flow Rate 4 07/24/25 14:27 Temperature 36.8 C 07/24/25 14:33 Pulse Rate 140 H 07/24/25 15:32 Respiratory Rate 30 H 07/24/25 15:32 Blood Pressure 93/55 L 07/24/25 14:33 Pulse Oximetry 72 L 07/24/25 15:32 Oxygen Delivery BiPAP 07/24/25 15:49 Oxygen Flow Rate 15 07/24/25 14:33 Fraction of Inspired Oxygen 100 07/24/25 14:38 MDM - SOB/Dyspnea MDM Narrative Medical decision making narrative: Patient came with severe shortness of breath, history of COPD Vital signs showing blood pressure 214/141 heart rate 122, saturation 68% on 100% non-rebreather Physical examination showing debilitated, malnourished patient with severe labored breathing, lethargic, unable to talk Differential diagnosis acute/chronic hypoxic, hypercapnic respiratory failure, pneumonia, pleural effusion, congestive heart failure, pneumothorax, pulmonary embolism Blood workup today includes CBC, CMP, troponin, proBNP, blood culture, CRP showed sodium of 130, BUN 46, creatinine 1.3, SITE PROJECT MANAGER [id number]. Chest x-ray showed left-sided pneumonia. Diagnosis: Acute/chronic hypoxic respiratory failure, pneumonia, CHRIST, comfort measures only Patient's family including her and her daughter and grand kids decided to change code status to comfort measures only. No more further blood workup or imaging or treatment. Just make the patient comfortable including IV fluid, oxygen, morphine and Ativan as needed The and patient's daughter decided to remove the BiPAP machine and replace it with Venti mask. Differential Diagnosis Differential diagnosis: Likely other (As above) Medical Records Attestation: I reviewed the patient's medical records. Lab Data Attestation: I reviewed the patient's lab results. 07/24/25 14:52 07/24/25 14:52 Labs: Lab Results 07/24/25 07/24/25 Range/Units 14:52 14:52 WBC 5.3 (4.5-10.0) K/mm3 RBC 4.91 (4.2-5.4) M/mm3 Hgb 13.9 D (12.0-15.0) g/dL Hct 47.0 (37.0-47.0) % MCV 95.7 (80-100) fl MCH 28.3 (26-34) pg MCHC 29.6 L (32-36) g/dl RDW 12.8 (11.5-14.5) % Plt Count 171 (150-375) k/mm3 MPV 11.2 H (7.4-10.4) fl Immature Gran % (Auto) Not Reportable Neut % (Auto) Not Reportable Lymph % (Auto) Not Reportable Morris % (Auto) Not Reportable Eos % (Auto) Not Reportable Baso % (Auto) Not Reportable Lymph # (Auto) Not Reportable Morris # (Auto) Not Reportable Eos # (Auto) Not Reportable Baso # (Auto) Not Reportable Abs Immat Gran (auto) Not Reportable Absolute Neuts (auto) Not Reportable Absolute Nucleated RBC Not Reportable Total Counted 100 Neutrophils % (Manual) 65 (46-73) % Band Neutrophils % 13 H (0-6) % Lymphocytes % (Manual) 14.0 L (18-44) % Monocytes % (Manual) 8 (3-9) % Nucleated RBC % Not Reportable Abs Neuts (Manual) 4.13 (1.3-6.7) K/mm3 Abs Lymphs (Manual) 0.74 L (1.1-4.5) K/mm3 Abs Monocytes (Manual) 0.42 (0.1-0.90) K/mm3 Platelet Estimate Adequate (Adequate) Clumped Platelets Present Hypochromasia 1+ Schistocytes None seen PT 12.4 (11.1-14.7) Seconds INR 0.9 APTT 27.2 (22.3-36.8) Seconds Sodium 130 L (137-145) mmol/L Potassium 4.8 (3.4-5.0) mmol/L Chloride 89 L (98-107) mmol/L Carbon Dioxide 38 H (22-30) mmol/L Anion Gap 3 L (4-12) mmol/L BUN 46 H D (7-17) mg/dL Creatinine 1.39 H (0.7-1.0) mg/dL Estim Creat Clear Calc Not Reportable Estimated GFR 37 L (59 - ) Glucose 72 (65-110) mg/dL Calcium 8.4 (8.4-10.2) mg/dL Magnesium 2.3 (1.6-2.3) mg/dL Total Bilirubin 0.6 (0.2-1.3) mg/dL AST 29 (14-36) U/L ALT 20 (6-35) U/L Alkaline Phosphatase 108 (38-126) U/L Troponin I < 0.012 (0.000-0.034) ng/mL NT-Pro-B Natriuret Pep Cancelled 5940 H Total Protein 7.2 (6.3-8.2) g/dL Albumin 3.5 (3.5-5.1) g/dL Imaging Data Radiologist's impression: Impressions Chest X-Ray 07/24/25 15:19 Impression: Left-sided pneumonia. ECG Data EKG #1: Attestation: I personally reviewed and interpreted this ECG as follows: ECG completion date: 07/24/25 Interpretation: Sinus tachycardia at 140 beats per minute, abnormal EKG, compared to EKG on May 14, 2025 sinus rhythm no longer present Critical Care Time Critical Care Time Critical Care Time: Yes Total Critical Care Time: 30 Discharge Plan Discharge Clinical Impression: Acute and chronic respiratory failure with hypoxia, Pneumonia, CHRIST (acute kidney injury), Comfort measures only status Patient Disposition: Still a Patient Condition: Critical Patient Language: Belizean Prescriptions: No Action vitamin B complex [B Complex-Vitamin B12] Tablet 1 tablet PO DAILY levalbuterol HCl 1.25 mg/3 mL solution for nebulization See Rx Instructions .ROUTE .COMPLEX Qty: 750 2RF Dose Instruction: USE 1 VIAL VIA NEBULIZER THREE TIMES DAILY NEEDED FOR SHORTNESS OF BREATH OR WHEEZING Rx Instructions: USE 1 VIAL VIA NEBULIZER THREE TIMES DAILY NEEDED FOR SHORTNESS OF BREATH OR WHEEZING prednisone 10 mg tablet 10 mg PO DIRECTED Qty: 30 0RF Rx Instructions: Take 4 tablets by mouth daily for 3 days, then 3 tablets for 3 days, 2 tablets for 3 days, 1 tablet for 3 days azithromycin 250 mg tablet See Rx Instructions PO .COMPLEX Qty: 6 0RF Rx Instructions: For 250 mg dose pack: take 500 mg today (day 1), then 250 mg for 4 days (days 2-5) PO sennosides-docusate sodium [Senokot-S] 8.6-50 mg Tablet 2 tab-cap PO BID Qty: 30 0RF polyethylene glycol 3350 [Miralax] 17 gram Powder In Packet 17 g PO QAM Qty: 14 0RF Ohtuvayre 3 mg/2.5 mL suspension for nebulization 2.5 ml inhalation QAM AND QPM Qty: 150 11RF ferrous sulfate 325 mg (65 mg iron) tablet 325 mg PO DAILY Qty: 90 0RF bupropion HCl 300 mg tablet extended release 24 hr 300 mg PO QAM Qty: 90 1RF hydrocodone-acetaminophen 5-325 mg tablet 1 tablet PO BID PRN (Reason: pain) Qty: 20 0RF Breztri Aerosphere 160-9-4.8 mcg/actuation HFA aerosol inhaler 2 inh inhalation QAM AND QPM Qty: 10.7 11RF Rx Instructions: Rinse mouth and spit after each use. ondansetron 4 mg tablet,disintegrating 4 mg PO Q6H PRN (Reason: nausea and vomiting) Qty: 20 0RF albuterol sulfate 90 mcg/actuation HFA aerosol inhaler See Rx Instructions .ROUTE .COMPLEX Qty: 25.5 2RF Dose Instruction: INHALE 1 TO 2 PUFFS BY MOUTH EVERY 4 TO 6 HOURS NEEDED FOR WHEEZING Rx Instructions: INHALE 1 TO 2 PUFFS BY MOUTH EVERY 4 TO 6 HOURS NEEDED FOR WHEEZING atorvastatin 80 mg tablet 80 mg PO DAILY Qty: 30 0RF carvedilol 12.5 mg tablet 6.25 mg PO Q12H Qty: 30 0RF Rx Instructions: must administer with a meal/food aspirin [Adult Aspirin Regimen] 81 mg tablet,delayed release (DR/EC) 81 mg PO DAILY Qty: 30 0RF Follow-up/Referrals: Sandy Taylor NP [Primary Care Provider, Family Practice]
--- OUTSIDE RECORDS SUMMARY | 2025-07-24 14:33 | XMS_ITS | Clinical Summary ---
Author Organization [facility] [address] [place] [id number] Care Team Providers Care Corset Fitter Name Role Phone Gianna Cruz MD Primary [...] needed. Assessment & Plan (11/08/2023 2:54 PM ELECTRONIC SEMICONDUCTOR PROCESSOR): Controlled with carvedilol and lisinopril. No changes recommended. Assessment & Plan (04/16/2023 3:20 PM CDT): Controlled. Continue carvedilol and lisinopril. Chronic obstructive pulmonary disease 11/14/2021 Assessment & Plan (11/14/2021 2:08 PM ELECTRONIC SEMICONDUCTOR PROCESSOR): Stable on home O2. Hyperlipidemia 11/14/2021 Assessment & Plan (05/04/2024 2:05 PM CDT): Continue high-intensity statin, atorvastatin 80 mg daily. Assessment & Plan (11/08/2023 2:54 PM ELECTRONIC SEMICONDUCTOR PROCESSOR): Continue high-intensity statin, atorvastatin 80 mg daily Assessment & Plan (04/16/2023 3:18 PM CDT): Stable, continue atorvastatin Assessment & Plan (09/14/2022 3:31 PM ELECTRONIC SEMICONDUCTOR PROCESSOR): Continue atorvastatin. Assessment & Plan (11/14/2021 2:08 PM ELECTRONIC SEMICONDUCTOR PROCESSOR): Check Lipids, continue atorvastatin Coronary artery disease invo lving douglas coronary artery of douglas heart without angina pectoris 05/17/2020 Assessment & Plan (05/04/2024 2:05 PM CDT): The patient remains asymptomatic. Continue aspirin and carvedilol. Assessment & Plan (11/08/2023 2:54 PM ELECTRONIC SEMICONDUCTOR PROCESSOR): Doing well. Continue aspirin and carvedilol. Assessment & Plan (04/16/2023 3:18 PM CDT): No angina, continue ASA and carvedilol. Assessment & Plan (09/14/2022 3:31 PM ELECTRONIC SEMICONDUCTOR PROCESSOR): Remains asymptomatic. Continue aspirin. Assessment & Plan (11/14/2021 2:08 PM ELECTRONIC SEMICONDUCTOR PROCESSOR): Remains asymptomatic now a decade post stent. Assessment & Plan (05/16/2021 1:30 PM CDT): Cardiac stable. No changes recommended History of percutaneous coronary intervention Encounters Date Type Department Care Team Description 05/14/2025 1:08 PM CDT - 05/14/2025 11:59 PM CDT Hospital Encounter [facility] Emergency, Room R Discharge Disposition: Discharge to home or self care from Last 3 Months Immunizations Immunization Administration Dates Next Due Pfizer SARS-CoV-2 Monovalent Vaccination (12+ Yrs) PURPLE 01/10/2021,12/20/2020 Social History Tobacco Use Types Packs/Day Years Used Date Smoking Tobacco: Former Smokeless Tobacco: Never Tobacco Cessation:Counseling Given: Not Answered Comments Unknown Sex and Gender Information Value Date Recorded Sex Assigned at Not on file Legal Sex Female 11:02 AM ELECTRONIC SEMICONDUCTOR PROCESSOR Gender Identity Not on file Sexual Orientation [...] Height 152.4 cm (5') 11/08/2023 2:01 PM ELECTRONIC SEMICONDUCTOR PROCESSOR Body Mass Index 21.68 11/08/2023 2:01 PM ELECTRONIC SEMICONDUCTOR PROCESSOR Plan of Treatment Health Maintenance Due Date [...] Tdap) 10/28/2023 10/28/2013 Covid-19 Vaccine (3 - 2024-2 6 season) 2025 01/10/2021, 12/20/2020 Influenza Vaccine (#1) 2025 9, 08/25/2018, 08/30/2016, Additional history exists Insurance MEDICARE [facility] Address: [address] [address] [place] [address] Standard Treasury [facility] INDEMNITY [place] MEDICARE [facility] INDEMNITY [place] [facility] Treasury Care Teams Corset Fitter Relationship Specialty Start Date End Date Gianna Cruz MD PCP - General Family Practice 05/16/21
--- NOTE | 2025-07-24 14:40 | ECG_ITS ---
Test Date: 2025-07-24 14:52:57 Measurements Intervals [place] Rate: 140 P: 93 TN: 157 QRS: 29 QRSD: 78 T: 75 QT: 333 QTc: 509 Interpretive Statements BASELINE ARTIFACT SINUS TACHYCARDIA Electronically Signed On 07-25-2025 20:44:17 CDT by Stephan Nuno D.O
[2025-07-24] MEDS: ALBUTEROL SULFATE NEB 2.5 MG/3 ML INH 10 MG INHALATION (14:56)
[2025-07-24] MEDS: IPRATROPIUM BR 0.02% INH SOLN 0.5 MG/2.5 ML VIAL INHALATION (14:58)
[2025-07-24 15:00] LABS: Hematocrit 47.0 % (37.0-47.0); Hemoglobin 13.9 g/dL (12.0-15.0); Mean Corpuscular HGB Conc 29.6 g/dl (32-36); Mean Corpuscular Hemoglobin 28.3 pg (26-34); Mean Corpuscular Volume 95.7 fl (80-100); Platelet Count Result 171 k/mm3 (150-375); Red Blood Count 4.91 M/mm3 (4.2-5.4); White Blood Count 5.3 K/mm3 (4.5-10.0)
--- NOTE | 2025-07-24 15:09 | PC.NURSE ---
Pt arrived to ED on 4L O2 which is her baseline. At the time of her arrival, we attempted to titrate up to 6L since the pt was satting at 68%. It was decided to place the pt on a non-rebreather @15L. This allowed the pts O2 to go up to the mid 90s for a while before dropping down to the low 80s again. Repsiratory was called to place the pt on BiPAP. Pt is currently on BiPAP w/ FiO2 of 100%. Currently O2 saturation is unobtainable because of pt distress.
[2025-07-24 15:17] LABS: Alanine Aminotransferase 20 U/L (6-35); Albumin Level 3.5 g/dL (3.5-5.1); Alkaline Phosphatase 108 U/L (38-126); Anion Gap 3 mmol/L (4-12); Aspartate Amino Transferase 29 U/L (14-36); Bilirubin,Total 0.6 mg/dL (0.2-1.3); Blood Urea Nitrogen 46 mg/dL (7-17); Calcium 8.4 mg/dL (8.4-10.2); Carbon Dioxide 38 mmol/L (22-30); Chloride 89 mmol/L (98-107); Estimated Glomerular Filt Rate 37; Glucose 72 mg/dL (65-110); Magnesium 2.3 mg/dL (1.6-2.3); Potassium 4.8 mmol/L (3.4-5.0); Sodium 130 mmol/L (137-145); Total Protein 7.2 g/dL (6.3-8.2)
--- NOTE | 2025-07-24 15:19 | PCRCNOTE ---
ABG cancel per MD Morataya
[2025-07-24] MEDS: ONDANSETRON INJ 4 MG/2 ML VIAL IV PUSH (15:20)
[2025-07-24] MEDS: MORPHINE SULFATE (*CRX) 2 MG/ML INJ (15:20)
[2025-07-24 15:22] LABS: INR 0.9; Prothrombin Time 12.4 Seconds (11.1-14.7)
--- NOTE | 2025-07-24 15:22 | PC.NURSE ---
Conversation was had between MD and pt family. It was decided to make the pt DNR and DNI. Attempts to make pt as comfortable as possible have began.
[2025-07-24 15:23] LABS: Partial Thromboplastin Time 27.2 Seconds (22.3-36.8)
[2025-07-24 15:25] LABS: Band Neutrophils Percent 13 % (0-6); Lymphocytes Absolute Manual 0.74 K/mm3 (1.1-4.5); Lymphocytes Percent Manual 14.0 % (18-44); Monocytes Absolute Manual 0.42 K/mm3 (0.1-0.90); Monocytes Percent Manual 8 % (3-9); Neutrophils Absolute Manual 4.13 K/mm3 (1.3-6.7); Neutrophils Percent Manual 65 % (46-73); Total Cells Counted 100
[2025-07-24 15:26] LABS: Hypochromasia 1+; Schistocytes None Seen
[2025-07-24 15:29] LABS: NT Pro B Type Natriuretic Pept 5940 pg/mL (19.9-100); Troponin I < 0.012 ng/mL (0.000-0.034)
[2025-07-24] MEDS: MORPHINE SULFATE (*CRX) 4 MG/ML INJ 2 MG IV PUSH (16:06)
--- NOTE | 2025-07-24 16:10 | PC.NURSE ---
Pt. repeatedly attempting to remove BiPAP mask stating softly get it off. Dr. Morataya at bedside with family. Per Dr. Morataya and family discussion, ok to remove BiPAP. RT at bedside. BiPAP removed. non-rebreather applied at 15L. 3x family members at bedside with pt. Pt. breathing spontaneously. Breathing remains shallow and labored. Pt. will open her eyes to verbal but not speaking at this time.
--- NOTE | 2025-07-24 16:17 | P.HP_ITS ---
H&P: HPI History of Present Illness Date/Time: 07/24/25 16:17 Chief Complaint: Acute respiratory distress Narrative: 70-year-old female past medical history of COPD on 4 L home oxygen, CAD, hyperlipidemia, osteoporosis, [place] with stents, and depression presents the hospital by EMS in acute respiratory distress. Patient presented lethargic on 100% non-rebreather blood pressure being 214/114 with heart rate of 120 to with a pulse ox of 68%. She was placed on BiPAP. Per family the patient is a DNR DNI. On 05/15/2025 patient had ORIF of left femur due to a fall. Checks x-ray showed left-sided pneumonia. Patient continues to be tachycardic, tachypneic, with pressure 53/36 has been does not want a central line on the patient. had decided since patient has severe COPD, and progression of failure to thrive that once the children arrive at the hospital that she will be a comfort measures only patient. Family arrived while she was still in the emergency room, and her code status was changed. BiPAP was taken off. Medications ordered. Review of Systems Review of Systems: ROS unobtainable: Yes unobtainable due to medical condition and unobtainable due to mental status PMFSH Past Medical History Medical History Chronic respiratory failure Post herpetic neuralgia Neck and shoulder pain Depression Essential (primary) hypertension Dependence on continuous supplemental oxygen Hx of myocardial infarction stent placement - Follows with Dr King [place] [facility] cardiology Lung nodule Osteoporosis HLD (hyperlipidemia) CAD (coronary artery disease) Chronic obstructive pulmonary disease Hypoxemia Former smoker Quit smoking in 2009, 30 pack years. Family History Family History Sibling Family history of cardiovascular disease Mother Family history of cardiovascular disease, Onset Age: 71 Family history of dementia, Onset Age: 71 Social History Social History Smoking packs per day: 1 Smoking cigarettes per day: 20.0 Years smoked: 30 Smoking pack-years: 30.00 Smoking status: Former smoker Tobacco type: cigarettes Second hand tobacco smoke exposure: Yes Smoking end date: 05/21/10 Alcohol intake: never Substance use: never Substance use type: does not use Do You Feel Safe in your Home?: Yes Lack of Transportation: No Lack of Food: Never True Current Housing: I Have Housing Concerned About Future Housing: No Difficulty Paying Gas/Electric Bills: No Difficulty Paying for Meds: No Currently Unemployed: No Education: Associate Degree Difficulty w/ Childcare or Family Care: No Spiritual care concerns: No Meds Home Medications and Allergies Home Medications ?Medication ?Instructions ?Recorded ?Confirmed ?Type vitamin B complex (B 1 tablet PO DAILY 12/23/19 0 07/22/25 History Complex-Vitamin B12 tablet) levalbuterol HCl 1.25 mg/3 mL See Rx Instructions .Rou te 07/08/24 07/22/25 Rx solution for nebulization .COMPLEX #750 mL Ohtuvayre 3 mg/2.5 mL suspension 2.5 ml inhalation QAM AND QPM #150 12/21/24 07/22/25 Rx for nebulization (ensifentrine) mL ferrous sulfate 325 mg (65 mg 325 mg PO DAILY #90 tabs 05/07/25 07/22/25 Rx iron) tablet polyethylene glycol 3350 17 gram 17 g PO QAM #14 ea 07/22/25 Rx oral powder packet (Miralax) sennosides 8.6 mg-docusate sodium 2 tab-cap (2 x 8.6-5 0 mg) PO BID 05/20/25 07/22/25 Rx 50 mg tablet (Senokot-S) #30 tabs aspirin 81 mg tablet,delayed 81 mg PO DAILY #30 tabs 0 05/29/25 07/22/25 Rx release (Adult Aspirin Regimen) atorvastatin 80 mg tablet 80 mg PO DAILY #30 tabs 08/0 12/2207/22/25 Rx carvedilol 12.5 mg tablet 6.25 mg (1/2 x 12.5 mg) PO Q 12H 05/29/25 07/22/25 Rx #30 tabs bupropion HCl 300 mg 24 hr tablet, 300 mg PO QAM #90 t abs 06/17/25 07/22/25 Rx extended release hydrocodone 5 mg-acetaminophen 325 1 tablet PO BID PRN pain #20 tabs 07/09/25 07/22/25 Rx mg tablet Breztri Aerosphere 160 2 inh inhalation QAM AND QPM #10.7 07/12/25 07/22/25 Rx mcg-9mcg-4.8mcg/actuation HFA grams aerosol inhaler (kopgecxkvs-qssnjygs-wccscerzby) ondansetron 4 mg disintegrating 4 mg PO Q6H PRN nausea and 07/15/25 07/22/25 Rx tablet vomiting #20 tabs azithromycin 250 mg tablet See Rx Instructions PO .COM PLEX #6 07/22/25 07/22/25 Rx tabs prednisone 10 mg tablet 10 mg PO DIRECTED #30 tab s 07/22/25 07/22/25 Rx albuterol sulfate 90 mcg/actuation See Rx Instructions .Route 07/23/25 Rx aerosol inhaler .COMPLEX #25.5 grams Allergies Allergy/AdvReac Type Severity Reaction Status Date / Time No Known Allergies Allergy Verified 07/24/25 15:41 Vital Signs Vital Signs - 24 hr 07/24/25 14:27 07/24/25 14:33 07/24/25 14:38 Temperature 98.3 F Pulse Rate 122 H 129 H Respiratory Rate 20 30 H Blood Pressure 214/141 H 93/55 L Pulse Oximetry 68 L 98 Oxygen Delivery Nasal Cannula Non-Rebreather Mask BiPAP Oxygen Flow Rate 4 15 Fraction of Inspired Oxygen 100 07/24/25 14:45 07/24/25 14:59 07/24/25 15:32 Temperature Pulse Rate 136 H 139 H 140 H Respiratory Rate 16 28 H 30 H Blood Pressure Pulse Oximetry 72 L Oxygen Delivery BiPAP Oxygen Flow Rate Fraction of Inspired Oxygen 07/24/25 15:49 Temperature Pulse Rate Respiratory Rate Blood Pressure Pulse Oximetry Oxygen Delivery BiPAP Oxygen Flow Rate Fraction of Inspired Oxygen Exam Narrative: General: well appearing, appears stated age. HEENT: normocephalic, atraumatic. Mucous membranes moist. EOMI, PERRLA, bilateral sclera anicteric, no conjunctival injection. Neck supple without JVD, lymphadenopathy, or bruit. Respiratory: clear to ascultation bilaterally. No rales/rhonic/wheezes. Cardiovascular: Regular rate and rhythm, normal S1-S2 upon ascultation. No murmurs, rubs, or clicks. PMI is nondisplaced, capillary refill less than 3 second. Abdomen: Soft, round, no pulsatile masses, nondistended and nontender. No rebound, no guarding. No CVA tenderness, no hepatosplenomegaly. Bowel sounds present to all four quadrants. No high pitch or tinkling sounds, resonant to percussion. Extremities: No cyanosis, clubbing, or edema present. Pulses are palpable 2/2. Active ROM to all four extremities. Neuro: Alert and orientated x 4. PERRLA. Cranial nerves 2-12 intact without focal deficit. Skin: Warm, dry, and intact, without rash, erythema, or lesion. Psych: pleasant, cooperative, normal speech, normal affect, no hallucinations, no dysarthia H&P: Results Labs Labs: Short CBC 07/24/25 Range/Units 14:52 WBC 5.3 (4.5-10.0) K/mm3 Hgb 13.9 D (12.0-15.0) g/dL Hct 47.0 (37.0-47.0) % Plt Count 171 (150-375) k/mm3 BMP 07/24/25 14:52 Sodium 130 L Potassium 4.8 Chloride 89 L Carbon Dioxide 38 H BUN 46 H D Creatinine 1.39 H Glucose 72 Calcium 8.4 Cardiac Enzymes 07/24/25 Range/Units 14:52 Troponin I < 0.012 (0.000-0.034) ng/mL Liver Function 07/24/25 Range/Units 14:52 Total Bilirubin 0.6 (0.2-1.3) mg/dL AST 29 (14-36) U/L ALT 20 (6-35) U/L Alkaline Phosphatase 108 (38-126) U/L Albumin 3.5 (3.5-5.1) g/dL Assessment and Plan Assessment and plan (1) Comfort measures only status: Code(s): Z51.5 - Encounter for palliative care Status: Acute Assessment and Plan: Likely sepsis from with pneumonia with severe hypotension and possible PE after surgery. Has been selected to do comfort care only as patient has severe comorbidities, new pneumonia, CHRIST and failure to thrive Morphine and Valium for agitation and Air hunger Total for fever atropine drops for increased secretion Family at bedside Hospice consult for aIwonam. (2) Acute and chronic respiratory failure with hypoxia: Code(s): J96.21 - Acute and chronic respiratory failure with hypoxia Status: Acute Assessment and Plan: COPD changes with large left upper and left lower lobe infiltrates (3) Pneumonia: Code(s): J18.9 - Pneumonia, unspecified organism Status: Acute (4) Essential (primary) hypertension: Code(s): I10 - Essential (primary) hypertension Status: Chronic (5) CAD (coronary artery disease): Qualifiers: Associated angina: without angina Coronary Disease-Associated Artery/Lesion type: unspecified vessel or lesion type [place] vs. transplanted heart: [place] heart Qualified Code(s): I25.10 - Atherosclerotic heart disease of [place] coronary artery without angina pectoris Code(s): I25.10 - Atherosclerotic heart disease of [place] coronary artery without angina pectoris Status: Acute (6) CHRIST (acute kidney injury): Code(s): N17.9 - Acute kidney failure, unspecified Status: Acute (7) Osteoporosis with pathological fracture: Code(s): M80.00XA - Age-related osteoporosis with current pathological fracture, unspecified site, initial encounter for fracture Status: Acute (8) Chronic obstructive pulmonary disease: Qualifiers: COPD type: unspecified COPD Qualified Code(s): J44.9 - Chronic obstructive pulmonary disease, unspecified Code(s): J44.9 - Chronic obstructive pulmonary disease, unspecified Status: Acute (9) Cachexia: Code(s): R64 - Cachexia Status: Acute (10) Frequent falls: Code(s): R29.6 - Repeated falls Status: Acute (11) Lung nodule: Code(s): R91.1 - Solitary pulmonary nodule Status: Acute (12) Hypotension: Code(s): I95.9 - Hypotension, unspecified Status: Acute Quality If No VTE Prophylaxis Answer both mechanical and pharmacologic: Reason no mechanical VTE proph: medical contraindication Reason no pharmacologic proph: medical contraindication Hospitalist MIPS Advance Care Plan I have confirmed that the patient's Advanced Care Plan is present, code status is documented, or surrogate decision maker is listed in patient medical record.: Yes Medication Reconciliation The patient is not eligible for med reconciliation; the patient is in a emergent medical situation where delaying treatment would jeopardize the patients health.: Yes
--- NOTE | 2025-07-24 16:22 | PC.NURSE ---
David with care coordination at bedside talking with family. Paperwork signed to transition pt. to comfort care.
[2025-07-24] MEDS: SODIUM CHLORIDE 0.9% IV 1,000 ML 100 ML IV CONT (16:45)
--- NOTE | 2025-07-24 16:45 | PC.NURSE ---
Pt. no longer alert to verbal. Pt. will make small movements to readjust her hands. Family remains at bedside. Pt. does not appear to be in any discomfort at this time.
--- NOTE | 2025-07-24 17:48 | PC.NURSE ---
Suctioning performed d/t visible secretions in the oral cavity prior to administration of atropine drops. Pt tolerated suctioning.
--- NOTE | 2025-07-24 17:52 | PC.NURSE ---
Time of called by Dr. Morataya at 1752. Hospitalist notified by
--- NOTE | 2025-07-24 18:12 | PC.NURSE ---
Omar at [facility] contacted.
--- NOTE | 2025-07-24 18:14 | PC.NURSE ---
[phone] number generated at [facility] for patient. Requesting a call back if/when outside salesman releases patient.
--- NOTE | 2025-07-24 18:15 | PC.NURSE ---
Key Holder phoned by this RN. This RN spoke with Aira. Key Holder to come to ER.
--- NOTE | 2025-07-24 19:00 | PC.NURSE ---
Candy Rolling Machine Operator arrived to ER.
--- NOTE | 2025-07-24 19:00 | P.DN_ITS ---
Discharge Summary Date and Time Date of : 07/24/25 Time of : 17:52 Probable Cause of Probable Cause of : Likely sepsis from with pneumonia with severe hypotension and possible PE after surgery. Summary Hospital Course: 70-year-old female past medical history of COPD on 4 L home oxygen, CAD, hyperlipidemia, osteoporosis, [place] with stents, and depression presents the hospital by EMS in acute respiratory distress. Patient presented lethargic on 100% non-rebreather blood pressure being 214/114 with heart rate of 120 to with a pulse ox of 68%. She was placed on BiPAP. Per family the patient is a DNR DNI. On 05/15/2025 patient had ORIF of left femur due to a fall. Checks x-ray showed left-sided pneumonia. Patient continues to be tachycardic, tachypneic, with pressure 53/36 has been does not want a central line on the patient. had decided since patient has severe COPD, and progression of failure to thrive that once the children arrive at the hospital that she will be a comfort measures only patient. Family arrived while she was still in the emergency room, and her code status was changed. BiPAP was taken off and placed 100% non- rebreather. Medications ordered. Family stated the patient has had a extreme decline since her hip surgery. On evaluation the patient is resting comfortably sitting up patient repositioned into more comfortable position. Non-rebreather removed. Family at bedside in tearful. Patient passed about 20 minutes later with family at bedside. Additional Data Family: at bedside Was code activated?: No Provider Requests Autopsy: No Hospice patient?: No
--- NOTE | 2025-07-24 19:13 | PC.NURSE ---
Business Support Professional here and releasing patient. States he will sign cert.
--- NOTE | 2025-07-24 19:32 | PC.NURSE ---
MTS released per general warehouse workerShona. Call placed to [facility] in [place]. States they will be here in 30 minutes.
--- OUTSIDE RECORDS SUMMARY | 2025-07-30 19:00 | XMS_ITS | Clinical Summary ---
Author Organization Unknown Care Team Providers Care Shale Miner Name Role Phone JIA CERAMIC COATER MACHINE, OLIVERIO Unavailable Unavailable SHRUTI RN, BECK Unavailable Unavailabl e GANJOHANNA PT, KASSANDRA Unavailable Unavailable [employer] STERILIZER, EMILIANO Unavailable Unavailabl e VICENTA OT, SHAUN Unavailable Unavailable AKBAR MELENDEZN, PATRICIA Unavailable Unavailable Payers Payer Name Policy Type Policy Number Effective Date Expira tion Date MEDICARE.[facility]ALMJAYLEN[facility] [id number] Problems Condition Name Condition Details Condition Category Status Onset Date Resolution Date Last Treatment Date Treating Clinician Comments AGE-REL OSTEOPOR W CRNT PATH FX, R FEMR, 7THD Active 05-14 00:00: 00 ACUTE PAIN DUE TO TRAUMA Active 05-14 00:00: 00 CHRONIC OBSTRUCTIVE PULMONARY DISEASE, UNSPECIFIED Active 10-28 00:00: 00 CHRONIC RESPIRATORY FAILURE WITH HYPOXIA Active 10-28 00:00: 00 ESSENTIAL (PRIMARY) HYPERTENSION Active 10-28 00:00: 00 ATHSCL HEART DISEASE OF [place] CORONARY ARTERY W/O ANG PCTRS Active 10-28 00:00: 00 HYPERLIPIDEM IA, UNSPECIFIED Active 10-28 00:00: 00 CERVICALGIA Active 10-28 00:00: 00 DEPRESSION, UNSPECIFIED Active 10-28 00:00: 00 OLD MYOCARDIAL INFARCTION Active 10-28 00:00: 00 ANEMIA, UNSPECIFIED Active 10-28 00:00: 00 SOLITARY PULMONARY NODULE Active 10-28 00:00: 00 OTHER POSTHERPETIC NERVOUS SYSTEM INVOLVEMENT Active 10-28 00:00: 00 HISTORY OF FALLING Active 05-14 00:00: 00 PERSONAL HISTORY OF NICOTINE DEPENDENCE Active 10-28 00:00: 00 DEPENDENCE ON SUPPLEMENTAL OXYGEN Active 10-28 00:00: 00 Allergies, Adverse Reactions, Alerts Allergy Name Allergy Type Status Severity Reaction(s) Onset Date Inactive Date Treating Clinician Comments NO KNOWN ALLERGIES Propensity to adverse reactions Active 06-02 10:50: 02 Medications Ordered Medication Name Filled Medication Name Start Date Stop Date Current Medication? Ordering Clinician Indication Dosage Frequency Signature (SIG) Comments Components albuterol sulfate HFA 90 mcg/actuati on aerosol inhaler 05-24 00:00: 00 Yes [id number] WHEEZING 1-2 puff EVERY 6 HOURS 1-2 puff EVERY 6 HOURS (route: inhalation ) Med Classific ation: Respirato ry Therapy Agents FeroSul 325 mg (65 mg iron) tablet 05-07 00:00: 00 Yes [id number] SUPPLEMENT 1 tablet DAILY 1 tablet DAILY (route: oral) Med Classific ation: Electroly te Balance-N utritiona l Products hydrocodone 5 mg-acetamin ophen 325 mg tablet 05-04 00:00: 00 Yes [id number] PAIN 1 tablet TWICE DAILY NEEDED 1 tablet TWICE DAILY NEEDED (route: oral) Med Classific ation: Analgesic , Anti-infl ammatory or Antipyret ic carvedilol 6.25 mg tablet 04-25 00:00: 00 Yes [id number] BLOOD PRESSURE 1 tablet EVERY 12 HOURS 1 tablet EVERY 12 HOURS (route: oral) Med Classific ation: Cardiovas cular Therapy Agents lisinopril 5 mg tablet 04-25 00:00: 00 06-02 00:00 :00 No [id number] Per instruc tions Per instructio ns (route: oral) Med Classific ation: Cardiovas cular Therapy Agents bupropion HCl XL 300 mg 24 hr tablet, extended release 06-02 00:00: 00 Yes [id number] MOOD 1 tablet DAILY 1 tablet DAILY (route: oral) Med Classific ation: Central Nervous System Agents vitamin B complex tablet 06-02 00:00: 00 Yes [id number] SUPPLEMENT 1 tablet DAILY 1 tablet DAILY (route: oral) Med Classific ation: Electroly te Balance-N utritiona l Products aspirin 81 mg tablet,chanelle yed release 06-02 00:00: 00 Yes [id number] PREVENT BLOOD CLOTS 1 tablet DAILY 1 tablet DAILY (route: oral) Med Classific ation: Hematolog ical Agents atorvastati n 80 mg tablet 06-02 00:00: 00 Yes [id number] CHOLESTEROL 1 tablet DAILY 1 tablet DAILY (route: oral) Med Classific ation: Cardiovas cular Therapy Agents Breztri Aerosphere 160 mcg-9mcg-4. 8mcg/actuat ion HFA aerosol inhaler 06-02 00:00: 00 Yes [id number] COPD 2 puff 2 TIMES DAILY 2 puff 2 TIMES DAILY (route: inhalation ) Med Classific ation: Respirato ry Therapy Agents levalbutero l 1.25 mg/3 mL solution for nebulizatio n 06-02 00:00: 00 Yes [id number] SHORTNESS OF BREATH 3 mL 3 TIMES DAILY 3 mL 3 TIMES DAILY (route: inhalation ) Med Classific ation: Respirato ry Therapy Agents Miralax 17 gram oral powder packet 06-02 00:00: 00 Yes [id number] CONSTIPATIO N 17 g EVERY AM 17 g EVERY AM (route: oral) Med Classific ation: Gastroint estinal Therapy Agents oxygen gas for inhalation 06-02 00:00: 00 Yes [id number] DIFFICULTIE S WITH BREATHING 4 Liter DAILY 4 Liter DAILY (route: inhalation ) Med Classific ation: Medical Supplies and Durable Medical Equipment (DME) Senna with Docusate Sodium 8.6 mg-50 mg tablet 06-02 00:00: 00 Yes [id number] CONSTIPATIO N 2 tablet 2 TIMES DAILY 2 tablet 2 TIMES DAILY (route: oral) Med Classific ation: Gastroint estinal Therapy Agents ondansetron 4 mg disintegrat ing tablet 07-15 00:00: 00 Yes [id number] NAUSEA 1 tablet EVERY 6 HOURS 1 tablet EVERY 6 HOURS (route: oral) Med Classific ation: Gastroint estinal Therapy Agents Vital Signs Vital Name Observation Time Observation Value Commen ts Temperature 2025-07-20 13:01:00.000 97.3 [degF] Temperature 2025-07-12 15:19:00.000 98.2 [degF] Temperature 2025-07-08 12:41:00.000 97.8 [degF] Temperature 2025-07-06 12:46:00.000 97.8 [degF] Temperature 2025-07-01 12:44:00.000 97.6 [degF] Temperature 2025-07-01 11:04:00.000 96.8 [degF] Temperature 2025-06-30 11:59:00.000 97.5 [degF] Temperature 2025-06-24 12:41:00.000 98.1 [degF] Temperature 2025-06-22 11:54:00.000 98.4 [degF] Temperature 2025-06-21 16:05:00.000 97.9 [degF] Temperature 2025-06-20 15:23:00.000 99 [degF] Temperature 2025-06-18 15:16:00.000 97.9 [degF] Temperature 2025-06-16 13:48:00.000 98.1 [degF] Temperature 2025-06-15 12:45:00.000 97.6 [degF] Temperature 2025-06-11 13:24:00.000 98.5 [degF] Temperature 2025-06-08 14:53:00.000 98 [degF] Temperature 2025-06-08 10:32:00.000 97.1 [degF] Temperature 2025-06-03 15:36:00.000 97.7 [degF] Temperature 2025-06-03 13:56:00.000 97.7 [degF] Temperature 2025-06-02 11:12:00.000 97.2 [degF] BMI (%) 2025-06-02 11:12:00.000 17 kg/m2 Height 2025-06-02 11:12:00.000 62 [in_us] Pulse 2025-07-20 13:01:00.000 82 /min Pulse 2025-07-12 15:19:00.000 84 /min Pulse 2025-07-08 12:41:00.000 78 /min Pulse 2025-07-06 12:46:00.000 61 /min Pulse 2025-07-01 12:44:00.000 76 /min Pulse 2025-07-01 11:04:00.000 73 /min Pulse 2025-06-30 11:59:00.000 76 /min Pulse 2025-06-24 12:41:00.000 76 /min Pulse 2025-06-22 11:54:00.000 73 /min Pulse 2025-06-21 16:05:00.000 73 /min Pulse 2025-06-20 15:23:00.000 88 /min Pulse 2025-06-18 15:16:00.000 82 /min Pulse 2025-06-16 13:48:00.000 72 /min Pulse 2025-06-15 12:45:00.000 72 /min Pulse 2025-06-11 13:24:00.000 70 /min Pulse 2025-06-08 14:53:00.000 78 /min Pulse 2025-06-08 10:32:00.000 70 /min Pulse 2025-06-03 15:36:00.000 77 /min Pulse 2025-06-03 13:56:00.000 77 /min Pulse 2025-06-02 11:12:00.000 74 /min O2 Saturation (%) 2025-07-20 13:01:00.000 93 % O2 Saturation (%) 2025-07-12 15:30:00.000 96 % O2 Saturation (%) 2025-07-08 12:41:00.000 97 % O2 Saturation (%) 2025-07-06 12:46:00.000 100 % O2 Saturation (%) 2025-07-01 12:44:00.000 98 % O2 Saturation (%) 2025-07-01 11:04:00.000 95 % O2 Saturation (%) 2025-06-30 11:59:00.000 98 % O2 Saturation (%) 2025-06-24 12:41:00.000 98 % O2 Saturation (%) 2025-06-22 11:54:00.000 100 % O2 Saturation (%) 2025-06-21 16:06:00.000 99 % O2 Saturation (%) 2025-06-20 15:23:00.000 98 % O2 Saturation (%) 2025-06-18 15:16:00.000 98 % O2 Saturation (%) 2025-06-16 13:48:00.000 99 % O2 Saturation (%) 2025-06-15 12:47:00.000 97 % O2 Saturation (%) 2025-06-11 13:45:00.000 90 % O2 Saturation (%) 2025-06-08 14:53:00.000 95 % O2 Saturation (%) 2025-06-08 10:32:00.000 98 % O2 Saturation (%) 2025-06-03 15:36:00.000 99 % O2 Saturation (%) 2025-06-03 13:56:00.000 99 % O2 Saturation (%) 2025-06-02 11:12:00.000 98 % Respirations 2025-07-20 13:01:00.000 18 /min Respirations 2025-07-12 15:19:00.000 18 /min Respirations 2025-07-08 12:41:00.000 20 /min Respirations 2025-07-06 12:46:00.000 18 /min Respirations 2025-07-01 12:44:00.000 18 /min Respirations 2025-07-01 11:04:00.000 16 /min Respirations 2025-06-30 11:59:00.000 17 /min Respirations 2025-06-24 12:41:00.000 18 /min Respirations 2025-06-22 11:54:00.000 18 /min Respirations 2025-06-21 16:05:00.000 18 /min Respirations 2025-06-20 15:23:00.000 18 /min Respirations 2025-06-18 15:16:00.000 18 /min Respirations 2025-06-16 13:48:00.000 18 /min Respirations 2025-06-15 12:45:00.000 18 /min Respirations 2025-06-11 13:24:00.000 18 /min Respirations 2025-06-08 14:53:00.000 18 /min Respirations 2025-06-08 10:32:00.000 18 /min Respirations 2025-06-03 15:36:00.000 18 /min Respirations 2025-06-03 13:56:00.000 19 /min Respirations 2025-06-02 11:12:00.000 18 /min Weight (lbs) 2025-06-02 11:12:00.000 98 [lb_av] Systolic Blood Pressure 2025-07-20 13:01:00.000 132 mm [Hg] Systolic Blood Pressure 2025-07-12 15:19:00.000 144 mm [Hg] Systolic Blood Pressure 2025-07-08 12:41:00.000 126 mm [Hg] Systolic Blood Pressure 2025-07-06 12:46:00.000 132 mm [Hg] Systolic Blood Pressure 2025-07-01 12:44:00.000 126 mm [Hg] Systolic Blood Pressure 2025-07-01 11:04:00.000 120 mm [Hg] Systolic Blood Pressure 2025-06-30 11:59:00.000 122 mm [Hg] Systolic Blood Pressure 2025-06-24 12:41:00.000 122 mm [Hg] Systolic Blood Pressure 2025-06-22 12:13:00.000 106 mm [Hg] Systolic Blood Pressure 2025-06-21 16:05:00.000 130 mm [Hg] Systolic Blood Pressure 2025-06-20 15:23:00.000 122 mm [Hg] Systolic Blood Pressure 2025-06-18 15:16:00.000 128 mm [Hg] Systolic Blood Pressure 2025-06-16 13:48:00.000 116 mm [Hg] Systolic Blood Pressure 2025-06-15 12:45:00.000 108 mm [Hg] Systolic Blood Pressure 2025-06-11 13:24:00.000 124 mm [Hg] Systolic Blood Pressure 2025-06-08 14:53:00.000 124 mm [Hg] Systolic Blood Pressure 2025-06-08 10:32:00.000 102 mm [Hg] Systolic Blood Pressure 2025-06-03 15:36:00.000 132 mm [Hg] Systolic Blood Pressure 2025-06-03 13:56:00.000 132 mm [Hg] Systolic Blood Pressure 2025-06-02 11:12:00.000 100 mm [Hg] Diastolic Blood Pressure 2025-07-20 13:01:00.000 74 mm [Hg] Diastolic Blood Pressure 2025-07-12 15:19:00.000 50 mm [Hg] Diastolic Blood Pressure 2025-07-08 12:41:00.000 78 mm [Hg] Diastolic Blood Pressure 2025-07-06 12:46:00.000 60 mm [Hg] Diastolic Blood Pressure 2025-07-01 12:44:00.000 68 mm [Hg] Diastolic Blood Pressure 2025-07-01 11:04:00.000 58 mm [Hg] Diastolic Blood Pressure 2025-06-30 11:59:00.000 76 mm [Hg] Diastolic Blood Pressure 2025-06-24 12:41:00.000 62 mm [Hg] Diastolic Blood Pressure 2025-06-22 12:13:00.000 58 mm [Hg] Diastolic Blood Pressure 2025-06-21 16:05:00.000 65 mm [Hg] Diastolic Blood Pressure 2025-06-20 15:23:00.000 52 mm [Hg] Diastolic Blood Pressure 2025-06-18 15:16:00.000 56 mm [Hg] Diastolic Blood Pressure 2025-06-16 13:48:00.000 64 mm [Hg] Diastolic Blood Pressure 2025-06-15 12:45:00.000 70 mm [Hg] Diastolic Blood Pressure 2025-06-11 13:24:00.000 68 mm [Hg] Diastolic Blood Pressure 2025-06-08 14:53:00.000 78 mm [Hg] Diastolic Blood Pressure 2025-06-08 10:32:00.000 64 mm [Hg] Diastolic Blood Pressure 2025-06-03 15:36:00.000 58 mm [Hg] Diastolic Blood Pressure 2025-06-03 13:56:00.000 58 mm [Hg] Diastolic Blood Pressure 2025-06-02 11:12:00.000 54 mm [Hg] Plan of Treatment Planned Activity Planned Date Details Comments Future Scheduled Test RN TO OBSE RVE, ASSESS, EVALUATE, AND DEVELOP AN INDIVIDUALIZED PLAN OF CARE. AGENCY MAY ACCEPT ORDERS FROM CONSULTING PHYSICIANS ROSE GAMBOA RN TO OBSERVE AND ASSESS, EQUIPMENT OILER/WEBFED OFFSET PRESS OPERATOR TO OBSERVE FOR RISK FOR FALLS AND INSTRUCT IN FALL PREVENTION, HOME SAFETY, MEDICATION MANAGEMENT, INFECTION PREVENTION, AND NUTRITION MANAGEMENT. RN/EQUIPMENT OILER/WEBFED OFFSET PRESS OPERATOR NURSE MAY PERFORM O2 SATURATION LEVEL ON ADMISSION AND PRN FOR EVERY VISIT FOR RN TO ASSESS/EQUIPMENT OILER TO OBSERVE PATIENT, WITH NOTIFICATION TO THE PHYSICIAN IF SATURATION IS 90% IN THE ABSENCE OF MORE SPECIFIC PARAMETERS FROM THE PHYSICIAN. AGENCY MAY PERFORM A RESUMPTION OF CARE VISIT FOLLOWING ANY HOSPITAL ADMISSION. RN/EQUIPMENT OILER/WEBFED OFFSET PRESS OPERATOR TO MONITOR CO-MORBID CONDITIONS LISTED ON THE PLAN OF CARE AND ANY NEW CONDITIONS THAT PRESENT THEMSELVES DURING THIS EPISODE TO IDENTIFY CHANGES AND INTERVENE TO MINIMIZE COMPLICATIONS. [code = RN TO OBSERVE, ASSESS, EVALUATE, AND DEVELOP AN INDIVIDUALIZED PLAN OF CARE. AGENCY MAY ACCEPT ORDERS FROM CONSULTING PHYSICIANS ROSE GAMBOA RN TO OBSERVE AND ASSESS, EQUIPMENT OILER/WEBFED OFFSET PRESS OPERATOR TO OBSERVE FOR RISK FOR FALLS AND INSTRUCT IN FALL PREVENTION, HOME SAFETY, MEDICATION MANAGEMENT, INFECTION PREVENTION, AND NUTRITION MANAGEMENT. RN/EQUIPMENT OILER/WEBFED OFFSET PRESS OPERATOR NURSE MAY PERFORM O2 SATURATION LEVEL ON ADMISSION AND PRN FOR EVERY VISIT FOR RN TO ASSESS/EQUIPMENT OILER TO OBSERVE PATIENT, WITH NOTIFICATION TO THE PHYSICIAN IF SATURATION IS 90% IN THE ABSENCE OF MORE SPECIFIC PARAMETERS FROM THE PHYSICIAN. AGENCY MAY PERFORM A RESUMPTION OF CARE VISIT FOLLOWING ANY HOSPITAL ADMISSION. RN/EQUIPMENT OILER/WEBFED OFFSET PRESS OPERATOR TO MONITOR CO-MORBID CONDITIONS LISTED ON THE PLAN OF CARE AND ANY NEW CONDITIONS THAT PRESENT THEMSELVES DURING THIS EPISODE TO IDENTIFY CHANGES AND INTERVENE TO MINIMIZE COMPLICATIONS.] Future Scheduled Test RISK FOR H OSPITALIZATION; RN TO ASSESS/TEACH, WEBFED OFFSET PRESS OPERATOR/EQUIPMENT OILER TO OBSERVE/TEACH PATIENT/CAREGIVER ON RISK FOR HOSPITALIZATION/EMERGENCY ROOM VISITS, TEACH SIGNS AND SYMPTOMS THAT PUT PATIENT AT RISK, WHEN TO NOTIFY NURSE/PHYSICIAN OF COMPLICATIONS/DECLINE, AND WHEN TO CALL 911. [code = RISK FOR HOSPITALIZATION; RN TO ASSESS/TEACH, WEBFED OFFSET PRESS OPERATOR/EQUIPMENT OILER TO OBSERVE/TEACH PATIENT/CAREGIVER ON RISK FOR HOSPITALIZATION/EMERGENCY ROOM VISITS, TEACH SIGNS AND SYMPTOMS THAT PUT PATIENT AT RISK, WHEN TO NOTIFY NURSE/PHYSICIAN OF COMPLICATIONS/DECLINE, AND WHEN TO CALL 911.] Future Scheduled Test FALL REDUC TION MANAGEMENT; RN TO ASSESS AND OBSERVE, EQUIPMENT OILER/WEBFED OFFSET PRESS OPERATOR TO OBSERVE FALL RISK FACTORS AND EDUCATE PATIENT/CAREGIVER ON STRATEGIES TO MINIMIZE THE RISK OF FALLING. [code = FALL REDUCTION MANAGEMENT; RN TO ASSESS AND OBSERVE, EQUIPMENT OILER/WEBFED OFFSET PRESS OPERATOR TO OBSERVE FALL RISK FACTORS AND EDUCATE PATIENT/CAREGIVER ON STRATEGIES TO MINIMIZE THE RISK OF FALLING.] Future Scheduled Test PHYSICAL T HERAPIST TO EVALUATE FOR EVALUATION AND TREATMENT [code = PHYSICAL THERAPIST TO EVALUATE FOR EVALUATION AND TREATMENT] Future Scheduled Test OCCUPATION AL THERAPIST TO EVALUATE FOR EVALUATION AND TREATMENT [code = OCCUPATIONAL THERAPIST TO EVALUATE FOR EVALUATION AND TREATMENT] Future Scheduled Test PAIN MANAG EMENT; RN TO ASSESS AND TEACH, WEBFED OFFSET PRESS OPERATOR/EQUIPMENT OILER TO OBSERVE AND TEACH AND PROVIDE EDUCATION ON PAIN MANAGEMENT TECHNIQUES. [code = PAIN MANAGEMENT; RN TO ASSESS AND TEACH, WEBFED OFFSET PRESS OPERATOR/EQUIPMENT OILER TO OBSERVE AND TEACH AND PROVIDE EDUCATION ON PAIN MANAGEMENT TECHNIQUES.] Future Scheduled Test CARDIOVASC ULAR SYSTEM; RN TO ASSESS/TEACH, EQUIPMENT OILER/WEBFED OFFSET PRESS OPERATOR TO OBSERVE/TEACH RELATED TO ALTERED CARDIOVASCULAR STATUS TO MINIMIZE COMPLICATIONS AND REDUCE HOSPITALIZATION. [code = CARDIOVASCULAR SYSTEM; RN TO ASSESS/TEACH, EQUIPMENT OILER/WEBFED OFFSET PRESS OPERATOR TO OBSERVE/TEACH RELATED TO ALTERED CARDIOVASCULAR STATUS TO MINIMIZE COMPLICATIONS AND REDUCE HOSPITALIZATION.] Future Scheduled Test HYPERTENSI ON MANAGEMENT; RN TO ASSESS AND TEACH, EQUIPMENT OILER/WEBFED OFFSET PRESS OPERATOR TO OBSERVE AND TEACH WARNING SIGNS AND SYMPTOMS TO AVOID HOSPITALIZATION. [code = HYPERTENSION MANAGEMENT; RN TO ASSESS AND TEACH, EQUIPMENT OILER/WEBFED OFFSET PRESS OPERATOR TO OBSERVE AND TEACH WARNING SIGNS AND SYMPTOMS TO AVOID HOSPITALIZATION.] Future Scheduled Test RESPIRATOR Y SYSTEM MANAGEMENT; RN TO ASSESS AND TEACH, EQUIPMENT OILER/WEBFED OFFSET PRESS OPERATOR TO OBSERVE AND TEACH RELATED TO ALTERED RESPIRATORY STATUS TO MINIMIZE COMPLICATIONS AND REDUCE HOSPITALIZATION. [code = RESPIRATORY SYSTEM MANAGEMENT; RN TO ASSESS AND TEACH, EQUIPMENT OILER/WEBFED OFFSET PRESS OPERATOR TO OBSERVE AND TEACH RELATED TO ALTERED RESPIRATORY STATUS TO MINIMIZE COMPLICATIONS AND REDUCE HOSPITALIZATION.] Future Scheduled Test OXYGEN THE RAPY; RN/EQUIPMENT OILER/WEBFED OFFSET PRESS OPERATOR TO INSTRUCT ON OXYGEN MANAGEMENT INCLUDING: ADMINISTRATION AT 4L/MIN VIA NC CONTINUOUS/PRN FOR DIFFICULTIES WITH BREATHING, CARE OF EQUIPMENT AND SAFETY. [code = OXYGEN THERAPY; RN/EQUIPMENT OILER/WEBFED OFFSET PRESS OPERATOR TO INSTRUCT ON OXYGEN MANAGEMENT INCLUDING: ADMINISTRATION AT 4L/MIN VIA NC CONTINUOUS/PRN FOR DIFFICULTIES WITH BREATHING, CARE OF EQUIPMENT AND SAFETY.] Future Scheduled Test RN TO ASSE SS/TEACH, EQUIPMENT OILER/WEBFED OFFSET PRESS OPERATOR TO OBSERVE/TEACH SURGICAL AFTERCARE MANAGEMENT TO AVOID HOSPITALIZATION. [code = RN TO ASSESS/TEACH, EQUIPMENT OILER/WEBFED OFFSET PRESS OPERATOR TO OBSERVE/TEACH SURGICAL AFTERCARE MANAGEMENT TO AVOID HOSPITALIZATION.] Future Scheduled Test ANEMIA MAN AGEMENT; RN TO ASSESS AND TEACH, WEBFED OFFSET PRESS OPERATOR/EQUIPMENT OILER TO OBSERVE AND TEACH AND PROVIDE EDUCATION ON ANEMIA. [code = ANEMIA MANAGEMENT; RN TO ASSESS AND TEACH, WEBFED OFFSET PRESS OPERATOR/EQUIPMENT OILER TO OBSERVE AND TEACH AND PROVIDE EDUCATION ON ANEMIA.] Future Scheduled Test RN/EQUIPMENT OILER/WEBFED OFFSET PRESS OPERATOR TO PERFORM/TEACH INCISION CARE TO AREA: IRRIGATE/CLEANSE WITH #1 RIGHT PROXIMAL FEMORAL AND #2 AND #3 DISTAL RIGHT THIGH AREA PATIENT MAY SHOWER, STERI STRIPS PLACE AND ALLOW STRIPS TO FALL OFF ON THERE OWN, DO NOT PICK OR PULL. OPEN TO AIR MAY APPLY SKIN BARRIER TO PERIWOUND PRN TO PREVENT MACERATION AND PROTECT PERIWOUND [code = RN/EQUIPMENT OILER/WEBFED OFFSET PRESS OPERATOR TO PERFORM/TEACH INCISION CARE TO AREA: IRRIGATE/CLEANSE WITH #1 RIGHT PROXIMAL FEMORAL AND #2 AND #3 DISTAL RIGHT THIGH AREA PATIENT MAY SHOWER, STERI STRIPS PLACE AND ALLOW STRIPS TO FALL OFF ON THERE OWN, DO NOT PICK OR PULL. OPEN TO AIR MAY APPLY SKIN BARRIER TO PERIWOUND PRN TO PREVENT MACERATION AND PROTECT PERIWOUND] Future Scheduled Test MEDICATION MANAGEMENT; RN/EQUIPMENT OILER/WEBFED OFFSET PRESS OPERATOR TO REVIEW MEDICATIONS FOR INTERACTIONS, EFFECTIVENESS OF DRUG THERAPY, AND SIGNS/SYMPTOMS OF ADVERSE REACTIONS. MAY INSTRUCT AND REINFORCE MEDICATION TEACHING RELATED TO THE USE OF MEDICATIONS, DOSAGE, FREQUENCY, PURPOSE, SIDE EFFECTS, AND TO REPORT COMPLICATIONS. [code = MEDICATION MANAGEMENT; RN/EQUIPMENT OILER/WEBFED OFFSET PRESS OPERATOR TO REVIEW MEDICATIONS FOR INTERACTIONS, EFFECTIVENESS OF DRUG THERAPY, AND SIGNS/SYMPTOMS OF ADVERSE REACTIONS. MAY INSTRUCT AND REINFORCE MEDICATION TEACHING RELATED TO THE USE OF MEDICATIONS, DOSAGE, FREQUENCY, PURPOSE, SIDE EFFECTS, AND TO REPORT COMPLICATIONS.] Future Scheduled Test ANTITHROMB OTIC MANAGEMENT; RN TO ASSESS AND TEACH, EQUIPMENT OILER/WEBFED OFFSET PRESS OPERATOR TO OBSERVE/TEACH/MONITOR EFFECTIVENESS OF ANTITHROMBOTIC THERAPY. RN/EQUIPMENT OILER/WEBFED OFFSET PRESS OPERATOR TO INSTRUCT ON SIGNS AND SYMPTOMS OF BLEEDING/ADVERSE REACTIONS TO REPORT TO PHYSICIAN. PATIENT PRESCRIBED ASPIRIN [code = ANTITHROMBOTIC MANAGEMENT; RN TO ASSESS AND TEACH, EQUIPMENT OILER/WEBFED OFFSET PRESS OPERATOR TO OBSERVE/TEACH/MONITOR EFFECTIVENESS OF ANTITHROMBOTIC THERAPY. RN/EQUIPMENT OILER/WEBFED OFFSET PRESS OPERATOR TO INSTRUCT ON SIGNS AND SYMPTOMS OF BLEEDING/ADVERSE REACTIONS TO REPORT TO PHYSICIAN. PATIENT PRESCRIBED ASPIRIN] Future Scheduled Test COPD MANAG EMENT; RN TO ASSESS AND TEACH, EQUIPMENT OILER/WEBFED OFFSET PRESS OPERATOR TO OBSERVE AND TEACH SIGNS/SYMPTOMS OF COPD EXACERBATION AND PROVIDE EARLY INTERVENTIONS TO MINIMIZE RISK OF HOSPITALIZATION. RN/EQUIPMENT OILER/WEBFED OFFSET PRESS OPERATOR TO INSTRUCT ON SELF-CARE MANAGEMENT INCLUDING BREATHING TECHNIQUES, AIRWAY CLEARANCE, AND PROPER USE OF COPD MEDICATIONS. RN TO ASSESS AND TEACH, EQUIPMENT OILER/WEBFED OFFSET PRESS OPERATOR TO OBSERVE AND TEACH PATIENT/CAREGIVER ABILITY TO MONITOR AND RECORD VITAL SIGNS INCLUDING PULSE OXIMETRY AND BLOOD PRESSURE. PULSE OXIMETER AND BP MONITOR TO BE PROVIDED IF NEEDED [code = COPD MANAGEMENT; RN TO ASSESS AND TEACH, EQUIPMENT OILER/WEBFED OFFSET PRESS OPERATOR TO OBSERVE AND TEACH SIGNS/SYMPTOMS OF COPD EXACERBATION AND PROVIDE EARLY INTERVENTIONS TO MINIMIZE RISK OF HOSPITALIZATION. RN/EQUIPMENT OILER/WEBFED OFFSET PRESS OPERATOR TO INSTRUCT ON SELF-CARE MANAGEMENT INCLUDING BREATHING TECHNIQUES, AIRWAY CLEARANCE, AND PROPER USE OF COPD MEDICATIONS. RN TO ASSESS AND TEACH, EQUIPMENT OILER/WEBFED OFFSET PRESS OPERATOR TO OBSERVE AND TEACH PATIENT/CAREGIVER ABILITY TO MONITOR AND RECORD VITAL SIGNS INCLUDING PULSE OXIMETRY AND BLOOD PRESSURE. PULSE OXIMETER AND BP MONITOR TO BE PROVIDED IF NEEDED] Future Scheduled Test SKIN INTEG RITY RN TO ASSESS AND TEACH, EQUIPMENT OILER/WEBFED OFFSET PRESS OPERATOR TO OBSERVE AND TEACH INTEGUMENTARY STATUS TO IDENTIFY CHANGES AND INTERVENE TO MINIMIZE COMPLICATIONS. PROVIDE SKILLED TEACHING OF GENERAL WOUND AND SKIN CARE AND PREVENTION RELATED TO POTENTIAL FOR OR ACTUAL ALTERED SKIN INTEGRITY [code = SKIN INTEGRITY RN TO ASSESS AND TEACH, EQUIPMENT OILER/WEBFED OFFSET PRESS OPERATOR TO OBSERVE AND TEACH INTEGUMENTARY STATUS TO IDENTIFY CHANGES AND INTERVENE TO MINIMIZE COMPLICATIONS. PROVIDE SKILLED TEACHING OF GENERAL WOUND AND SKIN CARE AND PREVENTION RELATED TO POTENTIAL FOR OR ACTUAL ALTERED SKIN INTEGRITY] Future Scheduled Test RN TO ASSE SS AND TEACH, EQUIPMENT OILER/WEBFED OFFSET PRESS OPERATOR TO OBSERVE AND TEACH INTEGUMENTARY STATUS RELATED TO PRESSURE INJURY MANAGEMENT TO IDENTIFY CHANGES AND INTERVENE TO MINIMIZE COMPLICATIONS. PROVIDE SKILLED TEACHING RELATED TO ALTERED SKIN INTEGRITY TO INCLUDE OFFLOADING, FREQUENT POSITION CHANGES, KEEP SKIN CLEAN AND DRY TO PREVENT SKIN BREAKDOWN AND MINIMIZE FRICTION AND SHEARING REPORT SIGNIFICANT CHANGES IN STATUS TO PHYSICIAN FOR EARLY INTERVENTION. [code = RN TO ASSESS AND TEACH, EQUIPMENT OILER/WEBFED OFFSET PRESS OPERATOR TO OBSERVE AND TEACH INTEGUMENTARY STATUS RELATED TO PRESSURE INJURY MANAGEMENT TO IDENTIFY CHANGES AND INTERVENE TO MINIMIZE COMPLICATIONS. PROVIDE SKILLED TEACHING RELATED TO ALTERED SKIN INTEGRITY TO INCLUDE OFFLOADING, FREQUENT POSITION CHANGES, KEEP SKIN CLEAN AND DRY TO PREVENT SKIN BREAKDOWN AND MINIMIZE FRICTION AND SHEARING REPORT SIGNIFICANT CHANGES IN STATUS TO PHYSICIAN FOR EARLY INTERVENTION.] Future Scheduled Test WOUND MOLE CULAR TESTING PROTOCOL UP TO 2 PRN RN/EQUIPMENT OILER/WEBFED OFFSET PRESS OPERATOR VISITS MAY BE PERFORMED FOR S/S OF WOUND INFECTION/DETERIORATION/STAGNATION. RN TO ASSESS, EQUIPMENT OILER/WEBFED OFFSET PRESS OPERATOR TO OBSERVE AND INITIATE PROTOCOL. RN/EQUIPMENT OILER/WEBFED OFFSET PRESS OPERATOR TO INSTRUCT PATIENT AND/OR CAREGIVER ON S/S OF WOUND INFECTION/DETERIORATION/STAGNATION TO REPORT TO NURSE IF NEW OR WORSENING SYMPTOMS. RN/EQUIPMENT OILER/WEBFED OFFSET PRESS OPERATOR TO OBTAIN WOUND SPECIMEN FOR MOLECULAR WOUND TESTING VIA SWAB COLLECTION PER POLICY. INCLUDE ANTIBIOTIC/ANTIFUNGAL RESISTANCE TESTING NOTIFY PROVIDER OF RESULTS AND OBTAIN FURTHER ORDERS. [code = WOUND MOLECULAR TESTING PROTOCOL UP TO 2 PRN RN/EQUIPMENT OILER/WEBFED OFFSET PRESS OPERATOR VISITS MAY BE PERFORMED FOR S/S OF WOUND INFECTION/DETERIORATION/STAGNATION. RN TO ASSESS, EQUIPMENT OILER/WEBFED OFFSET PRESS OPERATOR TO OBSERVE AND INITIATE PROTOCOL. RN/EQUIPMENT OILER/WEBFED OFFSET PRESS OPERATOR TO INSTRUCT PATIENT AND/OR CAREGIVER ON S/S OF WOUND INFECTION/DETERIORATION/STAGNATION TO REPORT TO NURSE IF NEW OR WORSENING SYMPTOMS. RN/EQUIPMENT OILER/WEBFED OFFSET PRESS OPERATOR TO OBTAIN WOUND SPECIMEN FOR MOLECULAR WOUND TESTING VIA SWAB COLLECTION PER POLICY. INCLUDE ANTIBIOTIC/ANTIFUNGAL RESISTANCE TESTING NOTIFY PROVIDER OF RESULTS AND OBTAIN FURTHER ORDERS.] Future Scheduled Test WOUND CULT URE TESTING PROTOCOL UP TO 2 PRN RN/EQUIPMENT OILER VISITS MAY BE PERFORMED FOR S/S OF WOUND INFECTION/DETERIORATION/STAGNATION. RN TO ASSESS, EQUIPMENT OILER/WEBFED OFFSET PRESS OPERATOR TO OBSERVE AND INITIATE PROTOCOL. RN/EQUIPMENT OILER/WEBFED OFFSET PRESS OPERATOR TO INSTRUCT PATIENT AND/OR CAREGIVER ON S/S OF WOUND INFECTION/DETERIORATION/STAGNATION TO REPORT TO NURSE IF NEW OR WORSENING SYMPTOMS. RN/EQUIPMENT OILER/WEBFED OFFSET PRESS OPERATOR TO OBTAIN WOUND SPECIMEN FOR CULTURE VIA SWAB COLLECTION INCLUDE ANTIBIOTIC/ANTIFUNGAL RESISTANCE TESTING NOTIFY PROVIDER OF RESULTS AND OBTAIN FURTHER ORDERS. [code = WOUND CULTURE TESTING PROTOCOL UP TO 2 PRN RN/EQUIPMENT OILER VISITS MAY BE PERFORMED FOR S/S OF WOUND INFECTION/DETERIORATION/STAGNATION. RN TO ASSESS, EQUIPMENT OILER/WEBFED OFFSET PRESS OPERATOR TO OBSERVE AND INITIATE PROTOCOL. RN/EQUIPMENT OILER/WEBFED OFFSET PRESS OPERATOR TO INSTRUCT PATIENT AND/OR CAREGIVER ON S/S OF WOUND INFECTION/DETERIORATION/STAGNATION TO REPORT TO NURSE IF NEW OR WORSENING SYMPTOMS. RN/EQUIPMENT OILER/WEBFED OFFSET PRESS OPERATOR TO OBTAIN WOUND SPECIMEN FOR CULTURE VIA SWAB COLLECTION INCLUDE ANTIBIOTIC/ANTIFUNGAL RESISTANCE TESTING NOTIFY PROVIDER OF RESULTS AND OBTAIN FURTHER ORDERS.] Future Scheduled Test ACUTE MYOC ARDIAL INFARCT; RN TO ASSESS/TEACH, EQUIPMENT OILER/WEBFED OFFSET PRESS OPERATOR TO OBSERVE/TEACH WARNING SIGNS AND SYMPTOMS TO AVOID HOSPITALIZATION. [code = ACUTE MYOCARDIAL INFARCT; RN TO ASSESS/TEACH, EQUIPMENT OILER/WEBFED OFFSET PRESS OPERATOR TO OBSERVE/TEACH WARNING SIGNS AND SYMPTOMS TO AVOID HOSPITALIZATION.] Future Scheduled Test PRN VISITS ; NUMBER OF RN/EQUIPMENT OILER/WEBFED OFFSET PRESS OPERATOR VISITS: 1 RN/EQUIPMENT OILER/WEBFED OFFSET PRESS OPERATOR TO PERFORM: RESPIRATORY MANAGEMENT FOR THE FOLLOWING REASONS: COMPLICATIONS [code = PRN VISITS; NUMBER OF RN/EQUIPMENT OILER/WEBFED OFFSET PRESS OPERATOR VISITS: 1 RN/EQUIPMENT OILER/WEBFED OFFSET PRESS OPERATOR TO PERFORM: RESPIRATORY MANAGEMENT FOR THE FOLLOWING REASONS: COMPLICATIONS] Future Scheduled Test ASTHMA MAN AGEMENT; RN TO ASSESS AND TEACH, EQUIPMENT OILER/WEBFED OFFSET PRESS OPERATOR TO OBSERVE AND TEACH ASTHMA MANAGEMENT AND PROVIDE EARLY INTERVENTIONS TO MINIMIZE RISK OF HOSPITALIZATION [code = ASTHMA MANAGEMENT; RN TO ASSESS AND TEACH, EQUIPMENT OILER/WEBFED OFFSET PRESS OPERATOR TO OBSERVE AND TEACH ASTHMA MANAGEMENT AND PROVIDE EARLY INTERVENTIONS TO MINIMIZE RISK OF HOSPITALIZATION] Future Scheduled Test AGENCY MAY PERFORM A RESUMPTION OF CARE VISIT FOLLOWING ANY HOSPITAL ADMISSION. PT TO EVALUATE, OBSERVE / ASSESS, AND MONITOR, SURGICAL SUPPLIES STERILIZER TO OBSERVE AND MONITOR, PROVIDE SKILLED THERAPEUTIC INTERVENTION, ACTIVITY, EDUCATION, AND TRAINING TO ADDRESS; PT/SURGICAL SUPPLIES STERILIZER TO PROVIDE GAIT TRAINING FOR IMPROVED MOBILITY AND /OR TO NORMALIZE GAIT PATTERN NEUROMUSCULAR RE-EDUCATION / BALANCE / POSTURAL CONTROL (PT) THERAPEUTIC EXERCISES AND ESTABLISHING A HOME EXERCISE PROGRAM (PT/SURGICAL SUPPLIES STERILIZER) PT/SURGICAL SUPPLIES STERILIZER TO PROVIDE STAIR TRAINING SIT TO/FROM STAND TRANSFERS (PT/SURGICAL SUPPLIES STERILIZER) PT / SURGICAL SUPPLIES STERILIZER TO MONITOR AND EDUCATE ON OXYGEN SATURATION DURING ADLS/IADLS, NOTIFY PHYSICIAN AND/OR THE RN CLINICAL ARMHOLE SEWER FOR PHYSICIAN NOTIFICATION AND IF O2 SATS BELOW PHYSICIAN ORDERED PARAMETERS AFTER 10 MIN OF REST PT / SURGICAL SUPPLIES STERILIZER TO EDUCATE PATIENT / CAREGIVER ON OXYGEN MANAGEMENT; OXYGEN FLOW RATE 4 L/MIN (CONTINUOUS) PT / SURGICAL SUPPLIES STERILIZER MAY TITRATE OXYGEN UP TO 5 L/MIN TO MAINTAIN O2 SAT > PHYSICIAN ORDERED PARAMETERS DURING ACTIVITY VIA NASAL CANNULA PT / SURGICAL SUPPLIES STERILIZER TO OBSERVE FOR EARLY SIGNS AND SYMPTOMS OF DEPRESSION OR DEPRESSION GETTING WORSE AND TO EDUCATE ON HOW TO FIND HELP. PT / SURGICAL SUPPLIES STERILIZER MAY EDUCATE ON PAIN MANAGEMENT CLINICALLY INDICATED, INCLUDING NON-PHARMACOLOGICAL PAIN REDUCTION TECHNIQUES AND USE OF CRYOTHERAPY UP TO 20 MIN AT A TIME FOR PAIN MANAGEMENT 5 TIMES PER DAY. PT / SURGICAL SUPPLIES STERILIZER TO INSTRUCT PATIENT/CAREGIVER ON RISK FOR HOSPITALIZATION/EMERGENCY ROOM VISITS, TEACH SIGNS AND SYMPTOMS THAT PUT PATIENT AT RISK, WHEN TO NOTIFY NURSE/PHYSICIAN OF COMPLICATIONS/DECLINE, AND WHEN TO CALL 911. PT / SURGICAL SUPPLIES STERILIZER TO OBSERVE WOUND/INCISION AND/OR INTACT DRESSING ON R HIP AND REPORT EARLY SIGNS AND SYMPTOMS OF WOUND DETERIORATION, COMPLICATIONS, OR INFECTION TO PHYSICIAN AND/OR THE RN CLINICAL ARMHOLE SEWER FOR PHYSICIAN NOTIFICATION. PT/SURGICAL SUPPLIES STERILIZER TO EDUCATE ON FEMUR FRACTURE /ORIF SELF-MANAGEMENT. PT / SURGICAL SUPPLIES STERILIZER TO EDUCATE ON HYPERTENSION SELF-MANAGEMENT PT TO ASSESS / SURGICAL SUPPLIES STERILIZER TO MONITOR CARDIO/RESPIRATORY SYSTEM; AND NOTIFY THE PHYSICIAN AND/OR THE RN CLINICAL ARMHOLE SEWER FOR PHYSICIAN NOTIFICATION FOR EARLY SIGNS AND SYMPTOMS OF EXACERBATION OR DETERIORATION. PT / SURGICAL SUPPLIES STERILIZER TO EDUCATE ON COPD SELF-MANAGEMENT PT/SURGICAL SUPPLIES STERILIZER TO IDENTIFY FALL RISK FACTORS; EDUCATE THE PATIENT/CAREGIVER ON WAYS TO REDUCE FALL RISK FACTORS AND ESTABLISH HOME EXERCISE PROGRAM TO MINIMIZE FALL RISK. MAY TEACH THE PATIENT FLOOR RECOVERY WHEN CLINICALLY APPROPRIATE [code = AGENCY MAY PERFORM A RESUMPTION OF CARE VISIT FOLLOWING ANY HOSPITAL ADMISSION. PT TO EVALUATE, OBSERVE / ASSESS, AND MONITOR, SURGICAL SUPPLIES STERILIZER TO OBSERVE AND MONITOR, PROVIDE SKILLED THERAPEUTIC INTERVENTION, ACTIVITY, EDUCATION, AND TRAINING TO ADDRESS; PT/SURGICAL SUPPLIES STERILIZER TO PROVIDE GAIT TRAINING FOR IMPROVED MOBILITY AND /OR TO NORMALIZE GAIT PATTERN NEUROMUSCULAR RE-EDUCATION / BALANCE / POSTURAL CONTROL (PT) THERAPEUTIC EXERCISES AND ESTABLISHING A HOME EXERCISE PROGRAM (PT/SURGICAL SUPPLIES STERILIZER) PT/SURGICAL SUPPLIES STERILIZER TO PROVIDE STAIR TRAINING SIT TO/FROM STAND TRANSFERS (PT/SURGICAL SUPPLIES STERILIZER) PT / SURGICAL SUPPLIES STERILIZER TO MONITOR AND EDUCATE ON OXYGEN SATURATION DURING ADLS/IADLS, NOTIFY PHYSICIAN AND/OR THE RN CLINICAL ARMHOLE SEWER FOR PHYSICIAN NOTIFICATION AND IF O2 SATS BELOW PHYSICIAN ORDERED PARAMETERS AFTER 10 MIN OF REST PT / SURGICAL SUPPLIES STERILIZER TO EDUCATE PATIENT / CAREGIVER ON OXYGEN MANAGEMENT; OXYGEN FLOW RATE 4 L/MIN (CONTINUOUS) PT / SURGICAL SUPPLIES STERILIZER MAY TITRATE OXYGEN UP TO 5 L/MIN TO MAINTAIN O2 SAT > PHYSICIAN ORDERED PARAMETERS DURING ACTIVITY VIA NASAL CANNULA PT / SURGICAL SUPPLIES STERILIZER TO OBSERVE FOR EARLY SIGNS AND SYMPTOMS OF DEPRESSION OR DEPRESSION GETTING WORSE AND TO EDUCATE ON HOW TO FIND HELP. PT / SURGICAL SUPPLIES STERILIZER MAY EDUCATE ON PAIN MANAGEMENT CLINICALLY INDICATED, INCLUDING NON-PHARMACOLOGICAL PAIN REDUCTION TECHNIQUES AND USE OF CRYOTHERAPY UP TO 20 MIN AT A TIME FOR PAIN MANAGEMENT 5 TIMES PER DAY. PT / SURGICAL SUPPLIES STERILIZER TO INSTRUCT PATIENT/CAREGIVER ON RISK FOR HOSPITALIZATION/EMERGENCY ROOM VISITS, TEACH SIGNS AND SYMPTOMS THAT PUT PATIENT AT RISK, WHEN TO NOTIFY NURSE/PHYSICIAN OF COMPLICATIONS/DECLINE, AND WHEN TO CALL 911. PT / SURGICAL SUPPLIES STERILIZER TO OBSERVE WOUND/INCISION AND/OR INTACT DRESSING ON R HIP AND REPORT EARLY SIGNS AND SYMPTOMS OF WOUND DETERIORATION, COMPLICATIONS, OR INFECTION TO PHYSICIAN AND/OR THE RN CLINICAL ARMHOLE SEWER FOR PHYSICIAN NOTIFICATION. PT/SURGICAL SUPPLIES STERILIZER TO EDUCATE ON FEMUR FRACTURE /ORIF SELF-MANAGEMENT. PT / SURGICAL SUPPLIES STERILIZER TO EDUCATE ON HYPERTENSION SELF-MANAGEMENT PT TO ASSESS / SURGICAL SUPPLIES STERILIZER TO MONITOR CARDIO/RESPIRATORY SYSTEM; AND NOTIFY THE PHYSICIAN AND/OR THE RN CLINICAL ARMHOLE SEWER FOR PHYSICIAN NOTIFICATION FOR EARLY SIGNS AND SYMPTOMS OF EXACERBATION OR DETERIORATION. PT / SURGICAL SUPPLIES STERILIZER TO EDUCATE ON COPD SELF-MANAGEMENT PT/SURGICAL SUPPLIES STERILIZER TO IDENTIFY FALL RISK FACTORS; EDUCATE THE PATIENT/CAREGIVER ON WAYS TO REDUCE FALL RISK FACTORS AND ESTABLISH HOME EXERCISE PROGRAM TO MINIMIZE FALL RISK. MAY TEACH THE PATIENT FLOOR RECOVERY WHEN CLINICALLY APPROPRIATE] Goal Patient Goal - T O GET STRONGER AND BE ABLE TO STAND LONGER AND COOK Goal Provider Goal - A PLAN OF CARE WILL BE ESTABLISHED THAT MEETS THE PATIENT S NEEDS. PATIENT WILL DEMONSTRATE OXYGEN SATURATION WITHIN NORMAL LIMITS OR PATIENT S OPTIMAL LEVEL ESTABLISHED BY THE PHYSICIAN THROUGHOUT CARE. CHANGES TO CO-MORBID CONDITIONS AND ANY NEW CONDITIONS WILL BE IDENTIFIED AND REPORTED TO THE PHYSICIAN. Goal Provider Goal - PATIENT/CAREGIVER WILL VERBALIZE UNDERSTANDING OF SIGNS AND SYMPTOMS THAT PUT THE PATIENT AT RISK FOR HOSPITALIZATION /EMERGENCY ROOM VISITS, WHEN TO NOTIFY NURSE/PHYSICIAN OF COMPLICATIONS/DECLINE AND WHEN TO CALL 911. Goal Provider Goal - PATIENT/CAREGIVER WILL VERBALIZE/DEMONSTRATE UNDERSTANDING OF FALL RISK FACTORS AND IMPLEMENT STRATEGIES TO MINIMIZE FALL RISK. PATIENT/CAREGIVER WILL VERBALIZE/DEMONSTRATE AN ABILITY TO ADHERE TO FALL REDUCTION SELF-MANAGEMENT AND LIFE-STYLE CHANGES BY EOE Goal Provider Goal - Goal Provider Goal - Goal Provider Goal - PATIENT / CAREGIVER WILL VERBALIZE / DEMONSTRATE UNDERSTANDING OF PAIN CONTROL MEASURES BY EOE Goal Provider Goal - PATIENT / CAREGIVER WILL VERBALIZE/DEMONSTRATE UNDERSTANDING OF MEASURES TO MANAGE ALTERED CARDIOVASCULAR STATUS BY EOE Goal Provider Goal - PATIENT / CAREGIVER WILL VERBALIZE/DEMONSTRATE AN ABILITY TO ADHERE TO SELF-MANAGEMENT OF HTN TO MINIMIZE COMPLICATIONS AND AVOID HOSPITALIZATION BY END OF EPISODE. Goal Provider Goal - PATIENT / CAREGIVER WILL VERBALIZE/DEMONSTRATE UNDERSTANDING OF MEASURES TO MANAGE ALTERED RESPIRATORY STATUS BY END OF EPISODE. Goal Provider Goal - PATIENT/CAREGIVER WILL VERBALIZE/DEMONSTRATE UNDERSTANDING OF CARE AND MANAGEMENT OF OXYGEN THERAPY BY END OF EPISODE Goal Provider Goal - PATIENT/CAREGIVER WILL VERBALIZE/DEMONSTRATE POSTOPERATIVE CARE TO MINIMIZE COMPLICATION AND AVOID HOSPITALIZATIONS BY THE END OF THE EPISODE. Goal Provider Goal - PATIENT/CAREGIVER WILL VERBALIZE UNDERSTANDING OF CARE AND MANAGEMENT OF ANEMIA BY END OF EPISODE. Goal Provider Goal - PATIENT / CAREGIVER WILL VERBALIZE / DEMONSTRATE ABILITY TO PERFORM WOUND CARE. WOUND STATUS WILL IMPROVE EVIDENCED BY A DECREASE IN SIZE, DRAINAGE, ABSENCE OF INFECTION, AND DECREASED PAIN BY EOE Goal Provider Goal - PATIENT/CAREGIVER TO VERBALIZE, AND CONSISTENTLY DEMONSTRATE EFFECTIVE, SAFE MANAGEMENT OF MEDICATION INCLUDING KNOWLEDGE OF EFFECTIVENESS, POTENTIAL SIDE EFFECTS AND DRUG REACTIONS AND WHEN TO CONTACT THE APPROPRIATE CARE PROVIDER. PATIENT/CAREGIVER WILL BE ABLE TO VERBALIZE UNDERSTANDING OF MEDICATION REGIMEN AND ACCURATELY TAKE MEDICATIONS PRESCRIBED WITHOUT ADVERSE EFFECTS BY EOE Goal Provider Goal - PATIENT / CAREGIVER WILL PROMPTLY REPORT SIGNS AND SYMPTOMS OF BLEEDING OR ADVERSE REACTIONS TO THE PHYSICIAN. PATIENT/CAREGIVER WILL VERBALIZE UNDERSTANDING OF ANTITHROMBOTIC THERAPY MANAGEMENT BY END OF EPISODE. Goal Provider Goal - PATIENT / CAREGIVER WILL VERBALIZE/DEMONSTRATE AN ABILITY TO ADHERE TO SELF-MANAGEMENT OF COPD TO MINIMIZE COMPLICATIONS AND AVOID HOSPITALIZATION BY END OF EPISODE. Goal Provider Goal - CHANGES IN SKIN INTEGRITY STATUS WILL BE IDENTIFIED AND REPORTED TO THE PHYSICIAN FOR PROMPT INTERVENTION. PATIENT / CAREGIVER WILL VERBALIZE/DEMONSTRATE ADEQUATE KNOWLEDGE OF INTEGUMENTARY STATUS AND APPROPRIATE MEASURES TO PROMOTE SKIN INTEGRITY AND PREVENT INJURY BY EOE Goal Provider Goal - CHANGES IN SKIN INTEGRITY STATUS RELATED TO PRESSURE INJURY MANAGEMENT WILL BE IDENTIFIED AND REPORTED TO THE PHYSICIAN FOR PROMPT INTERVENTION. PATIENT / CAREGIVER WILL VERBALIZE/DEMONSTRATE ADEQUATE KNOWLEDGE OF INTEGUMENTARY STATUS AND APPROPRIATE MEASURES TO PROMOTE SKIN INTEGRITY AND PREVENT INJURY BY EOE Goal Provider Goal - PATIENT WILL DEMONSTRATE IMPROVEMENT IN S/S OF WOUND INFECTION/DETERIORATION/STAGNATION TO AVOID HOSPITALIZATION. Goal Provider Goal - PATIENT WILL DEMONSTRATE IMPROVEMENT IN S/S OF WOUND INFECTION/DETERIORATION/STAGNATION TO AVOID HOSPITALIZATION. Goal Provider Goal - PATIENT / CAREGIVER WILL VERBALIZE/DEMONSTRATE CARE AND SELF-MANAGEMENT OF AMI TO MINIMIZE COMPLICATIONS AND AVOID HOSPITALIZATION BY END OF EPISODE. Goal Provider Goal - Goal Provider Goal - PATIENT/CAREGIVER WILL VERBALIZE/ DEMONSTRATE AN ABILITY TO ADHERE TO SELF-MANAGEMENT OF ASTHMA TO MINIMIZE COMPLICATIONS AND AVOID HOSPITALIZATIONS BY END OF EPISODE. Goal Provider Goal - PT LTG: PATIENT WILL DEMONSTRATE REDUCED GAIT DEVIATIONS TO REDUCE THE RISK FOR FALLING AND MINIMIZE STRAIN ON KNEES/HIPS AND BACK EVIDENCED BY IMPROVED HEEL STRIKE AND STANCE PHASE TO WALK 250 FT OF LEVEL SURFACE INDEPENDENTLY WITHOUT AD FROM CGA WITH FRONT WHEELED WALKER IN ORDER TO ACCESS MD OFFICE WITHIN 9 WEEKS. PT LTG: PATIENT WILL DEMONSTRATE REDUCED FALL RISK EVIDENCED BY TINETTI TEST IMPROVING FROM 9 TO 21 WITHIN 9 WEEKS. PT LTG: PATIENT WILL DEMONSTRATE IMPROVED POSTURAL CONTROL AND SENSORY INTEGRATION OF THEIR BALANCE SYSTEMS EVIDENCED BY MCTSIB IMPROVING FROM 0 TO 2 WITHIN 9 WEEKS. PT STG: PATIENT WILL SAFELY PERFORM HEP WITH SUPERVISION WITHIN 3WEEKS. PT LTG: PATIENT WILL DEMONSTRATE INCREASED STRENGTH OF R LE FROM 3+/5 TO 4+/5 WITHIN 9 WEEKS IN ORDER TO AMBULATE INDEPENDENTLY. PT LTG: PATIENT WILL DEMONSTRATE IMPROVED ABILITY TO SAFELY NEGOTIATE STAIRS FROM UNABLE TO INDEPENDENT WITHOUT AD IN ORDER TO GO IN AND OUT OF THE HOUSE WITHIN 9 WEEKS. PT STG: PATIENT WILL DEMONSTRATE IMPROVED ABILITY TO PERFORM SIT TO/FROM STAND TRANSFERS TO REDUCE THE RISK OF SKIN BREAKDOWN AND REDUCE FALL RISK FROM CGA TO INDEPENDENT WITHIN 4 WEEKS. PT LTG: PATIENT WILL MAINTAIN OXYGEN SATURATION WITHIN PHYSICIAN ORDERED PARAMETERS THROUGHOUT EPISODE OF CARE. PT GOAL: PATIENT/CAREGIVER WILL DEMONSTRATE UNDERSTANDING OF OXYGEN SAFETY, CARE, AND MANAGEMENT BY END OF EPISODE AND PATIENT WILL MAINTAIN SAFE OXYGEN LEVELS DURING ACTIVITY PT LTG: EARLY IDENTIFICATION OF WORSENING DEPRESSION WITH TIMELY SN AND/OR PHYSICIAN NOTIFICATION. PT GOAL: PATIENT WILL DEMONSTRATE UNDERSTANDING OF PAIN MANAGEMENT TECHNIQUES EVIDENCED BY REDUCED PAIN IN R KNEE FROM >6/10 TO 3/10 WITHIN 9 WEEKS. PT GOAL: PATIENT/CAREGIVER WILL VERBALIZE UNDERSTANDING OF SIGNS AND SYMPTOMS THAT PUT THE PATIENT AT RISK FOR HOSPITALIZATION /EMERGENCY ROOM VISITS, WHEN TO NOTIFY NURSE/PHYSICIAN OF COMPLICATIONS/DECLINE AND WHEN TO CALL 911. PT GOAL: THE PATIENT WILL NOT DEMONSTRATE ANY WOUND COMPLICATIONS DURING THE EPISODE OF CARE. PT GOAL: PATIENT WILL DEMONSTRATE OPTIMAL OUTCOMES INCLUDING INCREASED STRENGTH AND MOBILITY WITH NO COMPLICATIONS FOLLOWING FEMUR FRACTURE/ORIF BY END OF EPISODE. PT GOAL: PATIENT/CAREGIVER WILL BE ABLE TO IDENTIFY SIGNS OF EXACERBATION OF HYPERTENSION AND WILL VERBALIZE/DEMONSTRATE AN ABILITY TO ADHERE TO HYPERTENSION SELF-MANAGEMENT AND LIFE-STYLE CHANGES BY END OF EPISODE PT LTG: PATIENT WILL NOT EXPERIENCE CARDIAC OR RESPIRATORY COMPLICATIONS THROUGHOUT THE EPISODE OF CARE. PT GOAL: THE PATIENT / CAREGIVER WILL DEMONSTRATE ADHERENCE TO COPD SELF-MANAGEMENT BY END OF EPISODE. PT LTG: PATIENT/CAREGIVER WILL DEMONSTRATE ADHERENCE TO FALL REDUCTION SELF-MANAGEMENT AND REDUCING FALL RISK FACTORS TO MINIMIZE FALL RISK BY END OF EPISODE. PT LTG: PATIENT WILL BE INDEPENDENT WITH IMPLEMENTATION OF HEP WITHIN 9 WEEKS. Encounters Start Date/Time End Date/Time Encounter Type Admission Type Attending Clinicians [facility] Facility Care Department Encounter ID Discharge Date Discharge Status Discharge Condition Discharge Reason Percent Goals Met 2025-06-02 00:00:00 2025-07-31 00:00:00 Outpatient NEW ADMISSION [facility] [id number]
== END 2025-07-24 20:19 | disposition expired ==
LOC: ANHED 16:17 → ANH3MEDSUR 19:50
PROVIDERS: Emergency Provider Emergency Medicine; PCP Nurse Practitioner Family
DX: J96.21 Acute and chronic respiratory failure with hypoxia (principal); J18.9 Pneumonia, unspecified organism; N17.9 Acute kidney failure, unspecified; J44.9 Chronic obstructive pulmonary disease, unspecified; Z99.81 Dependence on supplemental oxygen; Z87.891 Personal history of nicotine dependence
CPT/HCPCS: 36415; 36600; 71045; 80053; 83735; 83880; 84484; 85025; 85610; 85730; 93005; 94640; 96361; 96374; 96375; 96376; 99291; A9270; J2270; J2405; J2919; J7030